=== PATIENT | female | born 1935 | race Caucasian/White ===

== ENCOUNTER 2017-09-05 09:33 | Emergency (ER) | payer OTHER, MEDICARE ==
[~2017-09-05] VITALS: Ht 157.5 cm; Wt 50.0 kg
[~2017-09-05 09:33] MED LIST: SPIR50TA2 PO
[2017-09-05 09:40] VITALS: TEMP 36.7; Ht 157.5 cm; Wt 50.0 kg
--- NOTE | 2017-09-05 10:59 | DIAGNOSTIC IMAGING REPORT ---
L TIBIA/FIBULA 2 VIEWS ROUTINE CLINICAL HISTORY: L leg pain mid wyatt pain. Trauma. COMPARISON: None. DISCUSSION: Nondisplaced oblique fracture proximal fibular shaft. Remaining osseous structures show no additional acute abnormality. Mild soft tissue edema is present. IMPRESSION: Nondisplaced oblique fracture proximal fibular shaft The above report was generated using voice recognition software. It may contain grammatical, syntax or spelling errors. Electronically signed by: Phil Emmanuel M.D. 09/05/2017 10:58 AM Dictated Date/Time: 09/05/2017 10:57 AM
--- NOTE | 2017-09-05 11:00 | DIAGNOSTIC IMAGING REPORT ---
L ANKLE MIN 3 VIEWS ROUTINE CLINICAL HISTORY: med ankle COMPARISON: None. DISCUSSION: Mild degenerative change. Mild soft tissue edema. Small old avulsion tip distal fibula. No acute bony abnormality. Mild soft tissue edema IMPRESSION: Mild soft tissue edema. Small old avulsions. No acute abnormality. The above report was generated using voice recognition software. It may contain grammatical, syntax or spelling errors. Electronically signed by: Phil Emmanuel M.D. 09/05/2017 10:59 AM Dictated Date/Time: 09/05/2017 10:58 AM
--- NOTE | 2017-09-05 11:01 | DIAGNOSTIC IMAGING REPORT ---
R FOOT MIN 3 VIEWS ROUTINE CLINICAL HISTORY: mid of arch pain. Trauma. COMPARISON: None. DISCUSSION: The bones and joint spaces appear intact. There is no evidence of fracture, dislocation or bony disease. There is no evidence for soft tissue swelling. IMPRESSION: Negative study. The above report was generated using voice recognition software. It may contain grammatical, syntax or spelling errors. Electronically signed by: Phil Emmanuel M.D. 09/05/2017 11:00 AM Dictated Date/Time: 09/05/2017 11:00 AM
--- NOTE | 2017-09-05 11:01 | DIAGNOSTIC IMAGING REPORT ---
L FOOT MIN 3 VIEWS ROUTINE CLINICAL HISTORY: arch foot pain. Trauma. COMPARISON: None. DISCUSSION: The bones and joint spaces appear intact. There is no evidence of fracture, dislocation or bony disease. There is no evidence for soft tissue swelling. IMPRESSION: Negative study. The above report was generated using voice recognition software. It may contain grammatical, syntax or spelling errors. Electronically signed by: Phil Emmanuel M.D. 09/05/2017 10:59 AM Dictated Date/Time: 09/05/2017 10:59 AM
--- NOTE | 2017-09-05 11:03 | DIAGNOSTIC IMAGING REPORT ---
R ANKLE MIN 3 VIEWS ROUTINE CLINICAL HISTORY: lat ankle trauma COMPARISON: None. DISCUSSION: Nondisplaced cortical fracture distal fibula. Small avulsion medial malleolus. Lateral soft tissue edema. All remaining osseous structures are unremarkable. IMPRESSION: Nondisplaced transverse cortical fracture distal fibula. The above report was generated using voice recognition software. It may contain grammatical, syntax or spelling errors. Electronically signed by: Phil Emmanuel M.D. 09/05/2017 11:02 AM Dictated Date/Time: 09/05/2017 11:01 AM
--- NOTE | 2017-09-05 11:04 | DIAGNOSTIC IMAGING REPORT ---
R TIBIA/FIBULA 2 VIEWS ROUTINE CLINICAL HISTORY: r mid wyatt trauma. Pain. COMPARISON: None. DISCUSSION: The bones and joint spaces appear intact. There is no evidence of fracture, dislocation or bony disease. There is no evidence for soft tissue swelling. IMPRESSION: Negative study. The above report was generated using voice recognition software. It may contain grammatical, syntax or spelling errors. Electronically signed by: Phil Emmanuel M.D. 09/05/2017 11:02 AM Dictated Date/Time: 09/05/2017 11:02 AM
[2017-09-05] MEDS ORDERED: OXYC1TAB3 PO (12:23)
[2017-09-05 13:17] VITALS: BP 139/82; PULSE 97; O2SAT 96
--- NOTE | 2017-09-05 16:49 | EMERGENCY ROOM VISIT NOTE ---
History Report prepared by Jasonibravindra: Rhea Soriano Under the Supervision of: Dr. Brock Hernandez D.O. First contact with patient: 09:50 Chief Complaint: LEG PAIN,LEG INJURY Stated Complaint: FALL, R LEG PAIN WITH LEFT LEG DISCOMFORT History of Present Illness The patient is an 82 year old female who presents to the Emergency Room with complaints of persistent bilateral leg pain that started prior to arrival. She is accompanied by her daughter. She states one of her shoes got caught and she slipped down 2 stairs while helping to clean her [place] this morning. She fell onto her right side and hit the back of her head during the fall but did not lose consciousness. She does not take blood thinners. The patient currently complains of bilateral leg pain that is worsened by movement. She rates her discomfort as a 10/10 in severity. She can still feel normal sensation in both of her feet and legs. She states she was nauseous prior to arrival to the ED, but is no longer nauseous on exam. Pt denies headache, change in vision, fevers , chest pain, shortness of breath, vomiting, diarrhea, pain with urination, and melena. Source of History: patient, family (daughter) Onset: [employer] Position: leg (bilateral) Symptom Intensity: 10/10 Timing: other (persistent) Modifying Factors (Worsening): movement Associated Symptoms: + nausea, No fevers, No headache, No chest pain, No SOB , No vomiting, No melena, No diarrhea, No urinary symptoms Review of Systems See HPI for pertinent positives & negatives. A total of 10 systems reviewed and were otherwise negative. Past Medical & Surgical Medical Problems: (1) Acute kidney injury (2) ARF (acute renal failure) (3) Dehydration (4) Diarrhea (5) Hyperlipidemia Nec/Nos (6) Hypertension Nos (7) Intractable vomiting (8) Meniere's Disease, Unspecified (9) Osteoporosis Nos (10) Vertigo Family History Heart disease Social History Smoking Status: Never Smoker Alcohol Use: none Drug Use: none Marital Status: Housing Status: lives alone Occupation Status: retired Current/Historical Medications Scheduled Spironolactone (Aldactone), 50 MG PO QAM Scheduled PRN Oxycodone Immediate Rel Tab (Roxicodone Ir), 5 MG PO Q6H PRN for Pain Allergies Coded Allergies: Sulfa Drugs (Verified Allergy, Mild, 10/12/14) Statins (Verified Allergy, Unknown, unknown, 10/12/14) Physical Exam Vital Signs Date Time Temp Pulse Resp B/P (MAP) Pulse Ox O2 Delivery O2 Flow Rate FiO2 09/05/17 13:17 97 18 139/82 96 09/05/17 11:40 82 22 126/65 97 Room Air 09/05/17 09:40 36.7 80 20 138/81 97 Room Air Physical Exam GENERAL: Patient is sitting up on edge of bed, alert, well appearing, well nourished, no distress, non-toxic HEAD: normal cephalic, atraumatic EYE EXAM: normal conjunctiva, PERRL and EOM's grossly intact OROPHARYNX: no exudate, no erythema, lips, buccal mucosa, and tongue normal and mucous membranes are moist EARS: TMs clear b/l NECK: supple, no nuchal rigidity, no adenopathy, non-tender CHEST: stable to compression anteriorly and posteriorly LUNGS: clear to auscultation. Normal chest wall mechanics HEART: no murmurs, S1 normal and S2 normal ABDOMEN: abdomen soft, non-tender, normo-active bowel sounds, no masses, no rebound or guarding. PELVIS: stable to compression anteriorly and posteriorly BACK: Back is symmetrical on inspection and there is no deformity, no midline tenderness, no CVA tenderness. UPPER EXTREMITIES: Full active and passive range of motion of all joints without tenderness to palpation LOWER EXTREMITIES: Full active and passive ROM of bilateral hips and femur without tenderness, left leg with tenderness to mid wyatt down to medial malleolus, foot is nontender, with full ROM of ankle, DP's 2/4. Right lower extremity with tenderness from mid wyatt down to right lateral malleolus with a large amount of swelling, tenderness over mid right arch, DP's 2/4, gross sensation intact bilaterally. NEURO EXAM: Normal sensorium, cranial nerves II-XII grossly intact, normal speech, no gross weakness of arms, no gross weakness of legs. GCS: 15. Medical Decision & Procedures ER Provider Diagnostic Interpretation: Radiology results as stated below per my review and the radiologist's interpretation: L ANKLE MIN 3 VIEWS ROUTINE CLINICAL HISTORY: med ankle COMPARISON: None. DISCUSSION: Mild degenerative change. Mild soft tissue edema. Small old avulsion tip distal fibula. No acute bony abnormality. Mild soft tissue edema IMPRESSION: Mild soft tissue edema. Small old avulsions. No acute abnormality. The above report was generated using voice recognition software. It may contain grammatical, syntax or spelling errors. Electronically signed by: Phil Emmanuel M.D. 09/05/2017 10:59 AM R ANKLE MIN 3 VIEWS ROUTINE CLINICAL HISTORY: lat ankle trauma COMPARISON: None. DISCUSSION: Nondisplaced cortical fracture distal fibula. Small avulsion medial malleolus. Lateral soft tissue edema. All remaining osseous structures are unremarkable. IMPRESSION: Nondisplaced transverse cortical fracture distal fibula. The above report was generated using voice recognition software. It may contain grammatical, syntax or spelling errors. Electronically signed by: Phil Emmanuel M.D. 09/05/2017 11:02 AM L FOOT MIN 3 VIEWS ROUTINE CLINICAL HISTORY: arch foot pain. Trauma. COMPARISON: None. DISCUSSION: The bones and joint spaces appear intact. There is no evidence of fracture, dislocation or bony disease. There is no evidence for soft tissue swelling. IMPRESSION: Negative study. The above report was generated using voice recognition software. It may contain grammatical, syntax or spelling errors. Electronically signed by: Phil Emmanuel M.D. 09/05/2017 10:59 AM R FOOT MIN 3 VIEWS ROUTINE CLINICAL HISTORY: mid of arch pain. Trauma. COMPARISON: None. DISCUSSION: The bones and joint spaces appear intact. There is no evidence of fracture, dislocation or bony disease. There is no evidence for soft tissue swelling. IMPRESSION: Negative study. The above report was generated using voice recognition software. It may contain grammatical, syntax or spelling errors. Electronically signed by: Phil Emmanuel M.D. 09/05/2017 11:00 AM L TIBIA/FIBULA 2 VIEWS ROUTINE CLINICAL HISTORY: L leg pain mid wyatt pain. Trauma. COMPARISON: None. DISCUSSION: Nondisplaced oblique fracture proximal fibular shaft. Remaining osseous structures show no additional acute abnormality. Mild soft tissue edema is present. IMPRESSION: Nondisplaced oblique fracture proximal fibular shaft The above report was generated using voice recognition software. It may contain grammatical, syntax or spelling errors. Electronically signed by: Phil Emmanuel M.D. 09/05/2017 10:58 AM R TIBIA/FIBULA 2 VIEWS ROUTINE CLINICAL HISTORY: r mid wyatt trauma. Pain. COMPARISON: None. DISCUSSION: The bones and joint spaces appear intact. There is no evidence of fracture, dislocation or bony disease. There is no evidence for soft tissue swelling. IMPRESSION: Negative study. The above report was generated using voice recognition software. It may contain grammatical, syntax or spelling errors. Electronically signed by: Phil Emmanuel M.D. 09/05/2017 11:02 AM ED Course ED COURSE: Vital signs were reviewed and showed normal vital signs The patients medical record was reviewed The above diagnostic studies were performed and reviewed. ED treatments and interventions as stated above. 0951: The patient was evaluated in room A9. A complete history and physical examination was performed. 1201: I discussed the patients case with Dr. Hoffman, [facility]. He recommends the patient be placed in a walking boot and follow up in the office next week. 1220: Upon reevaluation, the patient is resting comfortably and feels ready to go home. She doesn't want pain medication and states she has a walker at home. I discussed my findings with the patient and she understands and agrees with the treatment plan. Based on the patients age, coexisting illnesses, exam and lab findings the decision to treat as an outpatient was made. The patient remained stable while under my care. The patient appeared well at the time of discharge. Medical Decision Differential diagnoses include major intracranial, cervical, spinal, thoracic, abdominal, pelvic and neurologic injury. Fracture, contusion, sprain, strain, laceration, abrasions included as well. Patient is an 82-year-old female that presents to ER following a mechanical fall. She did not hit her head. She has no other complaints with the exception of pain in the bilateral shins and ankles. Right ankle is swollen. X -rays show a left proximal fibula and distal fibula fracture. There is a questionable acute versus subacute fracture of the right ankle. Discuss with orthopedics. Patient did request to go home. Based on this after long discussion we placed her in 1 walking boot which was placed on the left lower extremity. She has a walker at home which she will use. She was given narcotics although she notes that she will not use these. It would be ideal to have walking boots on both sides but due to her age and favored she would be a higher fall risk and consequently only placed one walking boot on the left lower extremity. She will follow up with orthopedics as an outpatient. Discussed with Pt concerning signs and symptoms to watch out for. Pt was instructed to follow up with their PCP and discussed with the patient their option to return to the ED at anytime for persistent or worsening symptoms. The appropriate anticipatory guidance and out-patient management, including indications for return to the emergency department, were explained at length to the patient and understood. Medication Reconcilliation Current Medication List: was personally reviewed by me Blood Pressure Screening Patient's blood pressure: Normal blood pressure Blood pressure disposition: Did not require urgent referral Consults Time Called: 1130 Consulting Physician: Dr. Hoffman, [facility] Returned Call: 1201 I discussed the patients case with Dr. Hoffman, [facility]. He recommends the patient be placed in a walking boot and follow up in the office next week. Impression Primary Impression: Closed fracture of both ankles Scribe Attestation The scribe's documentation has been prepared under my direction and personally reviewed by me in its entirety. I confirm that the note above accurately reflects all work, treatment, procedures, and medical decision making performed by me. Departure Information Dispostion Home / Self-Care Prescriptions Oxycodone Immediate Rel Tab (ROXICODONE IR) 5 Mg Tab 5 MG PO Q6H Y for Pain, #10 TAB Prov: Brock Hernandez, 09/05/17 Referrals Mike East MD (PCP) Patient Instructions Ankle Fx, ED Fx Ankle Lateral Malleolus, My [facility] Additional Instructions Please follow up with your primary care doctor with in the next 24 hours. Any worsening of your symptoms, please return to the ED immediately. This includes any fevers greater than 100.4, worsening pain, chest pain, shortness breath, persistent nausea, vomiting, unable to eat or drink, or any other concerning signs or symptoms from your standpoint. Your found to have 2 fractures of your left tibia and one fracture of the right ankle. Please use the walking boot on her left lower leg. Please use a walker when walking. Please follow-up with orthopedics within the next week. You were also given a prescription for a narcotic. While taking this medication you should also not drive, operate machinery and or work. Problem Qualifiers Primary Impression: Closed fracture of both ankles Encounter type: initial encounter Qualified Codes: S82.891A - Other fracture of right lower leg, initial encounter for closed fracture; S82.892A - Other fracture of left lower leg, initial encounter for closed fracture
== END 2017-09-05 13:18 | disposition home or self-care (01) ==
LOC: C.EDB 09:36 → C.EDA 13:18
DX: S82.424A Nondisplaced transverse fracture of shaft of right fibula, initial encounter for closed fracture (principal); S82.832A Other fracture of upper and lower end of left fibula, initial encounter for closed fracture; W10.9XXA Fall (on) (from) unspecified stairs and steps, initial encounter; Y92.22 Religious institution as the place of occurrence of the external cause; Y93.E9 Activity, other interior property and clothing maintenance; I10 Essential (primary) hypertension; E78.5 Hyperlipidemia, unspecified; H81.09 Meniere's disease, unspecified ear; M81.0 Age-related osteoporosis without current pathological fracture; Z88.2 Allergy status to sulfonamides; Z88.8 Allergy status to other drugs, medicaments and biological substances

== ENCOUNTER 2019-06-09 17:23 | Inpatient (IN) ==
--- OUTSIDE RECORDS SUMMARY | 2019-06-09 17:26 | External Medical Summary | Continuity of Care Document ---
:1935 Author Name Elyssa Roberto, Provider Address Unavailable Unavailable , Care Team Providers Name Role Phone Cyril [email or web address] [place] [facility], C Unavailable Unavailable Unavailable Unavailable Unavailable Assessments Assessed Problems:Epistaxis Problems Epistaxis (784.7) (R04.0) Allergies and Adverse Reactions Cipro TABS (Allergy) Sulfa Drugs (Allergy) Medications Aldactone 50 MG Oral Tablet Refills: 0 Meclizine HCl - 12.5 MG Oral Tablet Refills: 0 KlonoPIN Wafer 0.5 MG TBDP Refills: 0 Norvasc 5 MG Oral Tablet Refills: 0 Vitamin D TABS Refills: 0 Mupirocin 2 % External Ointment; Apply a generous amount of ointment 2-3 times per day as directed Felisa Cabrera Start: 18-Mar-2010 Quantity: 1 22 GM Tube Refills: 3 Procedures History of Appendectomy Status: Complete d Immunizations Immunizations not documented Family History Father Family history of Acute Myocardial Infarction (V17.3) Status : Active Social History - Smoking Status Unknown if ever smoked Interventions Medication ChangesMupirocin 2 % External Ointment - Start Plan of Treatment Planned Observations Planned Goals not documented Results No Known Results Results not documented Encounters Appointment; Cyril Cabrera M.D. 18-Mar-2010 14:40 Encounter Diagnosis: Problem not documented
--- NOTE | 2019-06-09 18:07 | XRay Report ---
XR hip RT min 2V CLINICAL HISTORY: Right hip pain following fall. COMPARISON: CT of the abdomen and pelvis July 20, 2014. FINDINGS: Note is made of an acute displaced right femoral neck fracture, likely subcapital. Distal component is displaced anteriorly. No additional fractures are identified on this exam. No osseous le ines is identified. IMPRESSION: Acute displaced right femoral neck fracture. ACT 112: Negative or not required by law. Electronically signed by: Junaid Cuevas M.D. 06/09/2019 6:05 PM
[2019-06-09] MEDS ORDERED: ACETAMINOPHEN 500 MG TAB PO PRN (18:08)
[2019-06-09] MEDS ORDERED: HYDROmorphone INJ 0.5 MG/0.5 ML SYR IV PRN ×3 (18:08→20:59)
[2019-06-09] MEDS ORDERED: LACTATED RINGER'S 1,000 ML IV SCH (18:15)
--- NOTE | 2019-06-09 18:39 | XRay Report ---
SINGLE VIEW CHEST CLINICAL HISTORY: Hip fracture. FINDINGS: An AP, portable, semierect chest radiograph is compared to study dated 08/21/2014. The examin ation is degraded by portable technique and patient rotation. The heart is normal for projection. The re is a large hiatal hernia. Chronic interstitial thickening is similar to previous. There is bibasil ar scarring/atelectasis. No airspace consolidation is seen typical for pneumonia and there is no larg e pleural effusion. No pneumothorax is seen. The skeletal structures are osteopenic. The bony thorax is grossly intact. Degenerative change and scoliosis are noted in the thoracic spine. IMPRESSION: 1. No active disease in the chest. 2. Large hiatal hernia. ACT 112: Negative or not required by law. Electronically signed by: Maximo Crowley M.D. 06/09/2019 6:38 PM
[2019-06-09 19:15] LABS: Basophils # (auto) 0.01 K/uL (0-0.2); Basophils % (auto) 0.2 %; Eosinophils # (auto) 0.05 K/uL (0-0.5); Eosinophils % (auto) 0.8 %; Hemoglobin 12.3 g/dL (12.0-16.0); Immature Granulocytes # (auto) 0.01 K/uL (0.00-0.02); Immature Granulocytes % (auto) 0.2 %; Lymphocytes # (auto) 0.93 K/uL (1.2-3.4); Mean Corpuscular Hemoglobin 32.9 pg (25-34); Mean Corpuscular Hgb Conc 33.2 g/dL (32-36); Mean Corpuscular Volume 98.9 fL (80-100); Mean Platelet Volume 9.1 fL (7.4-10.4); Monocytes # (auto) 0.21 K/uL (0.11-0.59); Monocytes % (auto) 3.4 %; Neutrophils # (auto) 5.01 K/uL (1.4-6.5); Neutrophils % (auto) 80.4 %; Platelet Count 201 K/uL (130-400); RDW Coefficient of Variation 16.8 % (11.5-14.5); RDW Standard Deviation 59.1 fL (36.4-46.3); Red Blood Count 3.74 M/uL (4.2-5.4); White Blood Count 6.22 K/uL (4.8-10.8)
[2019-06-09] MEDS ORDERED: ONDANSETRON INJ 2 MG/ML 2 ML VIAL ONE (19:16)
[2019-06-09] MEDS ORDERED: ONDANSETRON INJ 2 MG/ML 2 ML VIAL IV STA ×2 (19:17→20:11)
[2019-06-09 19:32] LABS: BUN Creatinine Ratio 27.1 (10-20); Calcium 8.6 mg/dl (8.5-10.1); Creatinine Clr Calc Pharmacy 35.3 ml/min; Est GFR (African American) 55.4; Est GFR (Non-African American) 47.8; Partial Thromboplastin Ratio 0.9; Partial Thromboplastin Time 25.7 Seconds (21.0-31.0); Potassium 4.2 mmol/L (3.5-5.1); Prothrombin Time 10.5 Seconds (9.0-12.0)
[2019-06-09 20:29] LABS: Appearance Urine Clear (Clear); Bilirubin Urine Negative (Negative); Blood Urine Negative (Negative); Color Urine Yellow; Glucose Urine UA Negative (Negative); Ketones Urine Negative (Negative); Leukocyte Esterase Urine Negative (Negative); Nitrite Urine Negative (Negative); Protein Urine Negative (Negative); Specific Gravity Urine 1.013 (1.000-1.030); Urobilinogen Urine Negative (Negative)
[2019-06-09] MEDS ORDERED: FLUTICASONE PROPIONATE NA SPR 16 GM BTL PRN (20:59)
[2019-06-09] MEDS ORDERED: ONDANSETRON INJ 2 MG/ML 2 ML VIAL IV PRN (20:59)
[2019-06-09] MEDS ORDERED: POLYETHYLENE (MIRALAX) 17 GM PACK PO PRN (20:59)
--- NOTE | 2019-06-09 21:13 | Emergency Department Note ---
Entered by Shaneka Castañeda acting as a scribe for Waylon Urbina MD ED Provider Note CHIEF COMPLAINT: fall HISTORY OF PRESENT ILLNESS: The patient is a 84 year old F who presents to the Emergency Room with complaints of an episode of a fall that occurred prior to arrival. The patient denies hitting her head or losing consciousness during her fall. She notes that she is currently experiencing hip pain. She adds that her pain radiates down her right leg. She rates her pain as 7 out of 10. She notes that her orthopedic surgeon is Dr. Sanabira. Pt denies LOC, headache, fevers, chills, diaphoresis, visual changes, neck pain, chest pain, breathing difficulties, nausea, vomiting, abdominal pain, back pain, arm pain, melena, hematochezia, urinary symptoms, numbness, weakness, lymphadenopathy, rash, or other complaints. REVIEW OF SYSTEMS: See HPI for pertinent positives and negatives. A total of ten systems were reviewed and were otherwise negative. PMHx/PSHx: Hiatal hernia, hyperlipidemia, Meniere disease, osteoarthritis, appendectomy SOCIAL HISTORY: Patient lives at home. The patient drinks alcohol. PHYSICAL EXAM: GENERAL: Awake, alert, uncomfortable-appearing, in no distress HENT: Normocephalic, atraumatic. Oropharynx unremarkable. EYES: PERRL. Normal conjunctiva. Sclera non-icteric. NECK: Inspection normal. Non-tender. Supple. No nuchal rigidity. FROM. No masses. RESPIRATORY: Clear to auscultation. No wheezes. No rales. Normal respiratory effort. CARDIAC: Normal rate. Normal rhythm. No murmurs. No rubs. Extremities warm and well perfused. Pulses equal. No JVD. GI: Soft, non-distended. No tenderness to palpation. No rebound or guarding. No masses. RECTAL: Deferred. MUSCULOSKELETAL: Atraumatic. Chest examination reveals no tenderness. The back is symmetrical on inspection without obvious abnormality. There is no CVA tenderness to palpation. No joint edema. Tenderness of right hip. LOWER EXTREMITIES: Calves are equal size bilaterally and non-tender. No edema. No discoloration. NEURO: Normal sensorium. No sensory deficits. ROM is limited secondary to pain SKIN: No rash or jaundice noted. EMERGENCY DEPARTMENT COURSE: 1814: The patient was evaluated in room B4B, and a complete history and physical examination were performed. 1947: I reviewed the patient's case with Dr. Watkins, Orthopedic [place]. He states that he is going to inform the patient's orthopedist and recommend a normal fracture case. 1949: I reviewed the patient's case with Dr. Montalvo, [facility] Hospitalist. He will evaluate the patient for further management. MEDICAL DECISION MAKING: Triage Nursing notes reviewed and agree them. Additional history obtained from family. The patient's history was concerning for traumatic injury. Differential diagnosis: Etiologies such as fracture, dislocation, neurovascular compromise, compartment syndrome, soft tissue injury, as well as others were entertained. Physical examination: Consistent with an isolated hip injury. ER treatment provided: IV lock Zofran 4mg IV Morphine IV NPO Bedrest On reassessment the patient felt better. Diagnostics interpreted by me: ECG: No acute process. The labs revealed an unremarkable CBC, coags, and chemistry panel. Imaging studies: X-ray imaging revealed a right hip fracture. Closed. The patient has an isolated hip fracture and will need admission to the hospital. Consultation: A consultation was placed with orthopedics and the hospitalist. The case was discussed and diagnostics were reviewed. The patient was evaluated in the ER for further treatment. IMPRESSION: right hip fracture, fall PLAN: Admitted as inpatient. The scribe's documentation has been prepared under my direction and personally reviewed by me in its entirety. I confirm that the note above accurately reflects all work, treatment, procedures, and medical decision making performed by me. Impression & Plan Closed right hip fracture, Fall Past Med/Surg History Medical History Displaced fracture of right femoral neck Hiatal hernia Hyperlipidemia Meniere disease Osteoarthritis Vertigo (Chronic) Surgical History History of appendectomy History of cataract surgery History of colonoscopy History of open reduction and internal fixation (ORIF) procedure rt/left arm (s/p fx after falling) Social History Preferred Language: Nepali Communication Ability: Effective Pigs Feet Finisher Required: No Beliefs That Will Affect Care: None marital status: / Current Living Situation: Family Current Living Situation Comment: lives with daughter Cher Other Information That Helps Us Care for You: No Feels Safe at Home: Yes Safety Concerns: Feels Safe At This Time Smoking Status: Never smoker Do You Dip or Chew Tobacco: No ; Second Hand Exposure: No ; Tobacco Cessation Education Requested by Patient: No Hx Alcohol Use: Yes Alcohol type: wine Hx Substance Use: No Results & Data Vital Signs Vital Signs - 24 hr 06/09/19 17:37 06/09/19 19:49 Pulse Rate 94 H 76 Pulse Rate from SpO2 Sensor 76 Respiratory Rate 20 23 Respiratory Effort / Characteristics Non-Labored Spontaneous Respiratory Depth Normal Respiratory Pattern Regular Blood Pressure 143/65 H 151/63 H Blood Pressure Mean 91 91 Pulse Oximetry 96 97 Oxygen Delivery Method Room Air Sepsis Recent Fever Within 48 Hours No Sepsis Action Taken by Nursing No Action Required Home Medications Current Medication List: was personally reviewed by me Laboratory Data Attestation: I reviewed the patient's lab results. Result diagrams: 06/10/19 05:21 06/10/19 05:21 Lab Results 06/09/19 06/09/19 06/09/19 Range/Units 19:04 19:07 19:07 WBC 6.22 (4.8-10.8) K/uL RBC 3.74 L (4.2-5.4) M/uL Hgb 12.3 (12.0-16.0) g/dL Hct 37.0 (37-47) % MCV 98.9 (80-100) fL MCH 32.9 (25-34) pg MCHC 33.2 (32-36) g/dL RDW Std Deviation 59.1 H (36.4-46.3) fL RDW Coeff of Vanna 16.8 H (11.5-14.5) % Plt Count 201 (130-400) K/uL MPV 9.1 (7.4-10.4) fL Immature Gran % (Auto) 0.2 % Neut % (Auto) 80.4 % Lymph % (Auto) 15.0 % [place] % (Auto) 3.4 % Eos % (Auto) 0.8 % Baso % (Auto) 0.2 % Immature Gran # (Auto) 0.01 (0.00-0.02) K/uL Neut # (Auto) 5.01 (1.4-6.5) K/uL Lymph # (Auto) 0.93 L (1.2-3.4) K/uL [place] # (Auto) 0.21 (0.11-0.59) K/uL Eos # (Auto) 0.05 (0-0.5) K/uL Baso # (Auto) 0.01 (0-0.2) K/uL PT 10.5 (9.0-12.0) Seconds INR 1.0 (0.9-1.1) APTT 25.7 (21.0-31.0) Seconds PTT Ratio 0.9 Sodium (136-145) mmol/L Potassium (3.5-5.1) mmol/L Chloride (98-107) mmol/L Carbon Dioxide (21-32) mmol/L Anion Gap (3-11) BUN (7-18) mg/dl Creatinine (0.6-1.2) mg/dl Est Cr Clr Drug Dosing ml/min Est GFR ( Amer) Est GFR (Non-Af Amer) BUN/Creatinine Ratio (10-20) Glucose (70-99) mg/dl Calcium (8.5-10.1) mg/dl Blood Type O Positive Antibody Screen NEGATIVE 06/09/19 Range/Units 19:07 WBC (4.8-10.8) K/uL RBC (4.2-5.4) M/uL Hgb (12.0-16.0) g/dL Hct (37-47) % MCV (80-100) fL MCH (25-34) pg MCHC (32-36) g/dL RDW Std Deviation (36.4-46.3) fL RDW Coeff of Vanna (11.5-14.5) % Plt Count (130-400) K/uL MPV (7.4-10.4) fL Immature Gran % (Auto) % Neut % (Auto) % Lymph % (Auto) % [place] % (Auto) % Eos % (Auto) % Baso % (Auto) % Immature Gran # (Auto) (0.00-0.02) K/uL Neut # (Auto) (1.4-6.5) K/uL Lymph # (Auto) (1.2-3.4) K/uL [place] # (Auto) (0.11-0.59) K/uL Eos # (Auto) (0-0.5) K/uL Baso # (Auto) (0-0.2) K/uL PT (9.0-12.0) Seconds INR (0.9-1.1) APTT (21.0-31.0) Seconds PTT Ratio Sodium 137 (136-145) mmol/L Potassium 4.2 (3.5-5.1) mmol/L Chloride 107 (98-107) mmol/L Carbon Dioxide 26 (21-32) mmol/L Anion Gap 4.0 (3-11) BUN 29 H (7-18) mg/dl Creatinine 1.06 (0.6-1.2) mg/dl Est Cr Clr Drug Dosing 35.3 ml/min Est GFR ( Amer) 55.4 Est GFR (Non-Af Amer) 47.8 BUN/Creatinine Ratio 27.1 H (10-20) Glucose 98 (70-99) mg/dl Calcium 8.6 (8.5-10.1) mg/dl Blood Type Antibody Screen Administered Medications Hydromorphone HCl (Dilaudid) 0.5 mg IV Q3H PRN PRN Reason: Pain Stop: 06/23/19 20:58 Last Admin: 06/10/19 10:32 Dose: 0.5 mg Documented by: [id number] Hydroxyurea (Hydrea) 1,000 mg PO [id number]@0900 [facility] Stop: 07/10/19 08:59 Last Admin: 06/10/19 08:38 Dose: 1,000 mg Documented by: [id number] Cosigned by: [id number] Sodium Chloride (Nss 1000ml) 1,000 mls @ 80 mls/hr IV .[id number] [facility] Stop: 07/09/19 20:58 Last Infusion: 06/10/19 18:17 Dose: 80 mls/hr Documented by: [id number] Infusion: 06/10/19 13:36 Dose: 0 mls/hr Documented by: [id number] Admin: 06/10/19 08:38 Dose: 80 mls/hr Documented by: [id number] Infusion: 06/10/19 08:38 Dose: 80 mls/hr Documented by: [id number] Infusion: 06/10/19 05:20 Dose: 80 mls/hr Documented by: [id number] Admin: 06/09/19 21:31 Dose: 80 mls/hr Documented by: [id number] Ondansetron HCl (Zofran) 4 mg IV Q6H PRN PRN Reason: Nausea Stop: 07/09/19 20:58 Last Admin: 06/10/19 10:32 Dose: 4 mg Documented by: [id number] Spironolactone (Aldactone) 25 mg PO DAILY [facility] Stop: 07/10/19 08:59 Last Admin: 06/10/19 08:39 Dose: 25 mg Documented by: [id number] Discontinued Medications Hydromorphone HCl (Dilaudid) 0.5 mg IV Q20M PRN PRN Reason: Severe Pain (Rating 7,8,9,10) Stop: 06/23/19 18:07 Last Admin: 06/09/19 19:12 Dose: 0.5 mg Documented by: [id number] Lactated Ringer's (Lr) 1,000 mls @ 75 mls/hr IV .[id number] HANDY Stop: 07/09/19 18:14 Last Infusion: 06/10/19 01:06 Dose: 0 mls/hr Documented by: [id number] Admin: 06/09/19 19:12 Dose: 75 mls/hr Documented by: [id number] Ondansetron HCl (Zofran) Confirm Administered Dose 4 mg .ROUTE .STK-MED ONE Stop: 06/09/19 19:17 Last Admin: 06/09/19 19:18 Dose: Not Given Documented by: [id number] Ondansetron HCl (Zofran) 4 mg IV NOW STA Stop: 06/09/19 19:18 Last Admin: 06/09/19 19:18 Dose: 4 mg Documented by: [id number] Ondansetron HCl (Zofran) 4 mg IV NOW STA Stop: 06/09/19 20:12 Last Admin: 06/09/19 20:19 Dose: 4 mg Documented by: [id number] Imaging Data Radiologist's Impression: Radiology results as stated below per my review and the radiologist's interpretation: XR hip RT min 2V CLINICAL HISTORY: Right hip pain following fall. COMPARISON: CT of the abdomen and pelvis July 20, 2014. FINDINGS: Note is made of an acute displaced right femoral neck fracture, likely subcapital. Distal component is displaced anteriorly. No additional fractures are identified on this exam. No osseous lesion is identified. IMPRESSION: Acute displaced right femoral neck fracture. ACT 112: Negative or not required by law. Electronically signed by: Junaid Cuevas M.D. 06/09/2019 6:05 PM SINGLE VIEW CHEST CLINICAL HISTORY: Hip fracture. FINDINGS: An AP, portable, semierect chest radiograph is compared to study dated 08/21/2014. The examination is degraded by portable technique and patient rotation. The heart is normal for projection. There is a large hiatal hernia. Chronic interstitial thickening is similar to previous. There is bibasilar scarring/atelectasis. No airspace consolidation is seen typical for pneumonia and there is no large pleural effusion. No pneumothorax is seen. The skeletal structures are osteopenic. The bony thorax is grossly intact. Degenerative change and scoliosis are noted in the thoracic spine. IMPRESSION: 1. No active disease in the chest. 2. Large hiatal hernia. ACT 112: Negative or not required by law. Electronically signed by: Maximo Crowley M.D. 06/09/2019 6:38 PM ECG Data Attestation: I personally reviewed and interpreted this ECG as follows: Indication: + other (fall) Rate (beats per minute): 82 ECG Intervals/blocks: + Normal QRS ECG [place]: + Normal ECG ST segments: no ST elevation ECG Findings: + Other (nonspecific ST) Blood Pressure Blood Pressure Findings: Elevated blood pressure Blood Pressure Disposition: further management by hospitalist Discharge Plan Visit Data *Final* Discharge Date/Time: 06/09/19 20:24 Chief Complaint: Hip Pain Stated Complaint: HIP PAIN Other Complaint: Fall ED Provider: Waylon Urbina Discharge Problem: Closed right hip fracture, Fall Patient Disposition: Admitted As Inpatient Discharge Instructions Interventions: ED Discharge Assessment Last Done: 06/09/19 20:24 Discharge Problem: Closed right hip fracture Qualifiers: Encounter type: initial encounter Qualified Code(s): S72.001A - Fracture of unspecified part of neck of right femur, initial encounter for closed fracture Fall Qualifiers: Encounter type: initial encounter Qualified Code(s): W19.XXXA - Unspecified fall, initial encounter The scribe's documentation has been prepared under my direction and personally reviewed by me in its entirety. I confirm that the note above accurately reflects all work, treatment, procedures, and medical decision making performed by me.
[2019-06-09] MEDS ORDERED: bisacodyL 5 MG TABEC PO PRN (21:21)
[2019-06-09] MEDS: SODIUM CHLORIDE 0.9% 1000ML 1,000 ML IV SCH (21:31)
--- NOTE | 2019-06-09 21:34 | History and Physical Report ---
DATE OF ADMISSION: 06/09/2019 CHIEF COMPLAINT: Status post fall and right hip fracture. HISTORY OF PRESENT ILLNESS: This is an 84-year-old female with past medical history significant for hyperlipidemia, chronic constipation, chronic kidney disease stage III, osteoporosis, meniere's disease, essential thrombocythemia, statin intolerance, who presents with fall and right hip fracture. The patient lives with her daughter. The patient was in the backyard with her dogs. When she turned around, she lost balance and fell down on the right side. Could not able to get up. Has severe pain and was brought in and imaging studies show right femoral neck fracture. Received pain medications. Pain is controlled, but the pain medication is causing her nausea and she is slightly drowsy with the pain medications. Prior to that she was fine. She ambulates without any support. She can climb steps without any issues. No complaints of chest pain or shortness of breath or cough or headaches as per the daughter. No belly pain, no diarrhea or constipation. Normal bladder movements. Appetite is good. No dysphagia. Sleeps okay. No swelling in the legs, no rash. Currently, somewhat sleepy but the patient says she is sick to the stomach, but otherwise she is doing okay. Hemodynamically stable. ALLERGIES: SULFA ANTIBIOTICS. PAST MEDICAL HISTORY: As mentioned above. PAST SURGICAL HISTORY: Appendectomy, cautery of the nosebleed. MEDICATIONS: The patient is on aspirin 81 mg p.o. daily, hydroxyurea 1000 mg Thursday and Thursday and 500 mg on Sundays, Tuesdays, Wednesdays, , and Saturdays, spironolactone 25 mg p.o. daily, Flonase 2 sprays into each nostril daily, MiraLax p.r.n., Dulcolax p.r.n. FAMILY HISTORY: Significant for brother had lung cancer, father had NV, paternal grandmother had NV. SOCIAL HISTORY: , currently lives with daughter. No smoking. Alcohol occasionally. No drugs. REVIEW OF SYSTEMS: As per HPI. Rest of the systems negative. PHYSICAL EXAMINATION: GENERAL: The patient is old and frail, not in acute distress. VITAL SIGNS: Temperature 36, afebrile, pulse 78, respiratory rate 21, blood pressure 151/63, oxygen 97% on room air. HEENT: No pallor, no icterus. Pupils are equal, round, reactive to light. NECK: No JVD, no neck masses, no carotid bruits. CARDIOVASCULAR: S1, S2 heard, regular rate and rhythm, no murmur, no gallop. RESPIRATORY SYSTEM: Normal AP diameter. No accessory muscle use. No wheezing, no crackles. ABDOMEN: Soft, bowel sounds present. Mild abdominal discomfort. No guarding, no rigidity, no distention. CENTRAL NERVOUS SYSTEM: Somewhat drowsy but obeys commands, oriented. EXTREMITIES: Right lower extremity is slightly shortened. No edema, no erythema seen. LABORATORIES DATA: WBC 6.2, hemoglobin 12.3, hematocrit 37, platelets 201. PT 10.5, INR 1, APTT 25.7. Sodium 137, potassium 4.2, chloride 107, bicarbonate 26, BUN 29, creatinine 1.06, serum glucose 98, calcium 8.6. IMAGING DATA: Hip x-rays, acute displaced right femoral neck fracture. Chest x-ray, no acute disease in the chest, large hiatal hernia. EKG: Normal sinus rhythm with a rate of 82, nonspecific ST changes in inferior and lateral leads. ASSESSMENT AND PLAN: This is an 84-year-old female who presents with mechanical fall and right hip fracture. 1. Status post mechanical fall, right hip fracture, acute displaced right femoral neck fracture. Pain control with IV Dilaudid p.r.n., IV fluids, normal saline at 80 mL per hour, IV antiemetics p.r.n. We will keep her n.p.o. Consult orthopedics. Her labs and chest x-ray and EKG are unremarkable. The patient is otherwise active. The patient is at acceptable risk to proceed with surgery. Postsurgical management as per orthopedics. 2. History of meniere's disease. Continue home spironolactone. 3. History of essential thrombocythemia, on hydroxyurea. 4. Chronic kidney disease stage III. We will follow the labs. 5. Constipation, MiraLax p.r.n. 6. Deep venous thrombosis prophylaxis, no anticoagulation because of possible surgery and could not place SCDs because of the hip fracture. Post-surgery deep venous thrombosis prophylaxis as per orthopedics. DISPOSITION: Admit to medical floor. PT and OT per discharge. Social service to help with discharge planning. The patient is level 1 full code. MTDD
[2019-06-10 05:33] LABS: Eosinophils # (auto) 0.04 K/uL (0-0.5); Eosinophils % (auto) 0.9 %; Hematocrit (blood only) 32.4 % (37-47); Hemoglobin 10.9 g/dL (12.0-16.0); Immature Granulocytes # (auto) 0.01 K/uL (0.00-0.02); Immature Granulocytes % (auto) 0.2 %; Lymphocytes # (auto) 0.74 K/uL (1.2-3.4); Lymphocytes % (auto) 15.8 %; Mean Corpuscular Hgb Conc 33.6 g/dL (32-36); Mean Corpuscular Volume 98.2 fL (80-100); Mean Platelet Volume 9.3 fL (7.4-10.4); Monocytes # (auto) 0.22 K/uL (0.11-0.59); Monocytes % (auto) 4.7 %; Neutrophils # (auto) 3.67 K/uL (1.4-6.5); Neutrophils % (auto) 78.4 %; Platelet Count 169 K/uL (130-400); RDW Coefficient of Variation 17.1 % (11.5-14.5); RDW Standard Deviation 59.4 fL (36.4-46.3); White Blood Count 4.68 K/uL (4.8-10.8)
[2019-06-10 05:53] LABS: BUN Creatinine Ratio 25.2 (10-20); Creatinine Clr Calc Pharmacy 33.9 ml/min; Est GFR (African American) 62.5; Est GFR (Non-African American) 53.9; Potassium 4.5 mmol/L (3.5-5.1)
--- NOTE | 2019-06-10 08:21 | Orthopedic Consultation ---
Date of Consultation June 10, 2019 Assessment & Plan (1) Displaced fracture of right femoral neck: We discussed the diagnosis, prognosis and treatment recommendations for displaced femoral neck right fracture. I recommended hemiarthroplasty as soon as medically stable. Appreciate the internal medicine admission and optimization for surgery. Plan for the operating room today: Right hip hemiarthroplasty. Expect admission for PT/OT evaluation and determination for next disposition. Plan for 6 weeks of DVT prophylaxis and would appreciate internal medicine recommendations. Expect to be weightbearing as tolerated with posterior hip precautions. We discussed the inherent risks of surgery which include, but are not limited to, infection, neurovascular injury, arthrofibrosis, need for revision surgery, need for additional surgery, and complications related to venous thromboembolic events and general and/or regional anesthesia. The patient demonstrated a good understanding, asked appropriate questions, and was agreeable to proceed with elective surgery. I will also contact her daughter, Cher. Informed consent was documented today. History of Present Illness Reason for Consultation: Right femoral neck fracture Attending Physician: Catrina Kim MD History of Present Illness 84-year-old female who is independently ambulatory within the community without assistive device, unfortunately sustained a fall at home in her backyard resulting in immediate pain and inability to ambulate. She denies antecedent hip pain. She was taken to the ED where a femoral neck fracture was diagnosed. She denies numbness and tingling nor other sites of pain.. She reports discomfort isolated to the right groin. She was admitted to medicine and put on bedrest. She is NPO overnight. Allergies Allergy/AdvReac Type Severity Reaction Status Date / Time Sulfa (Sulfonamide Allergy Mild Hives Verified 06/09/19 19:48 Antibiotics) Home Medications Home Medications Medication Instructions Recorded Confirmed Type aspirin [Aspir-81] 81 mg PO DAILY PRN 06/09/19 06/09/19 History bisacodyl 10 mg PO DAILY PRN 06/09/19 06/09/19 History fluticasone propionate [Flonase 2 spray INTRANASAL DAILY PRN 06/09/19 06/09/19 History Allergy Relief] hydroxyurea [Hydrea] 1,000 mg PO MOWEFR 06/09/19 06/09/19 History hydroxyurea [Hydrea] 500 mg PO SUTUTHSA 06/09/19 06/09/19 History polyethylene glycol 3350 [Miralax] 17 g PO DAILY PRN 06/09/19 06/09/19 History spironolactone [Aldactone] 25 mg PO DAILY 06/09/19 06/09/19 History Patient History Social History Preferred Language: Taiwanese Communication Ability: Effective Technician Preventative Medicine Required: No Beliefs That Will Affect Care: None Current Living Situation: Family Current Living Situation Comment: lives with daughter Cher Other Information That Helps Us Care for You: No Feels Safe at Home: Yes Safety Concerns: Feels Safe At This Time Smoking Status: Never smoker Do You Dip or Chew Tobacco: No ; Second Hand Exposure: No ; Tobacco Cessation Education Requested by Patient: No Hx Alcohol Use: Yes Alcohol type: wine Hx Substance Use: No Review of Systems Constitutional: no fever, no chills, no body aches and no malaise Respiratory: no cough, no chest congestion and no dyspnea Cardiovascular: no chest pain Gastrointestinal: no abdominal pain, no nausea and no vomiting Musculoskeletal: as per Subjective / HPI Integumentary: no lesions Neurologic: + falls Psychiatric: no anxiety and no confusion Physical Exam Constitutional: + well hydrated, + thin, well groomed and cooperative; no acute distress and not ill appearing Respiratory: normal respiratory effort; no respiratory distress and no labored breathing Cardiovascular: Rate/Rhythm: regular rate Extremities: normal capillary refill; no calf tenderness and no pedal edema Gastrointestinal (Abdomen): Inspection/Auscultation: abdomen normal to inspection; abdomen not distended Musculoskeletal: Right lower extremity: Focal tenderness to the groin. No greater trochanter tenderness. Positive dorsiflexion, plantarflexion, EHL. Sensation grossly intact to light touch and 2+ DP PT pulses. The skin over the hip shows no evidence of significant trauma such as ecchymosis or disruption. Psychiatric: Orientation: alert, oriented to person, oriented to place and cooperative Apperance: appropriately groomed Results & Data Vital Signs (Past 12 Hours) Vital Signs Temp Pulse Pulse Resp BP Pulse Ox 06/10/19 07:13 36.9 C 68 16 108/66 97 06/09/19 23:37 36.5 C 74 16 114/66 98 06/09/19 20:40 36.2 C L 76 14 114/70 99 Laboratory Tests 06/09/19 06/09/19 06/10/19 19:04 20:00 05:21 WBC 4.68 L Hgb 10.9 L Hct 32.4 L Plt Count 169 Creatinine Ur Leukocyte Esterase Negative Blood Type O Positive Antibody Screen NEGATIVE 06/10/19 05:21 WBC Hgb Hct Plt Count Creatinine 0.96 Ur Leukocyte Esterase Blood Type Antibody Screen PG Care Time/CCT Total # of Minutes Spent Total Time Spent with Patient: Total time spent is greater than 50% in coordination of care (as documented) at patient's floor/unit and/or counseling patient:
[2019-06-10] MEDS: SODIUM CHLORIDE 0.9% 1000ML 1,000 ML IV SCH (08:38)
[2019-06-10] MEDS: HYDROXYUREA 500 MG CAP PO SCH (08:38)
[2019-06-10] MEDS: SPIRONOLACTONE 25 MG TAB PO SCH (08:39)
--- NOTE | 2019-06-10 14:22 | History & Physical Bridge Note ---
Date of Service June 10, 2019 History & Physical Bridge Note I have examined the patient, reviewed the History & Physical and in the interval since the performance of the History & Physical I have noted the following changes of clinical significance: no changes noted
[2019-06-10] MEDS ORDERED: PROPOFOL IV EMULSION 10 MG/ML 20 ML VIAL IV ONE (14:59)
[2019-06-10] MEDS ORDERED: LIDOCAINE HCL 2% 2 ML VIAL/AMP(20MG/ML) INFIL ONE (14:59)
[2019-06-10] MEDS ORDERED: MIDAZOLAM HCL 1 MG/ML 2ML VIAL ONE (15:02)
[2019-06-10] MEDS ORDERED: fentaNYL citrate 100 MCG/2 ML VIAL ONE (15:02)
--- NOTE | 2019-06-10 15:04 | Anesthesiology Consultation ---
Date of Service June 10, 2019 Assessment & Plan (1) Encounter for pre-operative examination: Chart Review Chart Review: Acceptable Risk for Surgery and Patient NOT seen in Pre Admission Testing Consults Requested none History Surgery Operation Date: 06/10/19 08:20 Proposed Procedures p Right Anterior Hip Hemiarthroplasty - Reji Stockton DO Height/Weight Height: 5 ft 2 in Weight: 51.3 kg Allergies Allergy/AdvReac Type Severity Reaction Status Date / Time Sulfa (Sulfonamide Allergy Mild Hives Verified 06/09/19 19:48 Antibiotics) Medications Home Medications Medication Instructions Recorded Confirmed Last Taken aspirin [Aspir-81] 81 mg PO DAILY PRN 06/09/19 06/09/19 Unknown bisacodyl 10 mg PO DAILY PRN 06/09/19 06/09/19 Unknown fluticasone propionate [Flonase 2 spray INTRANASAL DAILY PRN 06/09/19 06/09/19 Unknown Allergy Relief] hydroxyurea [Hydrea] 1,000 mg PO MOWEFR 06/09/19 06/09/19 Unknown hydroxyurea [Hydrea] 500 mg PO SUTUTHSA 06/09/19 06/09/19 Unknown polyethylene glycol 3350 [Miralax] 17 g PO DAILY PRN 06/09/19 06/09/19 Unknown spironolactone [Aldactone] 25 mg PO DAILY 06/09/19 06/09/19 Unknown Active Medications Generic Name Dose Route Start Last Admin Trade Name Freq PRN Reason Stop Dose Admin Hydromorphone HCl 0.5 mg 06/09/19 20:59 06/10/19 10:32 Dilaudid IV 06/23/19 20:58 0.5 mg Q3H PRN Administration Pain Hydroxyurea 1,000 mg 06/10/19 09:00 06/10/19 08:38 Hydrea PO 07/10/19 08:59 1,000 mg MoWeFr@0900 HANDY Administration Sodium Chloride 1,000 mls @ 80 mls/hr 06/09/19 20:59 06/10/19 13:36 Nss 1000ml IV 07/09/19 20:58 0 mls/hr .[id number] HANDY Infusion Ondansetron HCl 4 mg 06/09/19 20:59 06/10/19 10:32 Zofran IV 07/09/19 20:58 4 mg Q6H PRN Administration Nausea Spironolactone 25 mg 06/10/19 09:00 06/10/19 08:39 Aldactone PO 07/10/19 08:59 25 mg DAILY HANDY Administration NPO Date Last Intake of Fluids: 06/09/19 Time Last Intake of Fluids: 16:00 Date Last Intake of Solids: 06/09/19 Time Last Intake of Solids: 12:00 Past Medical History Medical History Displaced fracture of right femoral neck Hiatal hernia Hyperlipidemia Meniere disease Osteoarthritis Vertigo (Chronic) Exercise / Class Metabolic Activity II 4-5 Yardwork/Stairs/Walk up hill Past Surgical History Surgical History History of appendectomy History of cataract surgery History of colonoscopy History of open reduction and internal fixation (ORIF) procedure rt/left arm (s/p fx after falling) Past Anesthesia History No Hx of Anesthesia Complications and No Family Hx of Anesthesia Complications History of PONV No Hx of PONV and No Hx of Motion Sickness Social History Smoking Status: Never smoker Do You Dip or Chew Tobacco: No Hx Alcohol Use: Yes Alcohol type: wine alcohol intake frequency: holidays/special occasions only Hx Substance Use: No substance use type: does not use Physical Exam Vital Signs Last Vital Signs Temp 37.3 C 06/10/19 14:01 Pulse 76 06/10/19 14:01 Resp 16 06/10/19 14:01 BP 123/60 06/10/19 14:01 Pulse Ox 99 06/10/19 14:01 Testing Laboratory Results 06/10/19 05:21 06/10/19 05:21 PT 10.5 Seconds (9.0-12.0) 06/09/19 19:07 INR 1.0 (0.9-1.1) 06/09/19 19:07 APTT 25.7 Seconds (21.0-31.0) 06/09/19 19:07 Urine Color Yellow 06/09/19 20:00 Urine Appearance Clear (Clear) 06/09/19 20:00 Urine pH 7.0 (4.5-7.5) 06/09/19 20:00 Ur Specific [place] 1.013 (1.000-1.030) 06/09/19 20:00 Urine Protein Negative (Negative) 06/09/19 20:00 Urine Glucose (UA) Negative (Negative) 06/09/19 20:00 Urine Ketones Negative (Negative) 06/09/19 20:00 Urine Nitrite Negative (Negative) 06/09/19 20:00 Ur Leukocyte Esterase Negative (Negative) 06/09/19 20:00 Blood Type O Positive 06/09/19 19:04 Antibody Screen NEGATIVE 06/09/19 19:04 Electrocardiogram Date: 06/09/19 Findings: + NSR @ (82) Normal sinus rhythm Normal ECG When compared with ECG of 21-AUG-2014 11:54, Non- specific change in ST segment in Inferior leads Non-specific change in ST segment in Lateral leads T wave inversion no longer evident in Inferior leads
[2019-06-10] MEDS ORDERED: BUPIVACAINE 0.5 % 5 MG/1 ML PF 10ML VIAL ONE (15:17)
[2019-06-10] MEDS ORDERED: CEFAZOLIN 250 MG/ML 1 GM VIAL ONE (15:35)
[2019-06-10] MEDS ORDERED: fentaNYL citrate 100 MCG/2 ML VIAL IV PRN (15:40)
[2019-06-10] MEDS ORDERED: ATROPINE SULFATE 0.1 MG/ML 10ML SYR IV PRN (15:40)
[2019-06-10] MEDS ORDERED: ONDANSETRON INJ 2 MG/ML 2 ML VIAL IV PRN (15:40)
[2019-06-10] MEDS ORDERED: ePHEDrine sulfate 50 MG/ML AMP IV PRN (15:40)
--- NOTE | 2019-06-10 15:44 | Hospitalist Progress Note ---
Date of Service June 10, 2019 Assessment & Plan (1) Displaced fracture of right femoral neck: Status post mechanical fall with fracture of the right femoral neck Was not able to get up from floor following the fall Appreciate orthopedic evaluation and recommendation Will have surgical correction this afternoon No medical contraindication for proposed surgery Present on Admission?: Yes (2) Fall: Status post mechanical fall (3) Meniere disease: Has Mnire's disease and complains today of vertigo with sharp neck movement and cannot lie flat due to dizziness Likely contributed the fall (4) CKD (chronic kidney disease) stage 3, GFR 30-59 ml/min: Creatinine remains stable at 1.06 as of 06/09 DVT prophylaxis As per Orth Subjective 06/10 The patient was seen and examined in medical floor in presence of the family members She is a status post mechanical fall with fracture of the right hip She denies any other significant symptoms and her cardiac status seems to be stable She will have surgical repair of the hip this afternoon Review of Systems Review of Systems: All systems reviewed and are unremarkable except as noted below Physical Exam Physical Exam: No apparent distress at rest Constitutional: well developed, well nourished and + ill appearing; no acute distress Eyes: PERRL, conjunctivae normal, anicteric sclerae ENMT: external ear and nose normal, oropharynx normal Neck: trachea midline, no thyromegaly Respiratory: normal respiratory effort; no respiratory distress Auscultation: lungs clear to auscultation bilaterally Cardiovascular: Rate/Rhythm: regular rate and regular rhythm Heart Sounds: no murmur Gastrointestinal (Abdomen): Inspection/Auscultation: abdomen normal to inspection and normal bowel sounds Musculoskeletal: No acute arthritis in any joints but right hip movement is extremely painful Neurologic: Alert, awake and oriented x3 Results & Data Vital Signs (Past 12 Hours) Vital Signs Temp Pulse Resp BP Pulse Ox 06/10/19 14:01 37.3 C 76 16 123/60 99 06/10/19 07:13 36.9 C 68 16 108/66 97 Laboratory Results Short CBC 06/09/19 06/10/19 Range/Units 19:07 05:21 WBC 6.22 4.68 L (4.8-10.8) K/uL Hgb 12.3 10.9 L (12.0-16.0) g/dL Hct 37.0 32.4 L (37-47) % Plt Count 201 169 (130-400) K/uL BMP 06/09/19 06/10/19 19:07 05:21 Sodium 137 138 Potassium 4.2 4.5 Chloride 107 110 H Carbon Dioxide 26 23 BUN 29 H 24 H Creatinine 1.06 0.96 Glucose 98 115 H Calcium 8.6 8.0 L Urine 06/09/19 Range/Units 20:00 Urine Color Yellow Urine Appearance Clear (Clear) Urine pH 7.0 (4.5-7.5) Ur Specific [place] 1.013 (1.000-1.030) Urine Protein Negative (Negative) Urine Glucose (UA) Negative (Negative) Medications Administered Current Inpatient Medications Acetaminophen (Tylenol) 650 mg PO Q4H PRN PRN Reason: pain/fever Stop: 07/09/19 20:58 Bisacodyl (Dulcolax) 10 mg PO DAILY PRN PRN Reason: CONSTIPATION Stop: 07/09/19 21:20 Fluticasone Propionate (Flonase) 2 sprays NA DAILY PRN PRN Reason: Nasal Congestion Stop: 07/09/19 20:58 Hydromorphone HCl (Dilaudid) 0.5 mg IV Q3H PRN PRN Reason: Pain Stop: 06/23/19 20:58 Last Admin: 06/10/19 10:32 Dose: 0.5 mg Documented by: Hydroxyurea (Hydrea) 500 mg PO SuTuThSa@0900 [facility] Stop: 07/11/19 08:59 Hydroxyurea (Hydrea) 1,000 mg PO MoWeFr@0900 [facility] Stop: 07/10/19 08:59 Last Admin: 06/10/19 08:38 Dose: 1,000 mg Documented by: Sodium Chloride (Nss 1000ml) 1,000 mls @ 80 mls/hr IV .[id number] [facility] Stop: 07/09/19 20:58 Last Infusion: 06/10/19 13:36 Dose: 0 mls/hr Documented by: Ondansetron HCl (Zofran) 4 mg IV Q6H PRN PRN Reason: Nausea Stop: 07/09/19 20:58 Last Admin: 06/10/19 10:32 Dose: 4 mg Documented by: Polyethylene Glycol (Miralax Powder Packet) 17 gm PO DAILY PRN PRN Reason: Constipation Stop: 07/09/19 20:58 Spironolactone (Aldactone) 25 mg PO DAILY HANDY Stop: 07/10/19 08:59 Last Admin: 06/10/19 08:39 Dose: 25 mg Documented by: (1) Fall Encounter type: initial encounter Qualified Code(s): W19.XXXA - Unspecified fall, initial encounter
[2019-06-10] MEDS ORDERED: ePHEDrine sulfate 50 MG/ML AMP ONE (16:20)
[2019-06-10] MEDS ORDERED: PHENYLEPHRINE 100MCG/ML 5ML SYR ONE (16:20)
--- NOTE | 2019-06-10 16:34 | Operative Report ---
PG Post Operative Report Pre & Post Diagnosis Operation Date: 06/10/19 08:20 Pre-Op Diagnosis: Right femoral neck fracture Post-Op Diagnosis: Right femoral neck fracture I identified the patient and participated in the time-out.: Yes Procedure Operation Date: 06/10/19 08:20 Actual Procedures p Right Anterior Hip Hemiarthroplasty(Right) - Reji Stockton DO Surgeon Reji Stockton DO Police Lieutenant Patrol Reji Garzon PAC Estimated Blood Loss 250 Findings Consistent with Post-Op Diagnosis Specimens Right femoral head Complications none Disposition Disposition: Recovery Room Indications Pleasant 84-year-old female who fell yesterday onto her right hip. X-rays and clinical examination were diagnostic for a femoral neck fracture of her right hip. Orthopedics was consulted. After discussions with her and her daughter, they elected proceed with a right hip hemiarthroplasty. Description of Procedure Implants used: I used a Biomet size 10 Taperloc high offset femoral stem with a 28+0 head and a 42 mm shell no cement was used during the case. On June 10, 2019 she was brought down to the hospital room to the preoperative holding area. The operative extremity was identified and signed. She was given a preoperative antibiotic. She was taken back the operating room and a spinal anesthetic was placed. She was then laid on the table in the supine position and given basic sedation. The right hip was then brought out to a Purist leg positioner. The right hip was then prepped and draped in sterile fashion. A timeout was done. The patient and the operative extremity was properly identified. An anterior approach was used. Dissection was taken down through the fascia. The tensor was retracted laterally and the rectus was retracted medially. The capsule was then incised and tagged for later repair. The circumflex vessels were ligated. The femoral neck was exposed. The femoral neck was then resected. The neck was removed and then the head was removed. The acetabulum was exposed. Time was spent doing a slight labral release. A size 42 mm head seem to be the best fit. The proximal femur was then exposed. Sequential broaching up to a size 10 broach was used. A high offset neck and a 42 mm bipolar shell was then impacted into place. Hip was reduced. Fluoroscopic images showed anatomic alignment. The hip was then dislocated. The final size 10 high offset Taperloc stem was then impacted in the place. A 28+0 head was then impacted into place followed by 42 mm shell. The hip was then reduced. Final fluoroscopic images showed anatomic alignment. The wound was then irrigated. The capsule was then closed with #1 Vicryl suture. The fascia was closed with #1 PDS suture. Skin was closed with 3-0 Vicryl and sean. A Ivette VAC dressing was placed. She was then taken to the postanesthesia care unit in stable condition. She tolerated the procedure well. I attest to the content of the Intraoperative Record and any orders documented therein. Any exceptions are noted below.
--- NOTE | 2019-06-10 16:39 | Fluoroscopy Report ---
FL hip RT 1V HISTORY: 84 years-old Female RT ANTERIOR HIP right hip total joint arthroplasty COMPARISON: Right hip radiographs 06/09/2019 TECHNIQUE: One spot fluoroscopic image of the right hip was obtained utilizing 27.0 seconds fluorosco py time FINDINGS: Satisfactory alignment of the right hip total joint arthroplasty. No acute fracture, malalignment or retained foreign body. Expected postsurgical soft tissue swelling and deep tissue air with surgical d rainage catheter. IMPRESSION: Fluoroscopic assistance as above. Please see operative report for further details. ACT 112: Negative or not required by law. The above report was generated using voice recognition software. It may contain grammatical, syntax o r spelling errors. Electronically signed by: Mervin Rhoadse M.D. 06/10/2019 4:38 PM
--- NOTE | 2019-06-10 17:26 | Anesthesiology Progress Note ---
Date of Service June 10, 2019 Anesthesia Post Procedure Vital Signs Vital Signs: Temp Pulse Pulse Pulse Pulse Resp BP 06/10/19 17:20 36.4 C L 72 21 06/10/19 17:10 70 16 06/10/19 17:00 71 12 06/10/19 16:52 37.3 C 84 18 06/10/19 14:01 37.3 C 76 16 06/10/19 07:13 36.9 C 68 16 06/09/19 23:37 36.5 C 74 16 06/09/19 20:40 36.2 C L 76 14 06/09/19 20:01 73 22 06/09/19 20:00 84 39 H 165/74 H 06/09/19 19:57 78 21 06/09/19 19:49 76 23 151/63 H 06/09/19 17:37 94 H 20 143/65 H BP BP Pulse Ox 06/10/19 17:20 103/45 L 99 06/10/19 17:10 104/51 L 99 06/10/19 17:00 110/61 100 06/10/19 16:52 110/58 L 100 06/10/19 14:01 123/60 99 06/10/19 07:13 108/66 97 06/09/19 23:37 114/66 98 06/09/19 20:40 114/70 99 06/09/19 20:01 97 06/09/19 20:00 96 06/09/19 19:57 97 06/09/19 19:49 97 06/09/19 17:37 96 Pain Intensity Right Hip: Pain Intensity: 0 Transfer of Care Handoff Completed per policy Notes Mental Status: alert / awake / arousable Patient Amnestic to Procedure: Yes Nausea / Vomiting: adequately controlled Pain: adequately controlled Airway Patency, RR, SpO2: stable & adequate BP & HR: stable & adequate Hydration State: stable & adequate Neuraxial Anesthesia: was administered and sensory block is resolving Anesthetic Complications: no major complications apparent and Pt Satisfied with anesthetic care
--- NOTE | 2019-06-10 17:26 | XRay Report ---
XR hip RT min 2V HISTORY: 84 years-old Female Post-Operative implant position right hip total joint arthroplasty. COMPARISON: Right hip radiographs 06/09/2019 TECHNIQUE: 2 views of the right hip FINDINGS: Satisfactory alignment of the right hip total joint arthroplasty. Lateral skin sean are noted in a ddition to expected postsurgical soft tissue swelling and deep tissue air with surgical drainage cath eter. Arterial calcifications are noted. No acute fracture, malalignment or opaque foreign body. IMPRESSION: Satisfactory alignment of the right hip total joint arthroplasty. ACT 112: Negative or not required by law. The above report was generated using voice recognition software. It may contain grammatical, syntax o r spelling errors. Electronically signed by: Mervin Rhoades M.D. 06/10/2019 5:24 PM
[2019-06-10] MEDS ORDERED: NALOXONE HCL 0.4 MG/1 ML VIAL/CARP IV PRN (17:52)
[2019-06-10] MEDS: ASPIRIN 81 MG ECTAB PO SCH (20:50)
[2019-06-11] MEDS: SODIUM CHLORIDE 0.9% 1000ML 1,000 ML IV SCH (01:26)
[2019-06-11 05:56] LABS: Eosinophils # (auto) 0.03 K/uL (0-0.5); Eosinophils % (auto) 0.9 %; Hematocrit (blood only) 28.6 % (37-47); Hemoglobin 9.7 g/dL (12.0-16.0); Lymphocytes # (auto) 0.45 K/uL (1.2-3.4); Lymphocytes % (auto) 13.4 %; Mean Corpuscular Hemoglobin 33.6 pg (25-34); Mean Corpuscular Hgb Conc 33.9 g/dL (32-36); Mean Platelet Volume 9.2 fL (7.4-10.4); Monocytes # (auto) 0.14 K/uL (0.11-0.59); Monocytes % (auto) 4.2 %; Neutrophils # (auto) 2.73 K/uL (1.4-6.5); Neutrophils % (auto) 81.5 %; Platelet Count 164 K/uL (130-400); RDW Coefficient of Variation 17.5 % (11.5-14.5); RDW Standard Deviation 60.2 fL (36.4-46.3); Red Blood Count 2.89 M/uL (4.2-5.4); White Blood Count 3.35 K/uL (4.8-10.8)
[2019-06-11 06:29] LABS: BUN Creatinine Ratio 19.7 (10-20); Calcium 8.3 mg/dl (8.5-10.1); Creatinine Clr Calc Pharmacy 32.5 ml/min; Est GFR (African American) 59.5; Est GFR (Non-African American) 51.3; Potassium 4.2 mmol/L (3.5-5.1)
--- NOTE | 2019-06-11 06:37 | Orthopedic Progress Note ---
Date of Service June 11, 2019 Assessment & Plan (1) Closed right hip fracture: (2) History of right hip hemiarthroplasty: Overall she is doing very well. She is not having much pain in the right hip. She will be seen by physical therapy this morning for ambulation. She is weightbearing as tolerated on the right hip. The Ivette VAC dressing will stay in place for 7 days. She is orthopedically stable for discharge when medically ready. Full orthopedic discharge instructions were placed in the discharge summary. She can follow-up in my office in 2 weeks for staple removal. My office phone number is [phone]. Present on Admission?: No Subjective Natasha was seen and examined at bedside this morning. Overall she is doing very well. She is not having much pain in the right hip. She has not been ambulating yet. She will be seen by physical therapy today. She has no complaints. Physical Exam Musculoskeletal: On physical examination of the right hip, the Ivette VAC dressing is to suction. Her leg lengths are equal. She has active dorsiflexion and plantarflexion of the right ankle. Results & Data Vital Signs (Past 12 Hours) Vital Signs Temp Pulse Resp BP BP Pulse Ox 06/11/19 03:25 37.3 C 84 18 109/65 93 06/10/19 23:10 37.2 C 86 16 117/71 93 06/10/19 20:50 36.8 C 88 16 106/62 91 06/10/19 19:48 36.8 C 85 16 100/59 L 90 06/10/19 18:47 36.9 C 85 16 110/69 93 Laboratory Results H & H 06/09/19 06/10/19 06/11/19 Range/Units 19:07 05:21 05:32 Hgb 12.3 10.9 L 9.7 L (12.0-16.0) g/dL Hct 37.0 32.4 L 28.6 L (37-47) % Coagulation 06/09/19 Range/Units 19:07 INR 1.0 (0.9-1.1) Diagnostic Findings Postoperative x-rays of the right hip show the prosthesis to be in anatomic alignment without any evidence of fracture, dislocation, or loosening. PG Care Time/CCT Total # of Minutes Spent Total Time Spent with Patient: Total time spent is greater than 50% in coordinat ion of care (as documented) at patient's floor/unit and/or counseling patient: (1) Closed right hip fracture Encounter type: initial encounter Qualified Code(s): S72.001A - Fracture of unspecified part of neck of right femur, initial encounter for closed fracture
[2019-06-11] MEDS: SPIRONOLACTONE 25 MG TAB PO SCH (07:53)
[2019-06-11] MEDS: HYDROXYUREA 500 MG CAP PO SCH (07:53)
[2019-06-11] MEDS: ASPIRIN 81 MG ECTAB PO SCH ×2 (07:53→20:59)
--- NOTE | 2019-06-11 15:11 | Hospitalist Progress Note ---
Date of Service June 11, 2019 Assessment & Plan (1) Displaced fracture of right femoral neck: Status post mechanical fall with fracture of the right femoral neck Was not able to get up from floor following the fall Appreciate orthopedic evaluation and recommendation No medical contraindication for proposed surgery Status post right hip hemiarthroplasty on 06/10 Has been doing reasonably well following surgery Has been getting physical therapy and awaiting placement Medically stable (2) Fall: Status post mechanical fall (3) Meniere disease: Has Mnire's disease and complains today of vertigo with sharp neck movement and cannot lie flat due to dizziness Likely contributed the fall (4) CKD (chronic kidney disease) stage 3, GFR 30-59 ml/min: Creatinine remains stable at 1.06 as of 06/09 DVT prophylaxis As per Orth Subjective 06/10 The patient was seen and examined in medical floor in presence of the family mem bers She is a status post mechanical fall with fracture of the right hip She denies any other significant symptoms and her cardiac status seems to be stable She will have surgical repair of the hip this afternoon 06/11 The patient was seen and examined in medical floor She has been feeling a lot better and denies any significant pain in the right hip Her dizziness is stable Review of Systems Review of Systems: All systems reviewed and are unremarkable except as noted below Musculoskeletal: Minimal pain involving the right lower extremity Physical Exam Physical Exam: No apparent distress at rest and lying in bed comfortably Constitutional: well developed and well nourished; no acute distress and not ill appearing Eyes: PERRL, conjunctivae normal, anicteric sclerae ENMT: external ear and nose normal, oropharynx normal Neck: trachea midline, no thyromegaly Respiratory: normal respiratory effort; no respiratory distress Auscultation: lungs clear to auscultation bilaterally Cardiovascular: Rate/Rhythm: regular rate and regular rhythm Heart Sounds: no murmur Gastrointestinal (Abdomen): Inspection/Auscultation: abdomen normal to inspection and normal bowel sounds Musculoskeletal: Pain on movement of the right lower extremity Results & Data Vital Signs (Past 12 Hours) Vital Signs Temp Pulse Pulse Resp BP BP Pulse Ox 06/11/19 07:22 36.9 C 78 16 112/68 94 06/11/19 03:25 37.3 C 84 18 109/65 93 Laboratory Results Short CBC 06/11/19 Range/Units 05:32 WBC 3.35 L (4.8-10.8) K/uL Hgb 9.7 L (12.0-16.0) g/dL Hct 28.6 L (37-47) % Plt Count 164 (130-400) K/uL [facility] 06/11/19 05:32 Sodium 137 Potassium 4.2 Chloride 108 H Carbon Dioxide 26 BUN 20 H Creatinine 1.00 Glucose 118 H Calcium 8.3 L Medications Administered Current Inpatient Medications Acetaminophen (Tylenol) 650 mg PO Q4H PRN PRN Reason: pain/fever Stop: 07/09/19 20:58 Aspirin (Ecotrin Ectab) 81 mg PO BID [facility] Stop: 07/10/19 20:59 Last Admin: 06/11/19 07:53 Dose: 81 mg Documented by: Bisacodyl (Dulcolax) 10 mg PO DAILY PRN PRN Reason: CONSTIPATION Stop: 07/09/19 21:20 Fluticasone Propionate (Flonase) 2 sprays NA DAILY PRN PRN Reason: Nasal Congestion Stop: 07/09/19 20:58 Hydromorphone HCl (Dilaudid) 0.5 mg IV Q3H PRN PRN Reason: Pain Stop: 06/23/19 20:58 Last Admin: 06/10/19 10:32 Dose: 0.5 mg Documented by: Hydroxyurea (Hydrea) 500 mg PO SuTuThSa@0900 [facility] Stop: 07/11/19 08:59 Last Admin: 06/11/19 07:53 Dose: 500 mg Documented by: Hydroxyurea (Hydrea) 1,000 mg PO MoWeFr@0900 [facility] Stop: 07/10/19 08:59 Last Admin: 06/10/19 08:38 Dose: 1,000 mg Documented by: Naloxone HCl (Narcan) 0.1 mg IV UD PRN PRN Reason: Opioid Overdose Stop: 07/10/19 17:51 Ondansetron HCl (Zofran) 4 mg IV Q6H PRN PRN Reason: Nausea Stop: 07/09/19 20:58 Last Admin: 06/10/19 10:32 Dose: 4 mg Documented by: Polyethylene Glycol (Miralax Powder Packet) 17 gm PO DAILY PRN PRN Reason: Constipation Stop: 07/09/19 20:58 Spironolactone (Aldactone) 25 mg PO DAILY HANDY Stop: 07/10/19 08:59 Last Admin: 06/11/19 07:53 Dose: 25 mg Documented by: (1) Fall Encounter type: initial encounter Qualified Code(s): W19.XXXA - Unspecified fall, initial encounter
--- NOTE | 2019-06-11 19:11 | Anesthesiology Progress Note ---
Date of Service June 11, 2019 Anesthesia Post Procedure Vital Signs Vital Signs: Temp Pulse Pulse Resp BP BP Pulse Ox 06/11/19 15:37 36.9 C 84 18 101/59 L 94 06/11/19 07:22 36.9 C 78 16 112/68 94 06/11/19 03:25 37.3 C 84 18 109/65 93 06/10/19 23:10 37.2 C 86 16 117/71 93 06/10/19 20:50 36.8 C 88 16 106/62 91 06/10/19 19:48 36.8 C 85 16 100/59 L 90 Pain Intensity Right Hip: Pain Intensity: 8 Notes Mental Status: alert / awake / arousable and participated in evaluation Patient Amnestic to Procedure: Yes Nausea / Vomiting: adequately controlled Pain: adequately controlled Airway Patency, RR, SpO2: stable & adequate BP & HR: stable & adequate Hydration State: stable & adequate Neuraxial Anesthesia: was administered and sensory block resolved Anesthetic Complications: no major complications apparent and Pt Satisfied with anesthetic care
[2019-06-11] MEDS: ACETAMINOPHEN 325 MG TAB PO PRN (21:05)
[2019-06-12] MEDS: ACETAMINOPHEN 325 MG TAB PO PRN ×2 (05:49→15:28)
[2019-06-12] MEDS: SPIRONOLACTONE 25 MG TAB PO SCH (07:26)
[2019-06-12] MEDS: HYDROXYUREA 500 MG CAP PO SCH (07:26)
[2019-06-12] MEDS: ASPIRIN 81 MG ECTAB PO SCH ×2 (07:26→20:39)
--- NOTE | 2019-06-12 13:02 | Orthopedic Progress Note ---
Date of Service June 12, 2019 Assessment & Plan (1) Closed right hip fracture: (2) History of right hip hemiarthroplasty: Making uncomplicated progress on postop day 2 and is overall doing very well. Continue PT/OT until next destination can be determined for disposition. She is weightbearing as tolerated on the right hip. The Ivette VAC dressing will stay in place for 7 days. She is orthopedically stable for discharge when medically ready. Full orthopedic discharge instructions were placed in the discharge summary. She can follow-up with Dr. Reji Stockton in 2 weeks for staple removal. [facility] orthopedic office phone number is [phone]. Present on Admission?: No Subjective Natasha reports that she is doing quite well. She is pleased with her progress with walking in the [place] with physical therapy. She denies significant pain. Review of Systems Review of Systems: All systems reviewed & are unremarkable except as noted in HPI & below Physical Exam Physical Exam: She is awake and alert and sitting with the head of bed elevated to 45 degrees. She is oriented x3. She is pleasant and conversant Right lower extremity: The Ivette wound VAC dressing is intact and functional. She has positive dorsiflexion/plantarflexion/EHL activity. She is distally neurovascular intact. Results & Data Vital Signs (Past 12 Hours) Vital Signs Temp Pulse Resp BP Pulse Ox 06/12/19 07:35 36.9 C 80 16 105/66 93 PG Care Time/CCT Total # of Minutes Spent Total Time Spent with Patient: Total time spent is greater than 50% in coordination of care (as documented) at patient's floor/unit and/or counseling patient: (1) Closed right hip fracture Encounter type: initial encounter Qualified Code(s): S72.001A - Fracture of unspecified part of neck of right femur, initial encounter for closed fracture
--- NOTE | 2019-06-12 13:41 | Hospitalist Progress Note ---
Date of Service June 12, 2019 Assessment & Plan (1) Displaced fracture of right femoral neck: Status post mechanical fall with fracture of the right femoral neck Was not able to get up from floor following the fall Appreciate orthopedic evaluation and recommendation No medical contraindication for proposed surgery Status post right hip hemiarthroplasty on 06/10 Has been doing reasonably well following surgery Has been getting physical therapy and awaiting placement Medically stable Awaiting placement Will not prescribe any narcotics pain medication orally (2) Fall: Status post mechanical fall (3) Meniere disease: Has Mnire's disease and complains today of vertigo with sharp neck movement and cannot lie flat due to dizziness Likely contributed the fall (4) CKD (chronic kidney disease) stage 3, GFR 30-59 ml/min: Creatinine remains stable at 1.06 as of 06/09 DVT prophylaxis As per Orth Likely be discharged tomorrow to rehab Discussed with the daughter and the patient Subjective 06/10 The patient was seen and examined in medical floor in presence of the family members She is a status post mechanical fall with fracture of the right hip She denies any other significant symptoms and her cardiac status seems to be stable She will have surgical repair of the hip this afternoon 06/11 The patient was seen and examined in medical floor She has been feeling a lot better and denies any significant pain in the right hip Her dizziness is stable 06/12 Patient is seen and examined in medical floor She denies any complaints and does not like to go to rehab Minimal pain involving the right hip Review of Systems Review of Systems: All systems reviewed and are unremarkable except as noted below Musculoskeletal: Minimal pain involving the right lower extremity Physical Exam Physical Exam: No apparent distress at rest. Looked anxious Constitutional: well developed and well nourished; no acute distress and not ill appearing Eyes: PERRL, conjunctivae normal, anicteric sclerae ENMT: external ear and nose normal, oropharynx normal Neck: trachea midline, no thyromegaly Respiratory: normal respiratory effort; no respiratory distress Auscultation: lungs clear to auscultation bilaterally Cardiovascular: Rate/Rhythm: regular rate and regular rhythm Heart Sounds: no murmur Gastrointestinal (Abdomen): Inspection/Auscultation: abdomen normal to inspection and normal bowel sounds Musculoskeletal: Pain in the right hip on movement Results & Data Vital Signs (Past 12 Hours) Vital Signs Temp Pulse Resp BP Pulse Ox 06/12/19 07:35 36.9 C 80 16 105/66 93 Medications Administered Current Inpatient Medications Acetaminophen (Tylenol) 650 mg PO Q4H PRN PRN Reason: pain/fever Stop: 07/09/19 20:58 Last Admin: 06/12/19 05:49 Dose: 650 mg Documented by: Aspirin (Ecotrin Ectab) 81 mg PO BID [facility] Stop: 07/10/19 20:59 Last Admin: 06/12/19 07:26 Dose: 81 mg Documented by: Bisacodyl (Dulcolax) 10 mg PO DAILY PRN PRN Reason: CONSTIPATION Stop: 07/09/19 21:20 Fluticasone Propionate (Flonase) 2 sprays NA DAILY PRN PRN Reason: Nasal Congestion Stop: 07/09/19 20:58 Hydromorphone HCl (Dilaudid) 0.5 mg IV Q3H PRN PRN Reason: Pain Stop: 06/23/19 20:58 Last Admin: 06/10/19 10:32 Dose: 0.5 mg Documented by: Hydroxyurea (Hydrea) 500 mg PO SuTuThSa@0900 [facility] Stop: 07/11/19 08:59 Last Admin: 06/12/19 07:26 Dose: 500 mg Documented by: Hydroxyurea (Hydrea) 1,000 mg PO MoWeFr@0900 [facility] Stop: 07/10/19 08:59 Last Admin: 06/10/19 08:38 Dose: 1,000 mg Documented by: Naloxone HCl (Narcan) 0.1 mg IV UD PRN PRN Reason: Opioid Overdose Stop: 07/10/19 17:51 Ondansetron HCl (Zofran) 4 mg IV Q6H PRN PRN Reason: Nausea Stop: 07/09/19 20:58 Last Admin: 06/10/19 10:32 Dose: 4 mg Documented by: Polyethylene Glycol (Miralax Powder Packet) 17 gm PO DAILY PRN PRN Reason: Constipation Stop: 07/09/19 20:58 Spironolactone (Aldactone) 25 mg PO DAILY [facility] Stop: 07/10/19 08:59 Last Admin: 06/12/19 07:26 Dose: 25 mg Documented by: (1) Fall Encounter type: initial encounter Qualified Code(s): W19.XXXA - Unspecified fall, initial encounter
--- NOTE | 2019-06-13 07:13 | Orthopedic Progress Note ---
Date of Service June 13, 2019 Assessment & Plan (1) Closed right hip fracture: (2) History of right hip hemiarthroplasty: Making uncomplicated progress on postop day 3 and is overall doing very well. Continue PT/OT until next destination can be determined for disposition. She is weightbearing as tolerated on the right hip. The Ivette VAC dressing will stay in place for 7 days. She is orthopedically stable for discharge when medically ready. Full orthopedic discharge instructions were placed in the discharge summary. She can follow-up with Dr. Reji Stockton in 2 weeks for staple removal. [facility] orthopedic office phone number is [phone]. Present on Admission?: No Subjective She reports minimal pain and is encouraged by the progress. She expects further information on whether should be able to go home or to inpatient rehab today based on her performance with physical therapy. No other issues Physical Exam Physical Exam: She is sleeping on arrival but wakes easily. She is oriented x3. She is pleasant and conversant Right lower extremity: The Ivette wound VAC dressing is intact and functional. She has positive dorsiflexion/plantarflexion/EHL activity. She is distally neurovascular intact. Results & Data Vital Signs (Past 12 Hours) Vital Signs Temp Pulse Resp BP Pulse Ox 06/13/19 06:57 36.9 C 84 16 103/69 96 06/12/19 23:02 36.8 C 83 16 132/74 94 PG Care Time/CCT Total # of Minutes Spent Total Time Spent with Patient: Total time spent is greater than 50% in coordination of care (as documented) at patient's floor/unit and/or counseling patient: (1) Closed right hip fracture Encounter type: initial encounter Qualified Code(s): S72.001A - Fracture of unspecified part of neck of right femur, initial encounter for closed fracture
[2019-06-13] MEDS: SPIRONOLACTONE 25 MG TAB PO SCH (07:32)
[2019-06-13] MEDS: HYDROXYUREA 500 MG CAP PO SCH (07:32)
[2019-06-13] MEDS: ASPIRIN 81 MG ECTAB PO SCH (07:32)
[2019-06-13 07:51] LABS: Eosinophils # (auto) 0.08 K/uL (0-0.5); Eosinophils % (auto) 2.5 %; Hematocrit (blood only) 25.6 % (37-47); Hemoglobin 8.6 g/dL (12.0-16.0); Immature Granulocytes # (auto) 0.01 K/uL (0.00-0.02); Immature Granulocytes % (auto) 0.3 %; Lymphocytes # (auto) 0.93 K/uL (1.2-3.4); Lymphocytes % (auto) 28.6 %; Mean Corpuscular Hemoglobin 33.5 pg (25-34); Mean Corpuscular Hgb Conc 33.6 g/dL (32-36); Mean Corpuscular Volume 99.6 fL (80-100); Mean Platelet Volume 9.6 fL (7.4-10.4); Monocytes # (auto) 0.15 K/uL (0.11-0.59); Monocytes % (auto) 4.6 %; Neutrophils # (auto) 2.08 K/uL (1.4-6.5); Platelet Count 202 K/uL (130-400); RDW Standard Deviation 62.7 fL (36.4-46.3); Red Blood Count 2.57 M/uL (4.2-5.4); White Blood Count 3.25 K/uL (4.8-10.8)
[2019-06-13 08:08] LABS: BUN Creatinine Ratio 21.4 (10-20); Calcium 8.3 mg/dl (8.5-10.1); Creatinine Clr Calc Pharmacy 33.2 ml/min; Est GFR (Non-African American) 52.6; Potassium 3.8 mmol/L (3.5-5.1)
--- NOTE | 2019-06-13 12:21 | Hospitalist Progress Note ---
Date of Service June 13, 2019 Assessment & Plan (1) Displaced fracture of right femoral neck: Status post mechanical fall with fracture of the right femoral neck Was not able to get up from floor following the fall Appreciate orthopedic evaluation and recommendation No medical contraindication for proposed surgery Status post right hip hemiarthroplasty on 06/10 Has been doing reasonably well following surgery Has been getting physical therapy and awaiting placement Medically stable Awaiting placement Will not prescribe any narcotics pain medication orally Has been accepted to rehab and will be transferred this afternoon (2) Fall: Status post mechanical fall (3) Meniere disease: Has Mnire's disease and complains today of vertigo with sharp neck movement and cannot lie flat due to dizziness Likely contributed the fall No acute symptoms at rest (4) CKD (chronic kidney disease) stage 3, GFR 30-59 ml/min: Creatinine remains stable at 1.06 as of 06/09 DVT prophylaxis As per Orth Likely be discharged tomorrow to rehab Discussed with the daughter and the patient Subjective 06/10 The patient was seen and examined in medical floor in presence of the family members She is a status post mechanical fall with fracture of the right hip She denies any other significant symptoms and her cardiac status seems to be stable She will have surgical repair of the hip this afternoon 06/11 The patient was seen and examined in medical floor She has been feeling a lot better and denies any significant pain in the right hip Her dizziness is stable 06/12 Patient is seen and examined in medical floor She denies any complaints and does not like to go to rehab Minimal pain involving the right hip 06/13 Patient was seen and examined in medical floor She has been feeling a lot better and is out of bed on a chair She gets physical therapy without much pain Will be discharged to rehab this afternoon Review of Systems Review of Systems: All systems reviewed and are unremarkable except as noted below Musculoskeletal: Minimal pain involving the right lower extremity Physical Exam Physical Exam: No apparent distress at rest and sitting on a chair Constitutional: well developed and well nourished; no acute distress and not ill appearing Eyes: PERRL, conjunctivae normal, anicteric sclerae ENMT: external ear and nose normal, oropharynx normal Neck: trachea midline, no thyromegaly Respiratory: normal respiratory effort; no respiratory distress Auscultation: lungs clear to auscultation bilaterally Cardiovascular: Rate/Rhythm: regular rate and regular rhythm Heart Sounds: no murmur Gastrointestinal (Abdomen): Inspection/Auscultation: abdomen normal to inspection and normal bowel sounds Musculoskeletal: Minimal pain on movement in right hip Lymphatic: no cervical or axillary lymphadenopathy Results & Data Vital Signs (Past 12 Hours) Vital Signs Temp Pulse Pulse Resp BP BP Pulse Ox 06/13/19 11:36 36.9 C 80 84 16 103/69 120/71 96 06/13/19 06:57 36.9 C 84 16 103/69 96 Laboratory Results Short CBC 06/13/19 Range/Units 06:56 WBC 3.25 L (4.8-10.8) K/uL Hgb 8.6 L (12.0-16.0) g/dL Hct 25.6 L (37-47) % Plt Count 202 (130-400) K/uL BMP 06/13/19 06:56 Sodium 140 Potassium 3.8 Chloride 109 H Carbon Dioxide 27 BUN 21 H Creatinine 0.98 Glucose 98 Calcium 8.3 L Medications Administered Current Inpatient Medications Acetaminophen (Tylenol) 650 mg PO Q4H PRN PRN Reason: pain/fever Stop: 07/09/19 20:58 Last Admin: 06/12/19 15:28 Dose: 650 mg Documented by: Aspirin (Ecotrin Ectab) 81 mg PO BID [facility] Stop: 07/10/19 20:59 Last Admin: 06/13/19 07:32 Dose: 81 mg Documented by: Bisacodyl (Dulcolax) 10 mg PO DAILY PRN PRN Reason: CONSTIPATION Stop: 07/09/19 21:20 Fluticasone Propionate (Flonase) 2 sprays NA DAILY PRN PRN Reason: Nasal Congestion Stop: 07/09/19 20:58 Hydromorphone HCl (Dilaudid) 0.5 mg IV Q3H PRN PRN Reason: Pain Stop: 06/23/19 20:58 Last Admin: 06/10/19 10:32 Dose: 0.5 mg Documented by: Hydroxyurea (Hydrea) 500 mg PO SuTuThSa@0900 [facility] Stop: 07/11/19 08:59 Last Admin: 06/12/19 07:26 Dose: 500 mg Documented by: Hydroxyurea (Hydrea) 1,000 mg PO MoWeFr@0900 [facility] Stop: 07/10/19 08:59 Last Admin: 06/13/19 07:32 Dose: 1,000 mg Documented by: Naloxone HCl (Narcan) 0.1 mg IV UD PRN PRN Reason: Opioid Overdose Stop: 07/10/19 17:51 Ondansetron HCl (Zofran) 4 mg IV Q6H PRN PRN Reason: Nausea Stop: 07/09/19 20:58 Last Admin: 06/10/19 10:32 Dose: 4 mg Documented by: Polyethylene Glycol (Miralax Powder Packet) 17 gm PO DAILY PRN PRN Reason: Constipation Stop: 07/09/19 20:58 Last Admin: 06/13/19 07:37 Dose: 17 gm Documented by: Spironolactone (Aldactone) 25 mg PO DAILY [facility] Stop: 07/10/19 08:59 Last Admin: 06/13/19 07:32 Dose: 25 mg Documented by: (1) Fall Encounter type: initial encounter Qualified Code(s): W19.XXXA - Unspecified fall, initial encounter
--- NOTE | 2019-06-14 08:25 | Discharge Summary ---
Date of Service June 14, 2019 Admission HPI Per Admitting Provider DICTATED BY: Esteban Montalvo MD DATE OF ADMISSION: 06/09/2019 CHIEF COMPLAINT: Status post fall and right hip fracture. HISTORY OF PRESENT ILLNESS: This is an 84-year-old female with past medical history significant for hyperlipidemia, chronic constipation, chronic kidney disease stage III, osteoporosis, meniere's disease, essential thrombocythemia, statin intolerance, who presents with fall and right hip fracture. The patient lives with her daughter. The patient was in the backyard with her dogs. When she turned around, she lost balance and fell down on the right side. Could not able to get up. Has severe pain and was brought in and imaging studies show right femoral neck fracture. Received pain medications. Pain is controlled, but the pain medication is causing her nausea and she is slightly drowsy with the pain medications. Prior to that she was fine. She ambulates without any support. She can climb steps without any issues. No complaints of chest pain or shortness of breath or cough or headaches as per the daughter. No belly pain, no diarrhea or constipation. Normal bladder movements. Appetite is good. No dysphagia. Sleeps okay. No swelling in the legs, no rash. Currently, somewhat sleepy but the patient says she is sick to the stomach, but otherwise she is doing okay. Hemodynamically stable. Admission Exam Per Admitting Provider GENERAL: The patient is old and frail, not in acute distress. VITAL SIGNS: Temperature 36, afebrile, pulse 78, respiratory rate 21, blood pressure 151/63, oxygen 97% on room air. HEENT: No pallor, no icterus. Pupils are equal, round, reactive to light. NECK: No JVD, no neck masses, no carotid bruits. CARDIOVASCULAR: S1, S2 heard, regular rate and rhythm, no murmur, no gallop. RESPIRATORY SYSTEM: Normal AP diameter. No accessory muscle use. No wheezing, no crackles. ABDOMEN: Soft, bowel sounds present. Mild abdominal discomfort. No guarding, no rigidity, no distention. CENTRAL NERVOUS SYSTEM: Somewhat drowsy but obeys commands, oriented. EXTREMITIES: Right lower extremity is slightly shortened. No edema, no erythema seen. Principal Diagnosis Mechanical fall with a fracture of right femoral neck, status post right hip hemiarthroplasty on 06/10, Mnire's disease, CKD and essential thrombocythemia Discharge Exam Constitutional well developed and well nourished; no acute distress and not ill appearing Eyes PERRL, conjunctivae normal, anicteric sclerae ENMT external ear and nose normal, oropharynx normal Neck trachea midline, no thyromegaly Respiratory normal respiratory effort; no respiratory distress Auscultation: lungs clear to auscultation bilaterally Cardiovascular Rate/Rhythm: regular rate and regular rhythm Heart Sounds: no murmur Gastrointestinal (Abdomen) Inspection/Auscultation: abdomen normal to inspection and normal bowel sounds Lymphatic no cervical or axillary lymphadenopathy Discharge Data Allergies Allergy/AdvReac Type Severity Reaction Status Date / Time Sulfa (Sulfonamide Allergy Mild Hives Verified 06/09/19 19:48 Antibiotics) Consultations 06/09/19 19:47 ED Decision to Admit Stat 06/09/19 20:59 Consult Case Management - Discharge Planning Routine 06/10/19 12:15 Consult Orthopedic Surgery Routine Procedures Performed Operation Date: 06/10/19 08:20 Actual Procedures p Right Anterior Hip Hemiarthroplasty(Right) - Reji Stockton DO Ordered Studies 06/10/19 14:30 FL fluoroscopy <1hr Routine FL hip RT 1V Routine Hospital Course (1) Displaced fracture of right femoral neck: Status post mechanical fall with fracture of the right femoral neck Was not able to get up from floor following the fall Appreciate orthopedic evaluation and recommendation No medical contraindication for proposed surgery Status post right hip hemiarthroplasty on 06/10 Has been doing reasonably well following surgery Has been getting physical therapy and awaiting placement Medically stable Awaiting placement Will not prescribe any narcotics pain medication orally Has been accepted to rehab and will be transferred this afternoon (2) Fall: Status post mechanical fall (3) Meniere disease: Has Mnire's disease and complains today of vertigo with sharp neck movement and cannot lie flat due to dizziness Likely contributed the fall No acute symptoms at rest (4) CKD (chronic kidney disease) stage 3, GFR 30-59 ml/min: Creatinine remains stable at 1.06 as of 06/09 DVT prophylaxis As per Orth Likely be discharged tomorrow to rehab Discussed with the daughter and the patient Total Time Total Time Spent Total Time Spent (In Minutes): 35 minutes Total Time Includes: Examination of the Patient, Discharge Planning, Medication Reconciliation and Communication With Other Providers Discharge Plan Discharge Items Patient Disposition: Transfer Inpatient Rehab Fac Reason For Visit: FALL Discharge Diagnosis: Mechanical fall with a fracture of right femoral neck, status post right hip hemiarthroplasty on 06/10, Mnire's disease, CKD and essential thrombocythemia Condition on Discharge: Good Activity: As commented below Non-emergency contact: Primary Care Provider Call non-emergency contact if: you have any medication questions Follow-up/Referrals: Mike East MD [Primary Care Provider] - (Please make an appointment with your primary care physician within 7 days following discharge from the facility Please make an appointment with the Dr. Stockton in 2 weeks.#[phone].) Diet: Regular Addtl Attending Provider Instructions: ORTHOPEDIC INSTRUCTIONS Hip Hemiarthroplasty Activity and Therapy Recommendations: 1. You were shown a series of exercises in the hospital. Do these exercises three times each day if you are able. 2. Get up and walk several times each day if you are capable. Make sure you have assistance is needed. For the first four weeks, try not to stand or walk for more than one hour at a time. If you do stand or walk for more than one hour, you will not hurt anything, but your leg will likely swell. 3. As you feel comfortable, you may change from the walker or crutches to a cane and then to independent walking if you are able. Please be safe. Medications: 1. Narcotic You will likely be sent from the hospital with the narcotic pain medication that worked best throughout your stay. 2. Aspirin You will be required to take Aspirin 81mg twice a day for 6 weeks after surgery to prevent blood clots. 3. Other medications may be given for specific circumstances. If you have any questions, please call the office at [phone]. 4. Resume previous home medications unless otherwise instructed TEDs/Elastic Stockings: The white elastic stockings help limit swelling and prevent blood clots from forming in your legs. The more you wear them, the more they work. Wear them for six weeks. Dressing Care: You will likely have a purple VAC dressing after surgery. This dressing will k eep the incision dry and promote early healing. After about 8 days the batteries will wear out and the VAC will lose suction. Simply remove the dressing at that time and throw everything away, including the small suction machine. Then, you may leave the sean open to air or cover them with a dry dressing so they do not rub on your pants. The sean will be removed at your 2 week follow-up appointment. Showering: You may shower immediately with the purple VAC dressing. Let the shower spray hit your opposite side and slowly pat the plastic dry. Do not soak the dressing. After the dressing is removed you may shower normally with the sean exposed. Let soapy water run over the sean and pat them dry. Things To Watch For: 1. Drainage from the incision site that occurs more than one week after your surgery. 2. Increased redness at the incision site. 3. Fever above 102 degrees Fahrenheit. 4. Unusual chest pain or shortness of breath. 5. Call [facility] at with any of the above problems Follow-Up Visit: Follow-up with Dr. Stockton 2 weeks after your day of surgery. Please call to make an appointment or be sure your rehab facility has made one. If you have any questions call Pending Studies at Discharge: No Stand-Alone Forms: [facility] Skilled Items Patient informed of condition?: Yes DNR: No Discharge Level of Care: Skilled Communicable Disease: No Discharge Prognosis: Stable Lines: None Urinary Catheter: No Medications and DC Order Prescriptions: New aspirin [Ecotrin Low Strength] 81 mg Tablet,Delayed Release (Dr/Ec) 81 mg PO BID 30 Days Qty: 60 RF: 0 Continued hydroxyurea [Hydrea] 500 mg capsule 500 mg PO SUTUTHSA RF: 0 hydroxyurea [Hydrea] 500 mg capsule 1,000 mg PO MOWEFR RF: 0 polyethylene glycol 3350 [Miralax] 17 gram Powder In Packet 17 g PO DAILY PRN (Reason: Constipation) RF: 0 spironolactone [Aldactone] 25 mg tablet 25 mg PO DAILY RF: 0 fluticasone propionate [Flonase Allergy Relief] 50 mcg/actuation spray,suspension 2 spray INTRANASAL DAILY PRN (Reason: Nasal Congestion) RF: 0 bisacodyl 5 mg Tablet 10 mg PO DAILY PRN (Reason: Constipation) RF: 0 aspirin [Aspir-81] 81 mg Tablet,Delayed Release (Dr/Ec) 81 mg PO DAILY PRN (Reason: pain, itching) RF: 0 Discharge Orders: Discharge Order (Routine); Ordered 06/13/19 Ordered By: Catrina Kim Admission Data Admit Date/Time: 06/09/19 19:50 Attending Provider: Catrina Kim Admit Provider: Esteban Montalvo Primary Care Provider: Mike East Other Providers: [facility] ; Esteban Montalvo ; Kirill Castellanos Other Interventions: Discharge Summary Assessment (RN) Last Done: 06/13/19 11:36 DC Date/Time DO NOT enter until pt leaves facility: 06/13/19 14:24
== END 2019-06-13 14:24 | DRG 470 ==
LOC: ED 17:23 → 3W 19:50

== ENCOUNTER 2022-11-24 11:35 | Inpatient (IN) ==
[2022-11-24] MEDS ORDERED: fentaNYL citrate PF 100 MCG/2 ML VIAL IM ONE (11:59)
--- NOTE | 2022-11-24 12:04 | Emergency Department Note ---
Impression & Plan Fall from standing, Periprosthetic hip fracture ED Provider Note HISTORY OF PRESENT ILLNESS: Patient is an 87-year-old female presenting with right chest wall pain and right hip pain after a fall from standing. Patient's daughter provides history, as patient is demented and amnestic to the events. Daughter reports that patient was in her room and she was in the other room when she heard a crash and went to investigate and found the patient on the floor next to her bed with her head against the desk. No reported loss of consciousness. She is not on any anticoagulation. Patient is complaining of right chest wall pain and right hip pain. Patient is normally ambulatory with a walker at home. ROS: as above PHYSICAL EXAM: Constitutional: Patient appears in no acute distress. HENT: Head: Normocephalic and atraumatic. Eyes: EOMI, PERRL Mouth/Throat: Mucous membranes moist. Neck: Trachea midline. Neck supple. No midline cervical spine TTP. Cardiovascular: RRR, No murmurs, rubs or gallops. Intact distal pulses. Pulmonary/Chest: No respiratory distress. Breath sounds clear and equal bilaterally. No wheezes or rales. Right lateral and posterior chest wall tenderness to palpation. No obvious ecchymosis or evidence of flail chest Abdominal: BS +. Abdomen soft, no tenderness, rebound or guarding. Musculoskeletal: - RLE: Tender to palpation over the right hip and right lateral proximal femur. Intact DP pulses. Able to dorsiflex and plantarflex at the ankle. Able to flex and extend at the knee. Unable to range the femur secondary to pain Skin: Warm and dry. No rash, erythema, pallor or cyanosis Neurological: Alert. CN II-XII grossly intact MDM: - Vitals signs stable. - History obtained via patient's daughter, given patient's dementia. Patient presents with right hip pain and right chest wall pain after fall from standing. Patient had an unwitnessed fall from standing and was found on the ground on he r right hip. Complaining of right hip pain. She had her head against a desk. No reported loss of consciousness. - Chronic conditions affecting care: dementia; HTN; HLD - Differential diagnoses include, but are not limited to: pelvis fracture; femur fracture; femur dislocation; ACS; intracranial hemorrhage; rib fracutres - Order placed for continuous cardiac monitoring. At this time, monitor showed rate of 80 bpm with normal sinus rhythm, per my interpretation. - External medical records reviewed. - EKG reviewed by myself showed normal sinus rhythm. Rate 75 bpm. QTc 437. No acute ischemic changes - Laboratory workup interpreted by myself showed leukocytosis (WBC 15.71); thrombocytosis (plt 523); normal PT/INR; stable electrolytes - CT head wo contrast negative for intracranial pathology. - CT neck wo contrast negative for acute injury. - Patient given 25 mcg IV fentanyl for pain control initially. On reassessment, the patient is complaining of returned pain. She is given 50 mcg of IV fentanyl - CT chest wo contrast showed mild T4 compression deformity which is new from scan in April 2022. Also noted to have vertebral body height loss at the chronic T8 burst fracture. Small left pleural effusion. - Right hip xray shows mildly displaced periprosthetic fracture of the proximal femur - On review of chart, patient's right prosthetic was placed in 2018 by [facility]. - Discussed case with [facility], Dr. Stockton. Recommended admission to hospitalist service. - Discussion was had with manager social responsibility about patient's case and need for adm ission. - Hospitalist, Dr. Kelley, consulted for admission - Patient admitted to [facility] service for further evaluation and management. ASSESSMENT AND PLAN: Diagnosis: fall from standing; right hip pain; right periprosthetic hip fracture Plan: admit Past Med/Surg History Medical History Back pain Closed fracture of both ankles Coccygeal fracture Displaced fracture of right femoral neck Hiatal hernia Hyperlipidemia Hypertension Meniere disease Osteoarthritis Osteoporosis T12 compression fracture Vertigo Wrist fracture, bilateral Surgical History History of appendectomy History of cataract surgery History of colonoscopy History of open reduction and internal fixation (ORIF) procedure History of right hip hemiarthroplasty (~05/2019) Family History Father Myocardial infarction Mother Dementia Denies family history of Ovarian cancer Prostate cancer Breast cancer Colorectal cancer Social History Smoking Status: Never smoker Second Hand Exposure: No; Do You Dip or Chew Tobacco: No; Hx Alcohol Use: No Hx Substance Use: No Preferred Language: Yoruba Communication Ability: Effective Visual Impairment: No Limitations Hearing Ability: Normal Foreman/Pile Driving And Erection Required: No Beliefs That Will Affect Care: None marital status: Current Living Situation: Family Current Living Situation Comment: lives with daughter Cher current occupational status: retired 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 [employer] How many Children do You have: 2 Feels Safe at Home: Yes Childhood Exposure to Second-Hand Smoke: No Diet: regular Diet Comment: regular during the past year weight has: decreased > 10 lbs Dental Care, Regularly: Yes Physical Activity Frequency: Does not Exercise Seatbelt Use: always Sunscreen Use: Yes Assistive Devices: Cane and Glasses Allergies Allergies Allergy/AdvReac Type Severity Reaction Status Date / Time Sulfa (Sulfonamide Allergy Intermediate Hives Verified 11/24/22 15:27 Antibiotics) [id number] Reductase AdvReac Severe ELAVATION Verified 11/24/22 15:27 Inhibitor OF LFTS [Ifnkmmz-Vsu-Gxm Reductase Inhibitor] Home Meds Home Medications Medication Instructions Recorded Confirmed hydroxyurea 500 mg capsule (Hydrea) 500 mg PO [id number] 06/09/19 11/24/22 acetaminophen 500 mg tablet 500 mg PO Q6H PRN Fever Or Pain 07/02/20 11/24/22 (Tylenol Extra Strength) cholecalciferol (vitamin D3) 25 12.5 mcg PO DAILY 11/24/22 11/24/22 mcg (1,000 unit) tablet (Vitamin D3) cyanocobalamin (vitamin B-12) 1,000 mcg PO DAILY 11/24/22 11/24/22 1,000 mcg tablet (Vitamin B-12) cyanocobalamin (vitamin B-12) 1,000 mcg subcut MONTHLY 11/24/22 11/24/22 1,000 mcg/mL injection solution Previous Rx's Medication Instructions Recorded syringe with needle 3 mL 25 x 5/8" #10 ea 04/17/22 (BD SafetyGlide Syringe) memantine 10 mg tablet 10 mg PO BID #60 tabs 08/25/22 sertraline 25 mg tablet 25 mg PO DAILY #30 tabs 06/01/23 Results & Data (ED) Vital Signs Vital Signs - 24 hr 11/24/22 11:49 11/24/22 11:49 11/24/22 12:07 Temperature 36.8 C 36.8 C Temperature Source Oral Oral Pulse Rate 74 77 Pulse Rate [Apical] 75 Pulse Rhythm [Apical] Respiratory Rate 18 24 Respiratory Effort / Characteristics Non-Labored Non-Labored Respiratory Depth Normal Normal Respiratory Pattern Regular Regular Blood Pressure 148/74 H Blood Pressure [Right Arm] 148/74 H Blood Pressure Mean 98 Blood Pressure Mean [Right Arm] 98 Pulse Oximetry 96 95 Oxygen Delivery Method Room Air Room Air Sepsis Recent Fever Within 48 Hours No Sepsis New/Unexplained Change in Mental Status No Sepsis Action Taken by Nursing No Action Required 11/24/22 13:27 11/24/22 15:00 Temperature Temperature Source Pulse Rate Pulse Rate [Apical] 77 82 Pulse Rhythm [Apical] Regular Respiratory Rate 20 18 Respiratory Effort / Characteristics Non-Labored Non-Labored Spontaneous Respiratory Depth Normal Normal Respiratory Pattern Regular Blood Pressure Blood Pressure [Right Arm] 157/81 H 166/86 H Blood Pressure Mean Blood Pressure Mean [Right Arm] 106 112 Pulse Oximetry 97 93 Oxygen Delivery Method Room Air Room Air Sepsis Recent Fever Within 48 Hours Sepsis New/Unexplained Change in Mental Status Sepsis Action Taken by Nursing Laboratory Data 11/24/22 11:57 11/24/22 11:57 Lab Results 11/24/22 11/24/22 11/24/22 Range/Units 11:57 11:57 11:57 WBC 15.71 H (4.8-10.8) K/ul RBC 4.12 L (4.20-5.40) M/uL Hgb 13.7 (12.0-16.0) g/dl Hct 41.3 (37.0-47.0) % MCV 100.2 H (80.0-100.0) fL MCH 33.3 (25.0-34.0) pg MCHC 33.2 (32.0-36.0) g/dL RDW Std Deviation 55.2 H (36.4-46.3) fL RDW Coeff of Vanna 15.0 H (11.5-14.5) % Plt Count 523 H (130-400) K/uL MPV 10.4 (9.4-12.4) fL Immature Gran % (Auto) 1.6 % Neut % (Auto) 85.9 % Lymph % (Auto) 8.1 % [place] % (Auto) 3.2 % Eos % (Auto) 0.8 % Baso % (Auto) 0.4 % Neut # (Auto) 13.50 H (1.40-6.50) K/uL Lymph # (Auto) 1.27 (1.2-3.4) K/uL [place] # (Auto) 0.51 (0.11-0.59) K/uL Eos # (Auto) 0.12 (0-0.50) K/uL Baso # (Auto) 0.06 (0-0.2) K/uL Immature Gran # (Auto) 0.25 H (0.01-0.20) K/uL PT 11.4 (9.0-12.0) Seconds INR 1.0 (0.9-1.1) APTT 25.4 (21.0-31.0) Seconds PTT Ratio 0.9 Sodium 141 (136-145) mmol/L Potassium 4.1 (3.5-5.1) mmol/L Chloride 105 (98-107) mmol/L Carbon Dioxide 29 (21-32) mmol/L Anion Gap 7 (3-11) BUN 21 (6-23) mg/dl Creatinine 1.11 (0.6-1.2) mg/dl Est Cr Clr Drug Dosing Not Reportable Est GFR ( Amer) 51.3 ml/min Est GFR (Non-Af Amer) 44.3 ml/min BUN/Creatinine Ratio 18.9 (10-20) Glucose 97 (70-99(Fasting)) mg/dl Calcium 9.5 (8.6-10.3) mg/dl Total Bilirubin 0.8 (0.2-1.0) mg/dl AST 28 (13-39) U/L ALT 21 (7-52) U/L Alkaline Phosphatase 70 (34-104) U/L Total Protein 6.5 (6.0-8.3) gm/dl Albumin 4.0 (3.4-5.0) gm/dl Globulin 2.5 (2.5-4.0) gm/dl Albumin/Globulin Ratio 1.6 (0.9-2) Urine Color Urine Appearance (Clear) Urine pH (4.5-7.5) Ur Specific [place] (1.000-1.030) Urine Protein (Negative) Urine Glucose (UA) (Negative) Urine Ketones (Negative) Urine Blood (Negative) Urine Nitrite (Negative) Urine Bilirubin (Negative) Urine Urobilinogen (Negative) Ur Leukocyte Esterase (Negative) 11/24/22 Range/Units 13:29 WBC (4.8-10.8) K/ul RBC (4.20-5.40) M/uL Hgb (12.0-16.0) g/dl Hct (37.0-47.0) % MCV (80.0-100.0) fL MCH (25.0-34.0) pg MCHC (32.0-36.0) g/dL RDW Std Deviation (36.4-46.3) fL RDW Coeff of Vanna (11.5-14.5) % Plt Count (130-400) K/uL MPV (9.4-12.4) fL Immature Gran % (Auto) % Neut % (Auto) % Lymph % (Auto) % [place] % (Auto) % Eos % (Auto) % Baso % (Auto) % Neut # (Auto) (1.40-6.50) K/uL Lymph # (Auto) (1.2-3.4) K/uL [place] # (Auto) (0.11-0.59) K/uL Eos # (Auto) (0-0.50) K/uL Baso # (Auto) (0-0.2) K/uL Immature Gran # (Auto) (0.01-0.20) K/uL PT (9.0-12.0) Seconds INR (0.9-1.1) APTT (21.0-31.0) Seconds PTT Ratio Sodium (136-145) mmol/L Potassium (3.5-5.1) mmol/L Chloride (98-107) mmol/L Carbon Dioxide (21-32) mmol/L Anion Gap (3-11) BUN (6-23) mg/dl Creatinine (0.6-1.2) mg/dl Est Cr Clr Drug Dosing Est GFR ( Amer) ml/min Est GFR (Non-Af Amer) ml/min BUN/Creatinine Ratio (10-20) Glucose (70-99(Fasting)) mg/dl Calcium (8.6-10.3) mg/dl Total Bilirubin (0.2-1.0) mg/dl AST (13-39) U/L ALT (7-52) U/L Alkaline Phosphatase (34-104) U/L Total Protein (6.0-8.3) gm/dl Albumin (3.4-5.0) gm/dl Globulin (2.5-4.0) gm/dl Albumin/Globulin Ratio (0.9-2) Urine Color Yellow Urine Appearance Clear (Clear) Urine pH 7.0 (4.5-7.5) Ur Specific [place] 1.015 (1.000-1.030) Urine Protein Negative (Negative) Urine Glucose (UA) Negative (Negative) Urine Ketones Negative (Negative) Urine Blood Negative (Negative) Urine Nitrite Negative (Negative) Urine Bilirubin Negative (Negative) Urine Urobilinogen Negative (Negative) Ur Leukocyte Esterase Negative (Negative) Administered Medications Discontinued Medications Fentanyl Citrate (Fentanyl Citrate Pf 100 Mcg/2 Ml Vial) 25 mcg IM NOW ONE Stop: 11/24/22 12:00 Last Admin: 11/24/22 12:14 Dose: Not Given Documented By: LOLA Fentanyl Citrate (Fentanyl Citrate Pf 100 Mcg/2 Ml Vial) 25 mcg IV NOW ONE Stop: 11/24/22 12:15 Last Admin: 11/24/22 12:17 Dose: 25 mcg Documented By: LOLA Imaging Data Radiologist's Impression: Cervical Spine CT 11/24/22 11:59 CT cervical spine wo con CLINICAL HISTORY: Fall from standing TECHNIQUE: Multidetector row helical CT of the cervical spine was performed without administration of intravenous contrast. Coronal and sagittal reformations were obtained. Automated dose lowering techniques and/or adjustment according to patient size were utilized for this exam. Comparison: None available at the time of this dictation. FINDINGS: No acute fractures or subluxations are identified. Degenerative changes are seen in the visualized spine. The alignment is normal. Soft tissues are unremarkable. IMPRESSION: Degenerative changes without evidence of acute bony injury. ACT 112: Negative or not required by law. Electronically signed by: Armani Torres M.D. 11/24/2022 1:[address] 11/24/22 11:59 CT chest diagnostic wo con CT DOSE: 1280.28 mGy.cm CLINICAL HISTORY: 87 years-old Female with Fall from standing; right posterior rib tenderness. Acute chest pain status post fall TECHNIQUE: Multiaxial CT images of the chest were performed without contrast. A dose lowering technique was utilized adhering to the principles of ALARA. COMPARISON: CT cervical spine of same day, chest CT 05/05/2022 FINDINGS: No thyroid nodule or lymphadenopathy. The heart is moderately enlarged with moderate coronary artery calcifications. No pericardial effusion. Atherosclerosis of the thoracic aorta. Unremarkable pulmonary artery. The opacified pulmonary artery is unremarkable. Small left pleural effusion. No pneumothorax or overt pulmonary edema. Mild left lower lobe consolidation is similar to prior. No suspicious pulmonary nodules or masses. Central airways are patent. Unremarkable soft tissues. Degenerative changes of the shoulders and spine. Demineralized appearance of the bones. Chronic T12 burst fracture with 5 mm retropulsion. No acute displaced rib fractures. There is progressive vertebral body height loss involving the subacute to chronic T8 burst fracture with 3 mm retropulsion mild superimposed compression at T4 without retropulsion or significant paravertebral edema. IMPRESSION: 1. Mild T4 compression deformity is new from 05/05/2022. Correlate with point tenderness to exclude an acute fracture. 2. Progressive vertebral body height loss involving the subacute to chronic T8 burst fracture. 3. No acute displaced rib fracture or pneumothorax. 4. Large hiatal hernia. 5. Small left pleural effusion with left basilar atelectasis. ACT 112: Negative or not required by law. Electronically signed by: Caesar Rhoades M.D. 11/24/2022 1:[address] 11/24/22 11:59 CT OF THE HEAD WITHOUT CONTRAST CLINICAL HISTORY: Fall from standing. COMPARISON STUDY: Head CT May 09, 2022. MRI of the brain May 05, 2022. TECHNIQUE: Helical axial images of the head were obtained without IV contrast. Automated exposure control was utilized for the study. A dose lowering technique was utilized adhering to the principles of ALARA. FINDINGS: No acute intracranial hemorrhage, midline shift or mass effect is present. The ventricular system is stable. White matter hypodensity suggests small vessel disease. The basal cisterns are patent. No extra-axial collections are present. There are no findings to suggest acute dural sinus thrombosis or acute territorial infarct. No significant calvarial abnormalities are present. Visualized portions of the sinuses and mastoid air cells are clear. IMPRESSION: 1. No acute intracranial findings. No change in appearance of the brain. 2. No acute calvarial fracture. ACT 112: Negative or not required by law. Electronically signed by: Junaid Cuevas M.D. 11/24/2022 1:04 PM Hip X-Ray 11/24/22 11:59 XR hip RT min 2V HISTORY: 87 years-old Female right hip pain s/p fall acute right hip pain status post fall COMPARISON: 06/10/2019 TECHNIQUE: 2 views of the right hip FINDINGS: Total joint arthroplasty. Demineralized appearance of the bones. No dislocation. There is an acute periprosthetic fracture in the intratrochanteric right femur which demonstrates 6 mm posterior displacement. Moderate soft tissue swelling. Arterial calcifications. IMPRESSION: Right hip arthroplasty with acute mildly displaced periprosthetic fracture of the proximal femur. ACT 112: Negative or not required by law. The above report was generated using voice recognition software. It may contain grammatical, syntax or spelling errors. Electronically signed by: Caesar Rhoades M.D. 11/24/2022 1:50 PM Discharge Plan Visit Data Chief Complaint: Fall ED Provider: Vianney Layne Discharge Problem: Fall from standing, Periprosthetic hip fracture Forms Stand Alone Forms: [facility] [place] [employer] Prescriptions Prescriptions: No Action (DME) BD SafetyGlide Syringe 3 mL 25 x 5/8" syringe See Rx Instructions .ROUTE .MEDSUPPLY Qty: 10 6RF Rx Instructions: As directed memantine 10 mg tablet 10 mg PO BID Qty: 60 11RF sertraline 25 mg tablet 25 mg PO DAILY Qty: 30 5RF acetaminophen [Tylenol Extra Strength] 500 mg tablet 500 mg PO Q6H PRN (Reason: Fever Or Pain) hydroxyurea [Hydrea] 500 mg capsule 500 mg PO 5XWK Rx Instructions: TAKES THURSDAY THROUGH THURSDAY @ . cyanocobalamin (vitamin B-12) [Vitamin B-12] 1,000 mcg Tablet 1,000 mcg PO DAILY cholecalciferol (vitamin D3) [Vitamin D3] 25 mcg (1,000 unit) Tablet 12.5 mcg PO DAILY cyanocobalamin (vitamin B-12) 1,000 mcg/mL solution 1,000 mcg subcut MONTHLY Rx Instructions: 1,000 mcg subcutaneously ONCE A MONTH. Referrals Referrals: Shaniqua Price MD [Primary Care Provider] -
[2022-11-24] MEDS ORDERED: fentaNYL citrate PF 100 MCG/2 ML VIAL IV ONE ×2 (12:14→15:11)
[2022-11-24 12:52] LABS: Basophils # (auto) 0.06 K/uL (0-0.2); Basophils % (auto) 0.4 %; Eosinophils # (auto) 0.12 K/uL (0-0.50); Eosinophils % (auto) 0.8 %; Hematocrit (blood only) 41.3 % (37.0-47.0); Hemoglobin 13.7 g/dl (12.0-16.0); Immature Granulocytes # (auto) 0.25 K/uL (0.01-0.20); Immature Granulocytes % (auto) 1.6 %; Lymphocytes # (auto) 1.27 K/uL (1.2-3.4); Lymphocytes % (auto) 8.1 %; Mean Corpuscular Hemoglobin 33.3 pg (25.0-34.0); Mean Corpuscular Hgb Conc 33.2 g/dL (32.0-36.0); Mean Corpuscular Volume 100.2 fL (80.0-100.0); Mean Platelet Volume 10.4 fL (9.4-12.4); Monocytes # (auto) 0.51 K/uL (0.11-0.59); Monocytes % (auto) 3.2 %; Neutrophils % (auto) 85.9 %; Platelet Count 523 K/uL (130-400); RDW Standard Deviation 55.2 fL (36.4-46.3); Red Blood Count 4.12 M/uL (4.20-5.40); White Blood Count 15.71 K/ul (4.8-10.8)
[2022-11-24 12:59] LABS: Alanine Aminotransferase 21 U/L (7-52); Albumin Globulin Ratio 1.6 (0.9-2); Alkaline Phosphatase 70 U/L (34-104); Anion Gap 7 (3-11); Aspartate Aminotransferase 28 U/L (13-39); BUN Creatinine Ratio 18.9 (10-20); Bilirubin,Total 0.8 mg/dl (0.2-1.0); Blood Urea Nitrogen 21 mg/dl (6-23); Calcium 9.5 mg/dl (8.6-10.3); Carbon Dioxide 29 mmol/L (21-32); Chloride 105 mmol/L (98-107); Est GFR (African American) 51.3 ml/min; Est GFR (Non-African American) 44.3 ml/min; Globulin 2.5 gm/dl (2.5-4.0); Glucose 97 mg/dl (70-99(Fasting)); Potassium 4.1 mmol/L (3.5-5.1); Sodium 141 mmol/L (136-145); Total Protein 6.5 gm/dl (6.0-8.3)
[2022-11-24 13:05] LABS: Partial Thromboplastin Ratio 0.9; Partial Thromboplastin Time 25.4 Seconds (21.0-31.0); Prothrombin Time 11.4 Seconds (9.0-12.0)
--- NOTE | 2022-11-24 13:07 | CT Scan Report ---
CT OF THE HEAD WITHOUT CONTRAST CLINICAL HISTORY: Fall from standing. COMPARISON STUDY: Head CT May 09, 2022. MRI of the brain May 05, 2022. TECHNIQUE: Helical axial images of the head were obtained without IV contrast. Automated exposure con trol was utilized for the study. A dose lowering technique was utilized adhering to the principles o f ALARA. FINDINGS: No acute intracranial hemorrhage, midline shift or mass effect is present. The ventricular system is stable. White matter hypodensity suggests small vessel disease. The basal cisterns are rosas nt. No extra-axial collections are present. There are no findings to suggest acute dural sinus thromb osis or acute territorial infarct. No significant calvarial abnormalities are present. Visualized por tions of the sinuses and mastoid air cells are clear. IMPRESSION: 1. No acute intracranial findings. No change in appearance of the brain. 2. No acute calvarial fracture. ACT 112: Negative or not required by law. Electronically signed by: Junaid Cuevas M.D. 11/24/2022 1:04 PM
--- NOTE | 2022-11-24 13:10 | CT Scan Report ---
CT chest diagnostic wo con CT DOSE: 1280.28 mGy.cm CLINICAL HISTORY: 87 years-old Female with Fall from standing; right posterior rib tenderness. Acute chest pain status post fall TECHNIQUE: Multiaxial CT images of the chest were performed without contrast. A dose lowering techni que was utilized adhering to the principles of ALARA. COMPARISON: CT cervical spine of same day, chest CT 05/05/2022 FINDINGS: No thyroid nodule or lymphadenopathy. The heart is moderately enlarged with moderate castro ry artery calcifications. No pericardial effusion. Atherosclerosis of the thoracic aorta. Unremarkabl e pulmonary artery. The opacified pulmonary artery is unremarkable. Small left pleural effusion. No pneumothorax or overt pulmonary edema. Mild left lower lobe consolidation is similar to prior. No suspicious pulmonary nodules or masses. Central airways are patent. Unremarkable soft tissues. Degene rative changes of the shoulders and spine. Demineralized appearance of the bones. Chronic T12 burst f racture with 5 mm retropulsion. No acute displaced rib fractures. There is progressive vertebral body height loss involving the subacute to chronic T8 burst fracture with 3 mm retropulsion mild superimp osed compression at T4 without retropulsion or significant paravertebral edema. IMPRESSION: 1. Mild T4 compression deformity is new from 05/05/2022. Correlate with point tenderness to exclude a n acute fracture. 2. Progressive vertebral body height loss involving the subacute to chronic T8 burst fracture. 3. No acute displaced rib fracture or pneumothorax. 4. Large hiatal hernia. 5. Small left pleural effusion with left basilar atelectasis. ACT 112: Negative or not required by law. Electronically signed by: Caesar Rhoades M.D. 11/24/2022 1:07 PM
--- NOTE | 2022-11-24 13:19 | CT Scan Report ---
CT cervical spine wo con CLINICAL HISTORY: Fall from standing TECHNIQUE: Multidetector row helical CT of the cervical spine was performed without administration of intravenous contrast. Coronal and sagittal reformations were obtained. Automated dose lowering techn iques and/or adjustment according to patient size were utilized for this exam. Comparison: None available at the time of this dictation. FINDINGS: No acute fractures or subluxations are identified. Degenerative changes are seen in the visualized sp ine. The alignment is normal. Soft tissues are unremarkable. IMPRESSION: Degenerative changes without evidence of acute bony injury. ACT 112: Negative or not required by law. Electronically signed by: Armani Torres M.D. 11/24/2022 1:18 PM
[2022-11-24 13:43] LABS: Appearance Urine Clear (Clear); Bilirubin Urine Negative (Negative); Blood Urine Negative (Negative); Color Urine Yellow; Glucose Urine UA Negative (Negative); Ketones Urine Negative (Negative); Leukocyte Esterase Urine Negative (Negative); Nitrite Urine Negative (Negative); Protein Urine Negative (Negative); Specific Gravity Urine 1.015 (1.000-1.030); Urobilinogen Urine Negative (Negative)
--- NOTE | 2022-11-24 13:51 | XRay Report ---
XR hip RT min 2V HISTORY: 87 years-old Female right hip pain s/p fall acute right hip pain status post fall COMPARISON: 06/10/2019 TECHNIQUE: 2 views of the right hip FINDINGS: Total joint arthroplasty. Demineralized appearance of the bones. No dislocation. There is an acute pe riprosthetic fracture in the intratrochanteric right femur which demonstrates 6 mm posterior displace ment. Moderate soft tissue swelling. Arterial calcifications. IMPRESSION: Right hip arthroplasty with acute mildly displaced periprosthetic fracture of the proxima l femur. ACT 112: Negative or not required by law. The above report was generated using voice recognition software. It may contain grammatical, syntax o r spelling errors. Electronically signed by: Caesar Rhoades M.D. 11/24/2022 1:50 PM
--- NOTE | 2022-11-24 15:34 | History & Physical Report ---
Date of Service November 24, 2022 Assessment & Plan (1) Periprosthetic hip fracture: Plan: Fall without syncope/presyncope/chest pain, right periprosthetic hip fracture CThead: No acute intracranial pathology CTC-spine: No acute fracture/subluxation CT chest chest: T4 compression deformity new from 2021, chronic T8 burst fracture. Small left pleural effusion Right hip x-ray: Mildly displaced periprosthetic fracture of proximal right femur. Was placed by [facility] orthopedics in 2019 EKG: Normal sinus rhythm, no territorial ischemic changes, no - Leukocytosis of 15.71? Reactive although does have increased absolute neutrophils with slight left shift. No evidence of infectious abnormality on CTchest or UA. No GI symptoms. Hemoglobin 13.7, MCV 100.2. B12/folate pending Platelet count 523 with history of thrombocytosis Sodium, potassium normal Creatinine normal at baseline, admitting creatinine 1.11. Estimated GFR 44 No transaminitis UA uninfected Orthopedic consulted. Discussed with Ortho. Unclear based on imaging if pr osthetic is loose and require surgical intervention or not, CT of the hip has been ordered to help further evaluate. If surgery is indicated would not be until tomorrow afternoon at the earliest. We will give diet tonight and make n.p.o. at midnight Pain control with Tylenol. Avoid narcotics per patient's daughter as patient has a history of delirium easily precipitated with medications/narcotics in the past. CKD Baseline creatinine of approximately 11 0.1 Admitting creatinine 1.11 Estimated GFR 44 Heparin SQ 3 times daily when able to tolerate pharmacal prophylaxis Thrombocytosis JAK2 positive Continue hydroxyurea 500 mg 5 times weekly CBC/CMP daily Did reach out to patient's oncologist for regards of postoperative DVT prophylaxis recommendations given underlying thrombocytosis at family's request. Okay to use heparin subcu periprocedure, no particular recommendations regarding postop prophylaxis if surgery is required Chronic dementia Delirium precautions Continue memantine Fall precautions, bed alarm Depression Continue sertraline Macrocytosis Previously vitamin D and B12 deficient. Folic acid and B12 levels pending History of Zenker's diverticulum Aspiration precautions Patient with prior Zenker's s/p clip as noted in HPI Patient tolerates a regular diet chicken/vegetables well. Does not tolerate certain textures such as thickened mashed potatoes well. Noted. Diet: Regular, avoid thick creamy/gummy foods. N.p.o. midnight Disposition: Medical/surgical CODE STATUS: DNR/DNI DVT prophylaxis: Heparin subq TID. Hold prior to surgery. (2) Dementia: (3) Zenkers diverticulum: (4) Hypertension: (5) CKD (chronic kidney disease) stage 3, GFR 30-59 ml/min: History of Present Illness Primary Care Provider: Shaniqua Price MD Natasha is an 87-year-old female with past medical history of dementia, Zenker's diverticulum, hypertension, osteoporosis, degenerative lumbar disease, CKD 3, vertigo and Mnire disease who had an unwitnessed fall 11/24 at which time her daughter heard a crash from the other room and found Natasha on the floor. She had subsequent right-sided chest pain, low back pain, and right hip pain. ~1030 am daughter heard a crash and came in and found natasha with her walker on top of her in pain. Not sure if she hit her head or not. Natasha reports that she does remember falling, did not pass out or lose consciousness but felt "I do not know I just fell to the side ". Her daughter notes that she has had more of a shuffling gait recently, and Natasha endorses that she was trying to get around the room with her walker when she fell. She denies chest pain, chest pressure, shortness of breath, dyspnea. She does endorse that sometimes she has to take an extra breath every once in a while but that is normal for her and has not changed. She denies fever, chills, sweats. No nausea/vomiting/diarrhea. She has not had any recent cold-like symptoms or cough. She reports that her right hip hurts on the outside when she moves in bed. Has some mid low back tenderness "but nothing really worth talking about ". She denies numbness and tingling in her hands or feet. She is able to move her ankles without pain. She had been on aspirin daily for thrombocytosis, this was temporarily paused while she was on sertraline due to potential interaction and pending discussion with her oncologist. Otherwise she did not take her normal morning medications today. She has not had any bloody or black bowel movements or problems with bleeding. - Zenkers diverticulum tx last year. Was done at [facility] in [place]. On protonix intermittently. Staple with repositionalbe hemostasis clip. MR yvette, OK for static field of 1.5T and 3 T, max SFG 4000gauss, cm (40 T/M) or less. - 1x staple in the back of her throat. Tends to choke when she eats or drinks to quickly or has gummy foods like rice or pudding. Tolerates whole foods and chicken well. Used to take a low dose aspirin daily but since being on sertraline has held this for potential interaction. Aspirin was prescribed due to the thrombocytopenia. No hx of WA, PCI, or CVA Medical History: Reviewed Medications: Reviewed. Sertraline qhs 25, hydroxy M-Fi 500, b12 inj monthly, 1000mg B12 daily, D3 daily, memantine 10mg BID. Took medications this morning (takes sertraline at night bc makes sleepy, takes hydroxyurea at night). Surgical History: Reviewed. Partial R hip 2019 Family history: Reviewed Allergies: Reviewed Social History: No tobacco/etoh Code Status: DNR/DNI Allergies Allergy/AdvReac Type Severity Reaction Status Date / Time Sulfa (Sulfonamide Allergy Intermediate Hives Verified 11/24/22 15:27 Antibiotics) Kcklnuz-CPH-PmQ Reductase AdvReac Severe ELAVATION Verified 11/24/22 15:27 Inhibitor OF LFTS [Athgdfj-Xnb-Cwy Reductase Inhibitor] Home Medications Medication Instructions Recorded Confirmed Type hydroxyurea 500 mg capsule (Hydrea) 500 mg PO 5XWK 06/09/19 11/24/22 History acetaminophen 500 mg tablet 500 mg PO Q6H PRN Fever Or Pain 07/02/20 11/24/22 History (Tylenol Extra Strength) syringe with needle 3 mL 25 x 5/8" #10 ea 04/17/22 08/11/22 Rx (BD SafetyGlide Syringe) memantine 10 mg tablet 10 mg PO BID #60 tabs 08/25/22 11/24/22 Rx sertraline 25 mg tablet 25 mg PO DAILY #30 tabs 11/13/22 11/24/22 Rx cholecalciferol (vitamin D3) 25 12.5 mcg PO DAILY 11/24/22 11/24/22 History mcg (1,000 unit) tablet (Vitamin D3) cyanocobalamin (vitamin B-12) 1,000 mcg PO DAILY 11/24/22 11/24/22 History 1,000 mcg tablet (Vitamin B-12) cyanocobalamin (vitamin B-12) 1,000 mcg subcut MONTHLY 11/24/22 11/24/22 History 1,000 mcg/mL injection solution Past Med/Surg History Medical History Back pain Closed fracture of both ankles Coccygeal fracture Displaced fracture of right femoral neck Hiatal hernia Hyperlipidemia Hypertension Meniere disease Osteoarthritis Osteoporosis T12 compression fracture Vertigo Wrist fracture, bilateral Surgical History History of appendectomy History of cataract surgery History of colonoscopy History of open reduction and internal fixation (ORIF) procedure History of right hip hemiarthroplasty (~05/2019) Family History Father Myocardial infarction Mother Dementia Denies family history of Ovarian cancer Prostate cancer Breast cancer Colorectal cancer Social History Smoking Status: Never smoker Second Hand Exposure: No; Do You Dip or Chew Tobacco: No; Hx Alcohol Use: No Hx Substance Use: No Preferred Language: German Communication Ability: Effective Visual Impairment: No Limitations Hearing Ability: Normal Surveyor'S Assistant Required: No Beliefs That Will Affect Care: None marital status: Current Living Situation: Family Current Living Situation Comment: lives with negin Kwon current occupational status: retired 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 Somewhat forgetful/circumferential but answers most questions appropriately. Slightly somnolent. History is collected with negin Kwon at the bedside .NAD. Cooperative. HEENT: Atraumatic, normocephalic. Vision/hearing grossly intact Pulm: CTAB A&P. -wheezes, -rales, -rhonchi. Symmetrical chest rise. No increased work of breathing. No respiratory distress. Cardiac: RRR, +soft sm. Radial pulses intact and symmetrical. No carotid bruit Abdominal: Nontender, nondistended, soft. BS present. Extremities: Right lateral and anterior hip tender to palpation. Sensation of soft touch intact in hands and feet bilaterally without asymmetry. Ankle dorsiflexion/plantarflexion 5/5 bilaterally. PT pulse intact bilaterally, cap refill less than 2 seconds in the hallux bilaterally Results & Data Results & Data Vital Signs (Past 12 Hours) Vital Signs Temp Pulse Pulse Resp BP BP Pulse Ox 11/24/22 15:00 82 18 166/86 H 93 11/24/22 13:27 77 20 157/81 H 97 11/24/22 12:07 77 11/24/22 11:49 36.8 C 75 24 148/74 H 95 11/24/22 11:49 36.8 C 74 18 148/74 H 96 O2 Del Method 11/24/22 15:00 Room Air 11/24/22 13:27 Room Air 11/24/22 12:07 11/24/22 11:49 Room Air 11/24/22 11:49 Room Air PG Care Time/CCT Total # of Minutes Spent Total Time Spent with Patient: Total time spent is greater than 50% in coordination of care (as documented) at patient's floor/unit and/or counseling patient: Coding Level of Care Code 38770 INT INP/OBS CARE 2/55MIN Diagnoses Periprosthetic hip fracture M97.8XXA; Z96.649 Dementia F03.90 Zenkers diverticulum K22.5 Hypertension I10 CKD (chronic kidney disease) stage 3, GFR 30-59 ml/min N18.3
--- NOTE | 2022-11-24 16:45 | CT Scan Report ---
CT hip RT wo con CLINICAL HISTORY: periprosthetic fracture TECHNIQUE: Multidetector row helical CT of the right hip was performed without intravenous contrast. Coronal and sagittal reformations were obtained. Automated dose lowering techniques and/or adjustment according to patient size were utilized for this examination. CT DOSE: 263.93 mGy.cm Comparison: Comparison is made to right hip radiograph 11/24/[address] abdomen pelvis 05/05/2022 FINDINGS: Right hip arthroplasty is seen. Noted is a minimally displaced periprosthetic fracture in the femoral component of a total hip arthroplasty which is mildly comminuted. Minimal soft tissue swelling is se en. IMPRESSION: Redemonstration of a mildly comminuted periprosthetic fracture. ACT 112: Negative or not required by law. Electronically signed by: Armani Torres M.D. 11/24/2022 4:44 PM
--- NOTE | 2022-11-24 18:05 | Electrocardiogram Report ---
Test Reason : Blood Pressure : / mmHG Vent. Rate : 075 BPM Atrial Rate : 075 BPM P-R Int : 156 ms QRS Dur : 066 ms QT Int : 392 ms P-R-T Axes : 037 027 045 degrees QTc Int : 437 ms Normal sinus rhythm Normal ECG When compared with ECG of 05-MAY-2022 17:09, No significant change was found Confirmed by Kumar Heller ([id number]) on 11/24/2022 6:05:10 PM Referred By: REFERRED SELF Confirmed By:Harley Heller
[2022-11-24] MEDS: SERTRALINE HCL 50 MG TABLET PO SCH (20:06)
[2022-11-24] MEDS: HEPARIN SOD 5,000 UNIT/0.5 ML VIAL SQ SCH (20:06)
[2022-11-24] MEDS: HYDROXYUREA 500 MG CAP PO SCH (20:07)
[2022-11-24] MEDS: MEMANTINE HCL 10 MG TAB PO SCH (20:07)
[2022-11-25] MEDS: ACETAMINOPHEN 325 MG TAB PO PRN ×2 (05:17→20:43)
[2022-11-25 06:46] LABS: Basophils # (auto) 0.05 K/uL (0-0.2); Basophils % (auto) 0.5 %; Eosinophils # (auto) 0.15 K/uL (0-0.50); Eosinophils % (auto) 1.4 %; Hematocrit (blood only) 37.2 % (37.0-47.0); Hemoglobin 12.5 g/dl (12.0-16.0); Immature Granulocytes # (auto) 0.08 K/uL (0.01-0.20); Immature Granulocytes % (auto) 0.8 %; Lymphocytes # (auto) 0.73 K/uL (1.2-3.4); Lymphocytes % (auto) 6.9 %; Mean Corpuscular Hemoglobin 32.3 pg (25.0-34.0); Mean Corpuscular Hgb Conc 33.6 g/dL (32.0-36.0); Mean Corpuscular Volume 96.1 fL (80.0-100.0); Mean Platelet Volume 10.1 fL (9.4-12.4); Monocytes # (auto) 0.67 K/uL (0.11-0.59); Monocytes % (auto) 6.3 %; Neutrophils # (auto) 8.96 K/uL (1.40-6.50); Neutrophils % (auto) 84.1 %; Platelet Count 459 K/uL (130-400); RDW Coefficient of Variation 15.1 % (11.5-14.5); RDW Standard Deviation 53.1 fL (36.4-46.3); Red Blood Count 3.87 M/uL (4.20-5.40); White Blood Count 10.64 K/ul (4.8-10.8)
--- NOTE | 2022-11-25 07:03 | Orthopedic Consultation ---
Date of Service November 25, 2022 Assessment & Plan (1) Periprosthetic hip fracture: Fortunately the stem appears to be stable. I think this can be treated nonoperatively. She can be weightbearing as tolerated as pain allows. It will likely take 6 weeks for most of the pain to subside. I ordered her a full diet. I do not anticipate any surgical intervention in the near future. She can follow-up with orthopedics in 2 weeks for repeat x-rays to make sure there is been no movement of the prosthesis and to evaluate her pain. History of Present Illness Reason for Consultation: Right periprosthetic hip fracture. Requesting Physician: . Attending Physician: Roger Jacobs MD Natasha is a pleasant 87-year-old female who I did a right hip hemiarthroplasty on in 2018. She has done well with her hip until she fell about a day ago. She normally ambulates with a walker. She is dealing with advanced dementia and lives with her daughter. She came to the emergency room with complaints of right hip pain. X-rays showed a periprosthetic hip fracture. She was admitted to the medical service. Orthopedics was consulted to evaluate and treat.. Allergies Allergy/AdvReac Type Severity Reaction Status Date / Time Sulfa (Sulfonamide Allergy Intermediate Hives Verified 11/24/22 15:27 Antibiotics) Jpghkkr-NCJ-JsJ Reductase AdvReac Severe ELAVATION Verified 11/24/22 15:27 Inhibitor OF LFTS [Eghktnw-Usw-Szs Reductase Inhibitor] Home Medications Medication Instructions Recorded Confirmed Type hydroxyurea 500 mg capsule (Hydrea) 500 mg PO 5XWK 06/09/19 11/24/22 History acetaminophen 500 mg tablet 500 mg PO Q6H PRN Fever Or Pain 07/02/20 11/24/22 History (Tylenol Extra Strength) syringe with needle 3 mL 25 x 5/8" #10 ea 04/17/22 08/11/22 Rx (BD SafetyGlide Syringe) memantine 10 mg tablet 10 mg PO BID #60 tabs 08/25/22 11/24/22 Rx sertraline 25 mg tablet 25 mg PO DAILY #30 tabs 11/13/22 11/24/22 Rx cholecalciferol (vitamin D3) 25 12.5 mcg PO DAILY 11/24/22 11/24/22 History mcg (1,000 unit) tablet (Vitamin D3) cyanocobalamin (vitamin B-12) 1,000 mcg PO DAILY 11/24/22 11/24/22 History 1,000 mcg tablet (Vitamin B-12) cyanocobalamin (vitamin B-12) 1,000 mcg subcut MONTHLY 11/24/22 11/24/22 History 1,000 mcg/mL injection solution Past Med/Surg History Medical History Back pain Closed fracture of both ankles Coccygeal fracture Displaced fracture of right femoral neck Hiatal hernia Hyperlipidemia Hypertension Meniere disease Osteoarthritis Osteoporosis T12 compression fracture Vertigo Wrist fracture, bilateral Surgical History History of appendectomy History of cataract surgery History of colonoscopy History of open reduction and internal fixation (ORIF) procedure rt/left arm (s/p fx after falling) History of right hip hemiarthroplasty (~05/2019) Family History Father , age 71 of an PA Myocardial infarction Mother , age 88 with dementia Dementia Denies family history of Ovarian cancer Prostate cancer Breast cancer Colorectal cancer Social History Smoking Status: Unknown if ever smoked Second Hand Exposure: No; Do You Dip or Chew Tobacco: No; Hx Alcohol Use: No Hx Substance Use: No Preferred Language: Japanese Communication Ability: Effective Communication Ability Comment: Dementia Visual Impairment: No Limitations Hearing Ability: Normal Behavioral Geneticist Required: No Beliefs That Will Affect Care: None marital status: Current Living Situation: Family Current Living Situation Comment: lives with daughter Cher current occupational status: retired 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 Physical Exam On physical examination of the right hip, she does have some tenderness to palpation in the area of the greater trochanter. I am able to do some gentle lo groll of her right hip and some simple flexion extension without much pain.. Constitutional WD/WN, vitals as above Eyes PERRL, conjunctivae normal, anicteric sclerae ENMT external ear and nose normal, oropharynx normal Neck trachea midline, no thyromegaly Respiratory normal respiratory effort, lungs clear to auscultation Cardiovascular RRR, no murmur, no edema Gastrointestinal (Abdomen) normal bowel sounds, soft, nontender, no hepatosplenomegaly Skin no rashes, warm and dry Psychiatric A+Ox3, euthymic affect Results & Data Results & Data Laboratory Results . Diagnostic Findings X-rays of the right hip do show a right periprosthetic hip fracture. It does not appear that the stem is loose or has subsided. It looks like it may be mostly a large greater trochanteric fracture. CT scan of the right hip was reviewed. I do not see any signs of prosthetic loosening. There is a comminuted minimally displaced fracture from the greater trochanter and along the anterior lateral cortex. The calcar seems to be intact . I spoke with the radiologist and went over the scans personally with him.. PG Care Time/CCT Total # of Minutes Spent Total Time Spent with Patient: Total time spent is greater than 50% in coordination of care (as documented) at patient's floor/unit and/or counseling patient: Coding Level of Care Code 13161 IN/OBS CONSULT LVL 4,60M Diagnoses Periprosthetic hip fracture M97.8XXA; Z96.649
[2022-11-25 07:09] LABS: BUN Creatinine Ratio 22.3 (10-20); Calcium 8.9 mg/dl (8.6-10.3); Creatinine Clr Calc Pharmacy 26.8 ml/min; Est GFR (African American) 56.2 ml/min; Est GFR (Non-African American) 48.5 ml/min; Potassium 3.9 mmol/L (3.5-5.1)
[2022-11-25] MEDS: HEPARIN SOD 5,000 UNIT/0.5 ML VIAL SQ SCH ×2 (08:11→20:23)
[2022-11-25] MEDS: MEMANTINE HCL 10 MG TAB PO SCH ×2 (08:11→20:22)
--- NOTE | 2022-11-25 12:20 | Hospitalist Progress Note ---
Date of Service November 25, 2022 Assessment & Plan (1) Periprosthetic hip fracture: Plan: Fall without syncope/presyncope/chest pain, right periprosthetic hip fracture. This appears to be age-related osteoporotic fracture of the right femur and also of T4. Pain control measures. Supportive care. Orthopedic consultation appreciated. No surgical intervention indicated at this time. Weightbearing as tolerated. Follow-up with orthopedics in 2 weeks (2) Dementia: Plan: Supportive care (3) Zenkers diverticulum: Plan: No intervention necessary at this time (4) Hypertension: Plan: Stable. Continue current medication management (5) CKD (chronic kidney disease) stage 3, GFR 30-59 ml/min: Plan: Stable. Monitor intake and output. Serial labs Plan She will need SNF placement. OT and PT assessments requested Admission and Anticipated Discharge Date Admission Date: November 24, 2022 Subjective Alert. She has baseline dementia and is confused. Orthopedic consultation noted. No surgical intervention necessary at this time. Weightbearing as tolerated. Follow-up with orthopedics in 2 weeks. OT and PT assessments requested. She will need SNF placement Review of Systems Review of Systems: Constitutional-no fever or chills ENT-no blurred vision, no double vision, no epistaxis, no sore throat Respiratory-no cough, no wheezing, no shortness of breath Cardiac-no palpitations, no chest pain, no syncope GI-no nausea, vomiting, diarrhea, melena, hematochezia -no urinary retention, no urinary incontinence, no dysuria, no hematuria Musculoskeletal-right hip discomfort as expected with underlying fracture Skin-no bruising, no rashes, no pruritus Neuro-no isolated weakness, no paresthesia, no weakness Psych-no depression, no anxiety Physical Exam Physical Exam: General-alert. Chronically disoriented due to underlying dementia. No fevers, no chills HEENT-head atraumatic and normocephalic, pupils equal and reactive to light, extraocular muscles intact Neck-no lymphadenopathy or thyromegaly, trachea midline Chest-clear to auscultation percussion. No rales wheezing or rhonchi Cardiac-regular rate and rhythm, normal S1 and S2 Abdomen-normal bowel sounds, nontender, no hepatosplenomegaly Extremities-right hip discomfort from fracture Neuro-cranial nerves II through XII intact, motor and sensory function within n ormal limits, strength symmetrical , no focal deficits Psych-baseline dementia Results & Data Results & Data Vital Signs (Past 12 Hours) Vital Signs Temp Pulse Resp BP Pulse Ox O2 Del Method 11/25/22 07:26 36.6 C 78 16 131/69 92 Room Air Laboratory Results 11/25/22 05:43 11/25/22 05:43 PG Care Time/CCT Total # of Minutes Spent Total Time Spent with Patient: Total time spent is greater than 50% in coordination of care (as documented) at patient's floor/unit and/or counseling patient: Coding Level of Care Code 14483 SUB INP/OBS CARE 3/50MIN Diagnoses Periprosthetic hip fracture M97.8XXA; Z96.649 Dementia F03.90 Zenkers diverticulum K22.5 Hypertension I10 CKD (chronic kidney disease) stage 3, GFR 30-59 ml/min N18.3
[2022-11-25] MEDS: HYDROXYUREA 500 MG CAP PO SCH (20:22)
[2022-11-25] MEDS: SERTRALINE HCL 50 MG TABLET PO SCH (20:22)
[2022-11-26 06:29] LABS: Basophils # (auto) 0.04 K/uL (0-0.2); Basophils % (auto) 0.4 %; Eosinophils # (auto) 0.19 K/uL (0-0.50); Hematocrit (blood only) 36.1 % (37.0-47.0); Hemoglobin 12.2 g/dl (12.0-16.0); Immature Granulocytes # (auto) 0.09 K/uL (0.01-0.20); Lymphocytes # (auto) 0.93 K/uL (1.2-3.4); Mean Corpuscular Hemoglobin 32.5 pg (25.0-34.0); Mean Corpuscular Hgb Conc 33.8 g/dL (32.0-36.0); Mean Corpuscular Volume 96.3 fL (80.0-100.0); Mean Platelet Volume 10.2 fL (9.4-12.4); Monocytes % (auto) 6.4 %; Neutrophils # (auto) 7.48 K/uL (1.40-6.50); Neutrophils % (auto) 80.2 %; Platelet Count 404 K/uL (130-400); RDW Coefficient of Variation 14.9 % (11.5-14.5); RDW Standard Deviation 52.6 fL (36.4-46.3); Red Blood Count 3.75 M/uL (4.20-5.40); White Blood Count 9.33 K/ul (4.8-10.8)
[2022-11-26 06:43] LABS: BUN Creatinine Ratio 28.4 (10-20); Calcium 8.7 mg/dl (8.6-10.3); Creatinine Clr Calc Pharmacy 31.3 ml/min; Est GFR (Non-African American) 58.7 ml/min; Potassium 3.8 mmol/L (3.5-5.1)
--- NOTE | 2022-11-26 06:48 | Orthopedic Progress Note ---
Date of Service November 26, 2022 Assessment & Plan (1) Periprosthetic hip fracture: Overall she seems to be doing okay. Physical therapy and Occupational Therapy have been consulted and should see her today. We will see how she participates with therapy. She will likely need SNF discharge. She can be weightbearing as tolerated and as pain allows. She should follow-up with orthopedics in 2 weeks. Full orthopedic discharge instructions were placed in the discharge summary. Subjective Natasha was seen and examined at bedside this morning. She said she was not having much pain in the right hip. She rested most of the day yesterday. She has not been seen by physical therapy yet. She had no acute events overnight and has no new complaints.. Review of Systems All systems reviewed & are unremarkable except as noted in HPI & below. Physical Exam On physical examination of the right hip, I am able to do gentle logroll without much pain. She does have tenderness to deep palpation in the area of the greater trochanter.. Results & Data Results & Data Laboratory Results . Diagnostic Findings . PG Care Time/CCT Total # of Minutes Spent Total Time Spent with Patient: Total time spent is greater than 50% in coordination of care (as documented) at patient's floor/unit and/or counseling patient: Coding Level of Care Code 63706 SUB INP/OBS CARE 235MIN Diagnoses Periprosthetic hip fracture M97.8XXA; Z96.649
[2022-11-26] MEDS: MEMANTINE HCL 10 MG TAB PO SCH ×2 (08:28→21:13)
[2022-11-26] MEDS: HEPARIN SOD 5,000 UNIT/0.5 ML VIAL SQ SCH ×2 (08:28→21:13)
--- NOTE | 2022-11-26 14:58 | Hospitalist Progress Note ---
Date of Service November 26, 2022 Assessment & Plan (1) Periprosthetic hip fracture: Plan: Fall without syncope/presyncope/chest pain, right periprosthetic hip fracture. This appears to be age-related osteoporotic fracture of the right femur and also of T4. Pain control measures. Supportive care. Orthopedic consultation appreciated. No surgical intervention indicated at this time. Weightbearing as tolerated. Follow-up with orthopedics in 2 weeks (2) Dementia: Plan: Supportive care. Zoloft dosage uptitrated today, November 26, at daughter's request (3) Zenkers diverticulum: Plan: No intervention necessary at this time (4) Hypertension: Plan: Stable. Continue current medication management (5) CKD (chronic kidney disease) stage 3, GFR 30-59 ml/min: Plan: Stable. Monitor intake and output. Serial labs Plan She will need SNF placement. Final arrangements pending Admission and Anticipated Discharge Date Admission Date: November 24, 2022 Subjective No new problems. Daughter is at the bedside. SNF placement is pending. Zoloft dosage increased at daughter's request. Hemoglobin stable Review of Systems Review of Systems: Constitutional-no fever or chills ENT-no blurred vision, no double vision, no epistaxis, no sore throat Respiratory-no cough, no wheezing, no shortness of breath Cardiac-no palpitations, no chest pain, no syncope GI-no nausea, vomiting, diarrhea, melena, hematochezia -no urinary retention, no urinary incontinence, no dysuria, no hematuria Musculoskeletal-right hip discomfort as expected with underlying fracture Skin-no bruising, no rashes, no pruritus Neuro-no isolated weakness, no paresthesia, no weakness Psych-no depression, no anxiety Physical Exam Physical Exam: General-alert. Chronically disoriented due to underlying dementia. No fevers, no chills HEENT-head atraumatic and normocephalic, pupils equal and reactive to light, extraocular muscles intact Neck-no lymphadenopathy or thyromegaly, trachea midline Chest-clear to auscultation percussion. No rales wheezing or rhonchi Cardiac-regular rate and rhythm, normal S1 and S2 Abdomen-normal bowel sounds, nontender, no hepatosplenomegaly Extremities-right hip discomfort from fracture Neuro-cranial nerves II through XII intact, motor and sensory function within normal limits, strength symmetrical , no focal deficits Psych-baseline dementia Results & Data Results & Data Vital Signs (Past 12 Hours) Vital Signs Temp Pulse Resp BP Pulse Ox O2 Del Method 11/26/22 08:54 94 Room Air 11/26/22 07:32 36.4 C L 73 16 151/77 H 91 Room Air Laboratory Results 11/26/22 05:49 11/26/22 05:49 PG Care Time/CCT Total # of Minutes Spent Total Time Spent with Patient: Total time spent is greater than 50% in coordination of care (as documented) at patient's floor/unit and/or counseling patient: Coding Level of Care Code 36106 SUB INP/OBS CARE 2/35MIN Diagnoses Periprosthetic hip fracture M97.8XXA; Z96.649 Dementia F03.90 Zenkers diverticulum K22.5 Hypertension I10 CKD (chronic kidney disease) stage 3, GFR 30-59 ml/min N18.3
[2022-11-26] MEDS: HYDROXYUREA 500 MG CAP PO SCH (21:13)
[2022-11-26] MEDS: SERTRALINE HCL 50 MG TABLET PO SCH (21:13)
[2022-11-26] MEDS: ACETAMINOPHEN 325 MG TAB PO PRN (21:16)
[2022-11-27 06:58] LABS: Basophils # (auto) 0.04 K/uL (0-0.2); Basophils % (auto) 0.4 %; Eosinophils # (auto) 0.14 K/uL (0-0.50); Eosinophils % (auto) 1.5 %; Hematocrit (blood only) 36.4 % (37.0-47.0); Hemoglobin 12.1 g/dl (12.0-16.0); Immature Granulocytes # (auto) 0.08 K/uL (0.01-0.20); Immature Granulocytes % (auto) 0.8 %; Lymphocytes # (auto) 0.77 K/uL (1.2-3.4); Mean Corpuscular Hemoglobin 32.8 pg (25.0-34.0); Mean Corpuscular Hgb Conc 33.2 g/dL (32.0-36.0); Mean Corpuscular Volume 98.6 fL (80.0-100.0); Mean Platelet Volume 10.2 fL (9.4-12.4); Monocytes # (auto) 0.45 K/uL (0.11-0.59); Monocytes % (auto) 4.7 %; Neutrophils # (auto) 8.14 K/uL (1.40-6.50); Neutrophils % (auto) 84.6 %; Platelet Count 412 K/uL (130-400); RDW Coefficient of Variation 14.6 % (11.5-14.5); RDW Standard Deviation 53.7 fL (36.4-46.3); Red Blood Count 3.69 M/uL (4.20-5.40); White Blood Count 9.62 K/ul (4.8-10.8)
[2022-11-27 07:17] LABS: BUN Creatinine Ratio 27.9 (10-20); Calcium 8.9 mg/dl (8.6-10.3); Creatinine Clr Calc Pharmacy 32.1 ml/min; Est GFR (African American) 69.9 ml/min; Est GFR (Non-African American) 60.3 ml/min
[2022-11-27] MEDS: HEPARIN SOD 5,000 UNIT/0.5 ML VIAL SQ SCH ×2 (09:21→20:59)
[2022-11-27] MEDS: MEMANTINE HCL 10 MG TAB PO SCH ×2 (09:21→20:58)
[2022-11-27] MEDS ORDERED: SODIUM CHLORIDE 0.9% 1000ML 1,000 ML IV SCH (10:45)
--- NOTE | 2022-11-27 14:20 | Hospitalist Progress Note ---
Date of Service November 27, 2022 Assessment & Plan (1) Periprosthetic hip fracture: Plan: Fall without syncope/presyncope/chest pain, right periprosthetic hip fracture. This appears to be age-related osteoporotic fracture of the right femur and also of T4. Pain control measures. Supportive care. Orthopedic consultation appreciated. No surgical intervention indicated at this time. Weightbearing as tolerated. Follow-up with orthopedics in 2 weeks (2) Dementia: Plan: Supportive care. Zoloft dosage uptitrated on November 26, at daughter's request (3) Zenkers diverticulum: Plan: No intervention necessary at this time (4) Hypertension: Plan: Stable. Continue current medication management (5) CKD (chronic kidney disease) stage 3, GFR 30-59 ml/min: Plan: Stable. Monitor intake and output. Serial labs Plan She will need SNF placement. Final arrangements pending. Hopefully [facility] 28 Admission and Anticipated Discharge Date Admission Date: November 24, 2022 Subjective Alert. Baseline dementia. Oral intake is poor. Daughter is at the bedside. IV fluids have been started to prevent dehydration. Hopefully she will go to [facility] tomorrow, November 28 Review of Systems Review of Systems: Constitutional-no fever or chills ENT-no blurred vision, no double vision, no epistaxis, no sore throat Respiratory-no cough, no wheezing, no shortness of breath Cardiac-no palpitations, no chest pain, no syncope GI-no nausea, vomiting, diarrhea, melena, hematochezia -no urinary retention, no urinary incontinence, no dysuria, no hematuria Musculoskeletal-right hip discomfort as expected with underlying fracture Skin-no bruising, no rashes, no pruritus Neuro-no isolated weakness, no paresthesia, no weakness Psych-no depression, no anxiety Physical Exam Physical Exam: General-alert. Chronically disoriented due to underlying dementia. No fevers, no chills HEENT-head atraumatic and normocephalic, pupils equal and reactive to light, extraocular muscles intact Neck-no lymphadenopathy or thyromegaly, trachea midline Chest-clear to auscultation percussion. No rales wheezing or rhonchi Cardiac-regular rate and rhythm, normal S1 and S2 Abdomen-normal bowel sounds, nontender, no hepatosplenomegaly Extremities-right hip discomfort from fracture Neuro-cranial nerves II through XII intact, motor and sensory function within normal limits, strength symmetrical , no focal deficits Psych-baseline dementia Results & Data Results & Data Vital Signs (Past 12 Hours) Vital Signs Temp Pulse Resp BP Pulse Ox O2 Del Method 11/27/22 07:37 36.6 C 75 16 132/75 94 Room Air Laboratory Results 11/27/22 06:22 11/27/22 06:22 PG Care Time/CCT Total # of Minutes Spent Total Time Spent with Patient: Total time spent is greater than 50% in coordination of care (as documented) at patient's floor/unit and/or counseling patient: Coding Level of Care Code 06020 SUB INP/OBS CARE 3/50MIN Diagnoses Periprosthetic hip fracture M97.8XXA; Z96.649 Dementia F03.90 Zenkers diverticulum K22.5 Hypertension I10 CKD (chronic kidney disease) stage 3, GFR 30-59 ml/min N18.3
[2022-11-27] MEDS: QUEtiapine FUMARATE 25 MG TABLET PO SCH ×2 (15:34→20:58)
[2022-11-27] MEDS: HYDROXYUREA 500 MG CAP PO SCH (20:59)
[2022-11-27] MEDS: SERTRALINE HCL 50 MG TABLET PO SCH (20:59)
--- NOTE | 2022-11-28 09:12 | Discharge Summary ---
Date of Service November 28, 2022 Admission HPI Per Admitting Provider Natasha is an 87-year-old female with past medical history of dementia, Zenker's diverticulum, hypertension, osteoporosis, degenerative lumbar disease, CKD 3, vertigo and Mnire disease who had an unwitnessed fall 11/24 at which time her daughter heard a crash from the other room and found Natasha on the floor. She had subsequent right-sided chest pain, low back pain, and right hip pain. ~1030 am daughter heard a crash and came in and found natasha with her walker on top of her in pain. Not sure if she hit her head or not. Natasha reports that she does remember falling, did not pass out or lose consciousness but felt "I do not know I just fell to the side ". Her daughter notes that she has had more of a shuffling gait recently, and Natasha endorses that she was trying to get around the room with her walker when she fell. She denies chest pain, chest pressure, shortness of breath, dyspnea. She does endorse that sometimes she has to take an extra breath every once in a while but that is normal for her and has not changed. She denies fever, chills, sweats. No nausea/vomiting/diarrhea. She has not had any recent cold-like symptoms or cough. She reports that her right hip hurts on the outside when she moves in bed. Has some mid low back tenderness "but nothing really worth talking about ". She denies numbness and tingling in her hands or feet. She is able to move her ankles without pain. She had been on aspirin daily for thrombocytosis, this was temporarily paused while she was on sertraline due to potential interaction and pending discussion with her oncologist. Otherwise she did not take her normal morning medications today. She has not had any bloody or black bowel movements or problems with bleeding. - Zenkers diverticulum tx last year. Was done at [facility] in [place]. On protonix intermittently. Staple with repositionalbe hemostasis clip. MR conditional, OK for static field of 1.5T and 3 T, max SFG 4000gauss, cm (40 T/M) or less. - 1x staple in the back of her throat. Tends to choke when she eats or drinks to quickly or has gummy foods like rice or pudding. Tolerates whole foods and chicken well. Used to take a low dose aspirin daily but since being on sertraline has held this for potential interaction. Aspirin was prescribed due to the thrombocytopenia. No hx of HI, PCI, or CVA Medical History: Reviewed Medications: Reviewed. Sertraline qhs 25, hydroxy M-Fi 500, b12 inj monthly, 1000mg B12 daily, D3 daily, memantine 10mg BID. Took medications this morning (takes sertraline at night bc makes sleepy, takes hydroxyurea at night). Surgical History: Reviewed. Partial R hip 2019 Family history: Reviewed Allergies: Reviewed Social History: No tobacco/etoh Code Status: DNR/DNI Principal Diagnosis Mechanical fall, periprosthetic right hip fracture Discharge Exam General-alert. Chronically disoriented due to underlying dementia. No fevers, no chills HEENT-head atraumatic and normocephalic, pupils equal and reactive to light, extraocular muscles intact Neck-no lymphadenopathy or thyromegaly, trachea midline Chest-clear to auscultation percussion. No rales wheezing or rhonchi Cardiac-regular rate and rhythm, normal S1 and S2 Abdomen-normal bowel sounds, nontender, no hepatosplenomegaly Extremities-right hip discomfort from fracture Neuro-cranial nerves II through XII intact, motor and sensory function within normal limits, strength symmetrical , no focal deficits Psych-baseline dementia Discharge Data Allergies Allergy/AdvReac Type Severity Reaction Status Date / Time Sulfa (Sulfonamide Allergy Intermediate Hives Verified 11/24/22 15:27 Antibiotics) Bscfirc-QUS-HgX Reductase AdvReac Severe ELAVATION Verified 11/24/22 15:27 Inhibitor OF LFTS [Ljapafi-Vql-Nwr Reductase Inhibitor] Consultations 11/24/22 15:41 ED Decision to Admit Stat 11/24/22 16:15 Consult Orthopedic Surgery Routine Ordered Studies 11/24/22 11:59 CT chest diagnostic wo con Stat CT head/brain wo con Stat CT neck [CT cervical spine wo con] Stat 11/24/22 15:28 CT hip RT wo con Stat Hospital Course (1) Periprosthetic hip fracture: Fall without syncope/presyncope/chest pain, right periprosthetic hip fracture. This appears to be age-related osteoporotic fracture of the right femur and also of T4. Pain control measures. Supportive care. Orthopedic consultation appreciated. No surgical intervention indicated at this time. Weightbearing as tolerated. Follow-up with orthopedics in 2 weeks (2) Dementia: Supportive care. Zoloft dosage uptitrated on November 26, at daughter's request. Seroquel was started on November 27 (3) Zenkers diverticulum: No intervention necessary at this time (4) Hypertension: Stable. Continue current medication management (5) CKD (chronic kidney disease) stage 3, GFR 30-59 ml/min: Stable. Monitor intake and output. Serial labs Plan Discharge to [facility], November 28 Total Time Total Time Spent Total Time Spent (In Minutes): 40-minute Discharge Plan Discharge Items Patient Disposition: Transfer [facility] Reason For Visit: R HIP FXR Discharge Diagnosis: Mechanical fall, periprosthetic right hip fracture with no surgical intervention, history of right total hip arthroplasty Activity: As commented below Activity Comment: Weightbearing as tolerated Non-emergency contact: Primary Care Provider Call non-emergency contact if: your symptoms worsen Follow-up/Referrals: Shaniqua Price MD [Primary Care Provider] - Diet: Regular and Heart Healthy [facility] Attending Provider Instructions: Follow-up with Dr. Reji Stockton (orthopedic surgeon) in 2 weeks [facility] [employer] Supervisor Provider Instructions: Orthopedic instructions: You were seen by Dr. Reji Stockton with [facility] orthopedics. Weightbearing as tolerated on the right hip. Follow-up with [facility] orthopedics in about 2 weeks for repeat x-rays to ensure there is been no movement of the prosthesis or displacement of the fracture. Please call the office to make an appointment for a time that works for you. [phone]. Pending Studies at Discharge: No Stand-Alone Forms: My [facility] Skilled Items Patient informed of condition?: Yes DNR: Yes Discharge Level of Care: Skilled Communicable Disease: No Discharge Prognosis: Stable Lines: None Urinary Catheter: Yes Medications and DC Order Prescriptions: New sertraline 50 mg Tablet 50 mg PO HS Qty: 0 0RF quetiapine 25 mg Tablet 25 mg PO BID Qty: 0 0RF Continued (DME) BD SafetyGlide Syringe 3 mL 25 x 5/8" syringe See Rx Instructions .ROUTE .MEDSUPPLY Qty: 10 6RF Rx Instructions: As directed memantine 10 mg tablet 10 mg PO BID Qty: 60 11RF acetaminophen [Tylenol Extra Strength] 500 mg tablet 500 mg PO Q6H PRN (Reason: Fever Or Pain) hydroxyurea [Hydrea] 500 mg capsule 500 mg PO 5XWK Rx Instructions: TAKES THURSDAY THROUGH THURSDAY @ HS. cyanocobalamin (vitamin B-12) [Vitamin B-12] 1,000 mcg Tablet 1,000 mcg PO DAILY cholecalciferol (vitamin D3) [Vitamin D3] 25 mcg (1,000 unit) Tablet 12.5 mcg PO DAILY cyanocobalamin (vitamin B-12) 1,000 mcg/mL solution 1,000 mcg subcut MONTHLY Rx Instructions: 1,000 mcg subcutaneously ONCE A MONTH. Discontinued sertraline 25 mg tablet 25 mg PO DAILY Qty: 30 5RF Discharge Orders: Discharge Order (Routine); Ordered 11/28/22 Ordered By: Roger Jacobs Admission Data Admit Date/Time: 11/24/22 16:14 Attending Provider: Roger Jacobs Admit Provider: Michael Kelley Primary Care Provider: Shaniqua Price Other Providers: Michael Kelley ; Reji Stockton ; Jaydon Luciano [facility] Coding Level of Care Code 14378 INP/OBS DISCH >30 MIN Diagnoses Periprosthetic hip fracture M97.8XXA; Z96.649 Dementia F03.90 Zenkers diverticulum K22.5 Hypertension I10 CKD (chronic kidney disease) stage 3, GFR 30-59 ml/min N18.3
[2022-11-28] MEDS: HEPARIN SOD 5,000 UNIT/0.5 ML VIAL SQ SCH (09:14)
[2022-11-28] MEDS: MEMANTINE HCL 10 MG TAB PO SCH (09:16)
[2022-11-28] MEDS: QUEtiapine FUMARATE 25 MG TABLET PO SCH (09:16)
[2022-11-28] MEDS: ACETAMINOPHEN 325 MG TAB PO PRN (10:07)
== END 2022-11-28 10:54 | DRG 543 ==
LOC: ED 11:35 → 3E 16:14 → SUATTDRO 16:14 → 3E 18:00

== ENCOUNTER 2023-07-13 17:36 | Observation (INO) ==
--- NOTE | 2023-07-13 17:42 | ED Triage Note ---
Date of Service July 13, 2023 Provider in Triage Author: Cyril oTdd A History of Present Illness This patient was briefly evaluated while in triage. An abbreviated physical exam was performed. This patient is a 88-year-old Female who presents to the ED for evaluation of SOB. Presents with Daughter who provides most of the history. Tested positive for COVID yesterday. Hx dementia that seems worse the last 2 days. Physical Exam Limited Triage Exam: VITALS: Vitals are noted on the nurse's note and reviewed by myself. Vital signs stable. GENERAL: Elderly white female in a wheel chair. HEART: Regular rate and rhythm without murmurs gallops or rubs. LUNGS: Generally clear with some scattered rhonchi at right base NEURO: CN II through XII grossly intact. Initial orders for labs and / or imaging were placed and patient was placed in the waiting area until a bed is available. Please see further documentation for the full ED course. MDM / Impression Impression Impression: AMS (altered mental status), Generalized weakness, COVID-19
--- NOTE | 2023-07-13 18:28 | XRay Report ---
SINGLE VIEW CHEST CLINICAL HISTORY: Dyspnea. Covid. FINDINGS: 2 AP, portable, semierect chest radiographs are compared to study dated 05/09/2022. Correla tion is made with chest CT dated 11/24/2022. The examination is degraded by portable technique and pat ient rotation. The heart is normal for projection. There is a large hiatal hernia. Chronic interstiti al thickening is similar to previous. There is a small chronic left pleural effusion as well as bibas ilar scarring/atelectasis. No airspace consolidation is seen typical for pneumonia. No pneumothorax i s identified. The skeletal structures are osteopenic. The bony thorax is grossly intact. Degenerative change change is noted in the thoracic spine. IMPRESSION: 1. Small chronic left pleural effusion. 2. Large hiatal hernia. ACT 112: Negative or not required by law. Electronically signed by: Maximo Crowley M.D. 07/13/2023 6:26 PM
[2023-07-13 18:51] LABS: Basophils # (auto) 0.01 K/uL (0.00-0.20); Basophils % (auto) 0.2 %; Eosinophils # (auto) 0.03 K/uL (0.00-0.50); Eosinophils % (auto) 0.6 %; Hematocrit (blood only) 41.6 % (37.0-47.0); Hemoglobin 13.5 g/dl (12.0-16.0); Immature Granulocytes # (auto) 0.01 K/uL (0.01-0.20); Immature Granulocytes % (auto) 0.2 %; Lymphocytes # (auto) 0.81 K/uL (1.20-3.40); Lymphocytes % (auto) 16.9 %; Mean Corpuscular Hemoglobin 37.4 pg (25.0-34.0); Mean Corpuscular Hgb Conc 32.5 g/dL (32.0-36.0); Mean Corpuscular Volume 115.2 fL (80.0-100.0); Mean Platelet Volume 9.8 fL (9.4-12.4); Monocytes # (auto) 0.32 K/uL (0.11-0.59); Monocytes % (auto) 6.7 %; Neutrophils % (auto) 75.4 %; Platelet Count 347 K/uL (130-400); RDW Coefficient of Variation 14.8 % (11.5-14.5); RDW Standard Deviation 63.9 fL (36.4-46.3); Red Blood Count 3.61 M/uL (4.20-5.40); White Blood Count 4.78 K/ul (4.8-10.8)
[2023-07-13 19:04] LABS: Adenovirus PCR Not Detected (NotDetected); Bordetella parapertussis PCR Not Detected (NotDetected); Bordetella pertussis PCR Not Detected (NotDetected); Chlamydia pneumoniae PCR Not Detected (NotDetected); Coronavirus 229E PCR Not Detected (NotDetected); Coronavirus HKU1 PCR Not Detected (NotDetected); Coronavirus NL63 PCR Not Detected (NotDetected); Coronavirus OC43PCR Not Detected (NotDetected); Human Metapneumovirus PCR Not Detected (NotDetected); Influenza A PCR Not Detected (NotDetected); Influenza B PCR Not Detected (NotDetected); Mycoplasma pneumoniae PCR Not Detected (NotDetected); Parainfluenza Virus 1 PCR Not Detected (NotDetected); Parainfluenza Virus 2 PCR Not Detected (NotDetected); Parainfluenza Virus 3 PCR Not Detected (NotDetected); Parainfluenza Virus 4 PCR Not Detected (NotDetected); Respiratory Syncytial VirusPCR Not Detected (NotDetected); Rhinovirus/Enterovirus PCR Not Detected (NotDetected)
[2023-07-13 19:05] LABS: Troponin I High Sensitivity 4.1 pg/ml (0-14)
[2023-07-13 19:07] LABS: Coronavirus CoV-2 (COVID19)PCR DETECTED (NotDetected)
[2023-07-13 19:13] LABS: Macrocytosis Present
--- NOTE | 2023-07-13 19:26 | Emergency Department Note ---
Impression & Plan AMS (altered mental status), Generalized weakness, COVID-19 ED Provider Note ED Provider Note NAME: DIMITRI MILLAN AGE:88 SEX: Female : 1935 ARRIVES VIA: private vehicle INFORMANT: family ED PROVIDER(s): Carla Lechuga DO CHIEF COMPLAINT: weakness, hallucinations, decreased intake, COVID HPI: This is an 88-year-old female with a history of dementia who lives with family who presents due to family concern for increased weakness, decreased oral intake, increased confusion and hallucinations. Daughter came back from recently with COVID. They state that yesterday patient slept most of the day, was more confused than normal with increase hallucinations. pPtient home test for COVID positive last night. Family concerned today due to decreased intake and worsening hallucinations. No change in stools, typically loose, no blood noted. Dysphagia hx - uses thickened liquids and pureed diet. Family noted increased "gurgling" in chest and increased WOB this afternoon. She does have nasal congestion/rhinorrhea, however minimal cough. No overt vomiting. No other history of pulmonary problems. Patient has had hallucinations previously due to her history of dementia, however they have been worse with her acute illness. PAST MEDICAL HISTORY:See Below PAST SURGICAL HISTORY:See Below FAMILY HISTORY:See Below SOCIAL HISTORY:See Below HOME MEDICATIONS:See Below ALLERGIES:See Below VITALS:See Below PHYSICAL EXAMINATION: GENERAL: alert, well appearing, thin appearing, no distress, non-toxic EYE EXAM: normal conjunctiva, PERRL and EOM's grossly intact OROPHARYNX: no exudate, no erythema, lips, buccal mucosa, and tongue normal and mucous membranes are moist NECK: supple, no nuchal rigidity, no adenopathy, non-tender LUNGS: Clear to auscultation. Normal chest wall mechanics, no w/r, rhonchi noted at right base posteriorly; no increased WOB HEART: no murmurs, S1 normal and S2 normal ABDOMEN: abdomen soft, non-tender, normo-active bowel sounds, no masses, no rebound or guarding. BACK: Back is symmetrical on inspection and there is no deformity, no midline tenderness, no CVA tenderness. Kyphoscoliosis noted. SKIN: no rashes, petechiae, orbruising UPPER EXTREMITIES: upper extremities are grossly normal. FROM, nml pulses b/l. LOWER EXTREMITIES: No pitting edema. FROM, nml pulses b/l. NEURO EXAM: Pleasantly confused, cranial nerves II-XII grossly intact, normal speech, no facial droop,nogross weakness of arms, no gross weakness of legs. Gross sensation intact. No ataxia. Vital Signs: reviewed and remarkable Differential Diagnosis: dehydration, stroke, anemia, hypoglycemia, hyponatremia, hypernatremia, urinary tract infection, pneumonia, bronchitis, sepsis, gastroenteritis, additional abdominal pathology, metabolic abnormalities, as well as others were considered MEDICAL DECISION MAKING: This is an 88-year-old female who presents with family due to concern for increased difficulty breathing, acute COVID-positive illness, increased confusion and decreased oral intake in the setting of patient's dementia and history of dysphagia. Patient was afebrile and vital signs stable, no increased work of breathing or adventitious lung sounds noted. Patient initially seen in a triage waiting room area she presented on day of high volume and acuity. Labs drawn and sent, IV established, EKG and chest ray performed bedside interpreted by me and once available patient placed in a monitored patient room. Patient started on IV fluids due to decreased intake and likely underlying dehydration and family did report she seemed more alert following this. She was given a breathing treatment additionally. Due to concern for additional supportive requirements that they cannot provide at home and patient's complicated history including her dementia, case was discussed with the hospitalist team for additional evaluation and management. Consultation(s): [] ER Treatment Provided: See below Diagnostics Interpreted By Me: -ECG: Normal sinus at 85, normal axis, normal intervals, nonspecific ST/T wave changes, aberrant baseline noted -Cardiac Monitoring: An order was placed for continuous cardiac monitoring. The monitor shows a rate of 80 with normal sinus rhythm. -Laboratory studies: As stated above and show below. -Imaging studies: X-ray Chest: A single view study of the chest was reviewed and was negative for cardiomegaly, focal infiltrate, effusion, pulmonary edema, or wide mediastinum. Triage Nursing Note Reviewed Prior/Outside Records Reviewed -prior discharge summary noted Past Med/Surg History Medical History (Updated 07/14/23 @ 00:19 by Bekah Sanabria DO) Hypertension History of vertebral compression fracture T12 History of fracture of femur displaced fx of rt femoral neck History of fracture Coccyx Dementia Zenkers diverticulum Back pain Osteoporosis CKD (chronic kidney disease) stage 3, GFR 30-59 ml/min Osteoarthritis Hiatal hernia Meniere disease Hyperlipidemia Wrist fracture, bilateral Closed fracture of both ankles Vertigo Surgical History History of right hip hemiarthroplasty (~05/2019) History of open reduction and internal fixation (ORIF) procedure rt/left arm (s/p fx after falling) History of colonoscopy History of appendectomy History of cataract surgery Family History Father , age 71 of an [place] Myocardial infarction Mother , age 88 with dementia Dementia Denies family history of Ovarian cancer Prostate cancer Breast cancer Colorectal cancer Social History Smoking Status: Never smoker Second Hand Exposure: No; Do You Dip or Chew Tobacco: No; Hx Alcohol Use: No Hx Substance Use: No Preferred Language: Polish Communication Ability: Effective Communication Ability Comment: Dementia Visual Impairment: No Limitations Hearing Ability: Normal Employee Communications Intern Required: No Beliefs That Will Affect Care: None marital status: Current Living Situation: Family Current Living Situation Comment: Lives at home with daughter current occupational status: retired 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 [employer] How many Children do You have: 2 Other Information That Helps Us Care for You: No Feels Safe at Home: Yes Safety Concerns: Feels Safe At This Time Childhood Exposure to Second-Hand Smoke: No Diet: regular Diet Comment: regular during the past year weight has: decreased > 10 lbs Dental Care, Regularly: Yes Physical Activity Frequency: Does not Exercise Seatbelt Use: always Sunscreen Use: Yes Assistive Devices: Glasses and Walker Allergies Allergies Allergy/AdvReac Type Severity Reaction Status Date / Time Sulfa (Sulfonamide Allergy Intermediate Hives Verified 07/13/23 20:54 Antibiotics) [id number] Reductase AdvReac Severe ELAVATION Verified 07/13/23 20:54 Inhibitor OF LFTS [Mvtvnde-Gue-Wgs Reductase Inhibitor] Home Meds Home Medications Medication Instructions Recorded Confirmed cyanocobalamin (vitamin B-12) 1,000 mcg PO DAILY 11/24/22 07/13/23 1,000 mcg tablet (Vitamin B-12) cholecalciferol (vitamin D3) 25 25 mcg PO DAILY 12/30/22 07/13/23 mcg (1,000 unit) tablet (Vitamin D3) sennosides 8.6 mg capsule (senna) 8.6 mg PO DAILY PRN constipation 01/05/23 07/13/23 hydroxyurea 500 mg capsule See Rx Instructions .Route .COMPLEX 07/13/23 07/13/23 Previous Rx's Medication Instructions Recorded cyanocobalamin (vitamin B-12) 1,000 mcg subcut MONTHLY #1 mL 02/23/23 1,000 mcg/mL injection solution syringe with needle 3 mL 25 x 5/8" #10 ea 02/25/23 (BD SafetyGlide Syringe) memantine 10 mg tablet 10 mg PO BID 90 days #180 tabs 04/10/23 quetiapine 25 mg tablet 25 mg PO HS #30 tabs 06/23/23 sertraline 25 mg tablet 50 mg (2 x 25 mg) PO HS #90 tabs 07/08/23 molnupiravir 200 mg capsule (EUA) 800 mg (4 x 200 mg) PO Q12H 5 days 07/13/23 (Lagevrio) #40 caps Results & Data (ED) Vital Signs Vital Signs - 24 hr 07/13/23 17:41 07/13/23 20:15 07/13/23 20:20 Temperature 37.3 C Temperature Source Temporal Artery Scan Pulse Rate 82 78 Pulse Rate [Apical] Pulse Rate from SpO2 Sensor Pulse Rhythm Regular Pulse Rhythm [Apical] Pulse Strength Normal Pulse Strength [Apical] Respiratory Rate 20 28 H Respiratory Effort / Characteristics Non-Labored Spontaneous Respiratory Depth Normal Respiratory Pattern Regular Blood Pressure 127/72 135/77 Blood Pressure [Right Arm] Blood Pressure Mean 90 96 Blood Pressure Mean [Right Arm] Blood Pressure Position Sitting Pulse Oximetry 96 95 Oxygen Delivery Method Room Air Room Air Sepsis Recent Fever Within 48 Hours No Sepsis New/Unexplained Change in Mental Status No Sepsis Action Taken by Nursing No Action Required 07/13/23 20:20 07/13/23 20:20 07/13/23 20:30 Temperature Temperature Source Pulse Rate 82 77 Pulse Rate [Apical] 79 Pulse Rate from SpO2 Sensor 77 Pulse Rhythm Regular Pulse Rhythm [Apical] Regular Pulse Strength Pulse Strength [Apical] Normal Respiratory Rate 24 24 19 Respiratory Effort / Characteristics Non-Labored Respiratory Depth Normal Respiratory Pattern Blood Pressure 141/76 H Blood Pressure [Right Arm] 135/77 Blood Pressure Mean 97 Blood Pressure Mean [Right Arm] 96 Blood Pressure Position Pulse Oximetry 97 100 91 Oxygen Delivery Method Room Air Room Air Sepsis Recent Fever Within 48 Hours Sepsis New/Unexplained Change in Mental Status Sepsis Action Taken by Nursing 07/13/23 20:45 07/13/23 21:30 Temperature Temperature Source Pulse Rate 83 90 Pulse Rate [Apical] Pulse Rate from SpO2 Sensor Pulse Rhythm Pulse Rhythm [Apical] Pulse Strength Pulse Strength [Apical] Respiratory Rate 25 H 32 H Respiratory Effort / Characteristics Respiratory Depth Respiratory Pattern Blood Pressure 141/76 H Blood Pressure [Right Arm] Blood Pressure Mean 97 Blood Pressure Mean [Right Arm] Blood Pressure Position Pulse Oximetry 98 93 Oxygen Delivery Method Sepsis Recent Fever Within 48 Hours Sepsis New/Unexplained Change in Mental Status Sepsis Action Taken by Nursing Laboratory Data 07/13/23 18:03 07/13/23 18:03 Lab Results 07/13/23 07/13/23 Range/Units 18:01 18:03 WBC 4.78 L (4.8-10.8) K/ul RBC 3.61 L (4.20-5.40) M/uL Hgb 13.5 (12.0-16.0) g/dl Hct 41.6 (37.0-47.0) % MCV 115.2 H (80.0-100.0) fL MCH 37.4 H (25.0-34.0) pg MCHC 32.5 (32.0-36.0) g/dL RDW Std Deviation 63.9 H (36.4-46.3) fL RDW Coeff of Vanna 14.8 H (11.5-14.5) % Plt Count 347 (130-400) K/uL MPV 9.8 (9.4-12.4) fL Immature Gran % (Auto) 0.2 % Neut % (Auto) 75.4 % Lymph % (Auto) 16.9 % [place] % (Auto) 6.7 % Eos % (Auto) 0.6 % Baso % (Auto) 0.2 % Neut # (Auto) 3.60 (1.40-6.50) K/uL Lymph # (Auto) 0.81 L (1.20-3.40) K/uL [place] # (Auto) 0.32 (0.11-0.59) K/uL Eos # (Auto) 0.03 (0.00-0.50) K/uL Baso # (Auto) 0.01 (0.00-0.20) K/uL Immature Gran # (Auto) 0.01 (0.01-0.20) K/uL Macrocytosis Present Sodium 142 (136-145) mmol/L Potassium 4.4 (3.5-5.1) mmol/L Chloride 106 (98-107) mmol/L Carbon Dioxide 25 (21-32) mmol/L Anion Gap 11 (3-11) BUN 27 H (6-23) mg/dl Creatinine 0.95 (0.6-1.2) mg/dl Est Cr Clr Drug Dosing 27.9 ml/min Est GFR ( Amer) 61.5 ml/min Est GFR (Non-Af Amer) 53.1 ml/min BUN/Creatinine Ratio 28.4 H (10-20) Glucose 97 (70-99(Fasting)) mg/dl Calcium 9.7 (8.6-10.3) mg/dl Phosphorus 3.3 (2.5-4.9) mg/dl Magnesium 1.9 (1.7-2.4) mg/dl Total Bilirubin 0.6 (0.2-1.0) mg/dl AST 27 (13-39) U/L ALT 22 (7-52) U/L Alkaline Phosphatase 71 (34-104) U/L Troponin I High Sens 4.1 (0-14) pg/ml Total Protein 7.3 (6.0-8.3) gm/dl Albumin 4.2 (3.4-5.0) gm/dl Globulin 3.1 (2.5-4.0) gm/dl Albumin/Globulin Ratio 1.4 (0.9-2) Adenovirus (PCR) Not Detected (NotDetected) B. pertussis DNA (PCR) Not Detected (NotDetected) B.parapertussis DNA PCR Not Detected (NotDetected) C. pneumoniae DNA (PCR) Not Detected (NotDetected) Coronavirus OC43 (PCR) Not Detected (NotDetected) Coronavirus HKU1 (PCR) Not Detected (NotDetected) Coronavirus 229E (PCR) Not Detected (NotDetected) SARS-CoV-2 (PCR) DETECTED A* (NotDetected) Coronavirus NL63 (PCR) Not Detected (NotDetected) Human Metapneumovir PCR Not Detected (NotDetected) Influenza Type A (PCR) Not Detected (NotDetected) Influenza Type B (PCR) Not Detected (NotDetected) M. pneumoniae (PCR) Not Detected (NotDetected) Parainfluenza 1 (PCR) Not Detected (NotDetected) Parainfluenza 2 (PCR) Not Detected (NotDetected) Parainfluenza 3 (PCR) Not Detected (NotDetected) Parainfluenza 4 (PCR) Not Detected (NotDetected) RSV (PCR) Not Detected (NotDetected) Entero/Rhino (PCR) Not Detected (NotDetected) Administered Medications Discontinued Medications Albuterol (Albut/Ipratrop 3mg/0.5mg Neb 3 Ml Vial) 3 ml NEB NOW STA; Protocol Stop: 07/13/23 20:57 Last Admin: 07/13/23 21:08 Dose: 3 ml Documented By: MALU Sodium Chloride (Nss) 1,000 mls @ 125 mls/hr IV .Q8H HANDY Stop: 08/12/23 19:29 Last Infusion: 07/13/23 23:49 Dose: Infused Documented By: Admin: 07/13/23 19:41 Dose: 125 mls/hr Documented By: ANG Memantine (Memantine Hcl 10 Mg Tab) 10 mg PO NOW STA Stop: 07/13/23 21:44 Last Admin: 07/13/23 22:08 Dose: 10 mg Documented By: MALU Quetiapine Fumarate (Quetiapine Fumarate 25 Mg Tablet) 25 mg PO NOW STA Stop: 07/13/23 19:17 Last Admin: 07/13/23 19:45 Dose: 25 mg Documented By: ANG Sertraline HCl (Sertraline Hcl 50 Mg Tablet) 50 mg PO NOW ONE Stop: 07/13/23 19:17 Last Admin: 07/13/23 19:45 Dose: 50 mg Documented By: ANG Imaging Data Radiologist's Impression: Chest X-Ray 07/13/23 17:42 SINGLE VIEW CHEST CLINICAL HISTORY: Dyspnea. Covid. FINDINGS: 2 AP, portable, semierect chest radiographs are compared to study dated 05/09/2022. Correlation is made with chest CT dated 11/24/2022. The examination is degraded by portable technique and patient rotation. The heart is normal for projection. There is a large hiatal hernia. Chronic interstitial thickening is similar to previous. There is a small chronic left pleural effusion as well as bibasilar scarring/atelectasis. No airspace consolidation is seen typical for pneumonia. No pneumothorax is identified. The skeletal structures are osteopenic. The bony thorax is grossly intact. Degenerative change change is noted in the thoracic spine. IMPRESSION: 1. Small chronic left pleural effusion. 2. Large hiatal hernia. ACT 112: Negative or not required by law. Electronically signed by: Maximo Crowley M.D. 07/13/2023 6:26 PM Discharge Plan Visit Data Chief Complaint: Shortness of Breath/Dyspnea Stated Complaint: COVID, LABORED BREATHING ED Provider: Carla Lechuga Discharge Problem: AMS (altered mental status), Generalized weakness, COVID-19 Patient Disposition: Admitted As Inpatient Discharge Instructions Interventions: ED Discharge Assessment Last Done: 07/13/23 23:02
[2023-07-13] MEDS: SODIUM CHLORIDE 0.9% 1,000 ML IV SCH (19:41)
[2023-07-13] MEDS: QUEtiapine FUMARATE 25 MG TABLET PO STA (19:45)
[2023-07-13] MEDS: SERTRALINE HCL 50 MG TABLET PO ONE (19:45)
[2023-07-13] MEDS: ALBUT/IPRATROP 3MG/0.5MG NEB 3 ML VIAL NEB STA (21:08)
--- NOTE | 2023-07-13 21:44 | History & Physical Report ---
Date of Service July 13, 2023 Assessment & Plan (1) COVID-19: Plan: 88 yo female with history of HTN, HLP, CKD and Dementia presenting from home with one day of cough, weakness, fatigue and worsening confusion. Patient tested POSITIVE on a home Covid-19 test yesterday 07/13/23. She has never had Covid before and is up to date with her vaccinations. Saturations are adequate on room air. No respiratory distress. -Admit to medical -Maintain isolation precautions -Monitor respiratory status - no indication for treatment with Remdesivir or Dexamethasone at this time as oxygenation has been adequate on RA -Tylenol PRN -Guaifenesin PRN (2) Dementia: Plan: Patient with underlying dementia with acute metabolic encephalopathy as well secondary to Covid-19 infection. -Frequent orientation -Fall precautions -Continue Memantine -Continue Seroquel -Continue Sertraline F/E/N - Saline lock. Electroltyes WNL. Regular diet/Pureed with honey thick liquids and aspiration precautions Ppx - Lovenox 30mg SQ daily for DVT prophylaxis Code - DNR/DNI per discussion with family Dispo - Observation to medical History of Present Illness Chief Complaint: Covid-19 Primary Care Provider: Shaniqua Price MD Natasha Ramos is an 88yo female with history of HTN, HLP, CKD and Dementia presenting from home with Covid-19 infection. Patient's daughters are at bedside and offer history. Yesterday 07/12/23 patient developed fatigue, worsening confusion, generalized weakness, poor appetite and inability to stand or ambulate. She also has had a dry cough and "raspy breathing" which has progressed througout the day today. She did test POSITIVE for Covid-19 on a home test yesterday 07/13/23. Patient has become more confused throughout the day with grasping at things in the air as well as hallucinating and conversing with people that aren't there. Daughters state that at baseline patient is able to sit up and feed herself as well as ambulate with a walker. In the ER she is afebrile, HD stable. NO hypoxia. Allergies Allergy/AdvReac Type Severity Reaction Status Date / Time Sulfa (Sulfonamide Allergy Intermediate Hives Verified 07/13/23 20:54 Antibiotics) [id number]-NDE-ItJ Reductase AdvReac Severe ELAVATION Verified 07/13/23 20:54 Inhibitor OF LFTS [Vmsmcau-Pnz-Pqf Reductase Inhibitor] Home Medications Medication Instructions Recorded Confirmed Type cyanocobalamin (vitamin B-12) 1,000 mcg PO DAILY 11/24/22 07/13/23 History 1,000 mcg tablet (Vitamin B-12) cholecalciferol (vitamin D3) 25 25 mcg PO DAILY 12/30/22 07/13/23 History mcg (1,000 unit) tablet (Vitamin D3) sennosides 8.6 mg capsule (senna) 8.6 mg PO DAILY PRN constipation 01/05/23 07/13/23 History cyanocobalamin (vitamin B-12) 1,000 mcg subcut MONTHLY #1 mL 02/23/23 07/13/23 Rx 1,000 mcg/mL injection solution syringe with needle 3 mL 25 x 5/8" #10 ea 02/25/23 07/13/23 Rx (BD SafetyGlide Syringe) memantine 10 mg tablet 10 mg PO BID 90 days #180 tabs 04/10/23 07/13/23 Rx quetiapine 25 mg tablet 25 mg PO HS #30 tabs 06/23/23 07/13/23 Rx sertraline 25 mg tablet 50 mg (2 x 25 mg) PO HS #90 tabs 07/08/23 07/13/23 Rx hydroxyurea 500 mg capsule See Rx Instructions .Route .COMPLEX 07/13/23 07/13/23 History molnupiravir 200 mg capsule (EUA) 800 mg (4 x 200 mg) PO Q12H 5 days 07/13/23 07/13/23 Rx (Lagevrio) #40 caps Past Med/Surg History Medical History (Updated 07/14/23 @ 00:19 by Bekah Sanabria DO) Hypertension History of vertebral compression fracture T12 History of fracture of femur displaced fx of rt femoral neck History of fracture Coccyx Dementia Zenkers diverticulum Back pain Osteoporosis CKD (chronic kidney disease) stage 3, GFR 30-59 ml/min Osteoarthritis Hiatal hernia Meniere disease Hyperlipidemia Wrist fracture, bilateral Closed fracture of both ankles Vertigo Surgical History History of right hip hemiarthroplasty (~05/2019) History of open reduction and internal fixation (ORIF) procedure rt/left arm (s/p fx after falling) History of colonoscopy History of appendectomy History of cataract surgery Family History Father , age 71 of an PA Myocardial infarction Mother , age 88 with dementia Dementia Denies family history of Ovarian cancer Prostate cancer Breast cancer Colorectal cancer Social History Smoking Status: Never smoker Second Hand Exposure: No; Do You Dip or Chew Tobacco: No; Hx Alcohol Use: No Hx Substance Use: No Preferred Language: Chinese Communication Ability: Effective Communication Ability Comment: Dementia Visual Impairment: No Limitations Hearing Ability: Normal 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 Beliefs That Will Affect Care: None marital status: Current Living Situation: Family Current Living Situation Comment: Lives at home with daughter current occupational status: retired 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 [employer] How many Children do You have: 2 Other Information That Helps Us Care for You: No Feels Safe at Home: Yes Safety Concerns: Feels Safe At This Time Childhood Exposure to Second-Hand Smoke: No Diet: regular Diet Comment: regular during the past year weight has: decreased > 10 lbs Dental Care, Regularly: Yes Physical Activity Frequency: Does not Exercise Seatbelt Use: always Sunscreen Use: Yes Assistive Devices: Glasses and Walker Review of Systems Review of Systems: Unobtainable due to cognitive status Physical Exam Physical Exam: General: frail, elderly female resting in bed, restless, picking at blankets, does not answer questions, is following simple commands Skin: warm, dry, intact, no rashes or lesions HEENT: NC/AT, PERRL, EOMI, anicteric sclera, conjunctiva without injection, external ear normal to inspection and nontender, nares patent, moist mucus membranes, dentition intact, no oropharyngeal lesions, neck supple, trachea midline, no LAD, no thyromegaly, no JVD Heart: +S1/S2, regular, no m/r/g Lungs: equal air entry bilaterally, no rales/rhonchi/wheezes Abd: +BS, soft, NT/ND, no masses/organomegaly/ascites Ext: warm, 2+ pulses in UE/LE bilaterally, no clubbing/cyanosis or edema Neuro: grossly nonfocal Results & Data Results & Data Vital Signs (Past 12 Hours) Vital Signs Temp Pulse Pulse Resp BP BP Pulse Ox 07/13/23 20:45 83 25 H 141/76 H 98 07/13/23 20:30 77 19 141/76 H 91 07/13/23 20:20 82 24 100 07/13/23 20:20 79 24 135/77 97 07/13/23 20:20 95 07/13/23 20:15 78 28 H 135/77 07/13/23 17:41 37.3 C 82 20 127/72 96 O2 Del Method 07/13/23 20:45 07/13/23 20:30 07/13/23 20:20 Room Air 07/13/23 20:20 Room Air 07/13/23 20:20 Room Air 07/13/23 20:15 07/13/23 17:41 Room Air Laboratory Results Laboratory Results WBC 4.78 K/ul (4.8-10.8) L 07/13/23 18:03 RBC 3.61 M/uL (4.20-5.40) L 07/13/23 18:03 Hgb 13.5 g/dl (12.0-16.0) 07/13/23 18:03 Hct 41.6 % (37.0-47.0) 07/13/23 18:03 MCV 115.2 fL (80.0-100.0) H 07/13/23 18:03 MCH 37.4 pg (25.0-34.0) H 07/13/23 18:03 MCHC 32.5 g/dL (32.0-36.0) 07/13/23 18:03 RDW Std Deviation 63.9 fL (36.4-46.3) H 07/13/23 18:03 RDW Coeff of Vanna 14.8 % (11.5-14.5) H 07/13/23 18:03 Plt Count 347 K/uL (130-400) 07/13/23 18:03 MPV 9.8 fL (9.4-12.4) 07/13/23 18:03 Immature Gran % (Auto) 0.2 % 07/13/23 18:03 Neut % (Auto) 75.4 % 07/13/23 18:03 Lymph % (Auto) 16.9 % 07/13/23 18:03 Smith % (Auto) 6.7 % 07/13/23 18:03 Eos % (Auto) 0.6 % 07/13/23 18:03 Baso % (Auto) 0.2 % 07/13/23 18:03 Neut # (Auto) 3.60 K/uL (1.40-6.50) 07/13/23 18:03 Lymph # (Auto) 0.81 K/uL (1.20-3.40) L 07/13/23 18:03 Smith # (Auto) 0.32 K/uL (0.11-0.59) 07/13/23 18:03 Eos # (Auto) 0.03 K/uL (0.00-0.50) 07/13/23 18:03 Baso # (Auto) 0.01 K/uL (0.00-0.20) 07/13/23 18:03 Immature Gran # (Auto) 0.01 K/uL (0.01-0.20) 07/13/23 18:03 Macrocytosis Present 07/13/23 18:03 Sodium 142 mmol/L (136-145) 07/13/23 18:03 Potassium 4.3 mmol/L (3.5-5.1) 07/13/23 18:03 Chloride 106 mmol/L (98-107) 07/13/23 18:03 Carbon Dioxide 25 mmol/L (21-32) 07/13/23 18:03 Anion Gap 11 (3-11) 07/13/23 18:03 BUN 28 mg/dl (6-23) H 07/13/23 18:03 Creatinine 0.91 mg/dl (0.6-1.2) 07/13/23 18:03 Est Cr Clr Drug Dosing Not Reportable 07/13/23 18:03 Est GFR ( Amer) 64.8 ml/min 07/13/23 18:03 Est GFR (Non-Af Amer) 55.9 ml/min 07/13/23 18:03 BUN/Creatinine Ratio 30.8 (10-20) H 07/13/23 18:03 Glucose 97 mg/dl (70-99(Fasting)) 07/13/23 18:03 Calcium 9.3 mg/dl (8.6-10.3) 07/13/23 18:03 Total Bilirubin 0.6 mg/dl (0.2-1.0) 07/13/23 18:03 AST 27 U/L (13-39) 07/13/23 18:03 ALT 23 U/L (7-52) 07/13/23 18:03 Alkaline Phosphatase 80 U/L (34-104) 07/13/23 18:03 Troponin I High Sens 4.1 pg/ml (0-14) 07/13/23 18:03 Total Protein 7.3 gm/dl (6.0-8.3) 07/13/23 18:03 Albumin 3.9 gm/dl (3.4-5.0) 07/13/23 18:03 Globulin 3.4 gm/dl (2.5-4.0) 07/13/23 18:03 Albumin/Globulin Ratio 1.1 (0.9-2) 07/13/23 18:03 Adenovirus (PCR) Not Detected (NotDetected) 07/13/23 18:01 B. pertussis DNA (PCR) Not Detected (NotDetected) 07/13/23 18:01 B.parapertussis DNA PCR Not Detected (NotDetected) 07/13/23 18:01 C. pneumoniae DNA (PCR) Not Detected (NotDetected) 07/13/23 18:01 Coronavirus OC43 (PCR) Not Detected (NotDetected) 07/13/23 18:01 Coronavirus HKU1 (PCR) Not Detected (NotDetected) 07/13/23 18:01 Coronavirus 229E (PCR) Not Detected (NotDetected) 07/13/23 18:01 SARS-CoV-2 (PCR) DETECTED (NotDetected) A* 07/13/23 18:01 Coronavirus NL63 (PCR) Not Detected (NotDetected) 07/13/23 18:01 Human Metapneumovir PCR Not Detected (NotDetected) 07/13/23 18:01 Influenza Type A (PCR) Not Detected (NotDetected) 07/13/23 18:01 Influenza Type B (PCR) Not Detected (NotDetected) 07/13/23 18:01 M. pneumoniae (PCR) Not Detected (NotDetected) 07/13/23 18:01 Parainfluenza 1 (PCR) Not Detected (NotDetected) 07/13/23 18:01 Parainfluenza 2 (PCR) Not Detected (NotDetected) 07/13/23 18:01 Parainfluenza 3 (PCR) Not Detected (NotDetected) 07/13/23 18:01 Parainfluenza 4 (PCR) Not Detected (NotDetected) 07/13/23 18:01 RSV (PCR) Not Detected (NotDetected) 07/13/23 18:01 Entero/Rhino (PCR) Not Detected (NotDetected) 07/13/23 18:01 Impressions Chest X-Ray 07/13/23 17:42 SINGLE VIEW CHEST CLINICAL HISTORY: Dyspnea. Covid. FINDINGS: 2 AP, portable, semierect chest radiographs are compared to study dated 05/09/2022. Correlation is made with chest CT dated 11/24/2022. The examination is degraded by portable technique and patient rotation. The heart is normal for projection. There is a large hiatal hernia. Chronic interstitial thickening is similar to previous. There is a small chronic left pleural effusion as well as bibasilar scarring/atelectasis. No airspace consolidation is seen typical for pneumonia. No pneumothorax is identified. The skeletal structures are osteopenic. The bony thorax is grossly intact. Degenerative change change is noted in the thoracic spine. IMPRESSION: 1. Small chronic left pleural effusion. 2. Large hiatal hernia. ACT 112: Negative or not required by law. Electronically signed by: Maximo Crowley M.D. 07/13/2023 6:26 PM Code Status & VTE Plan VTE Prophylaxis Plan VTE Prophylaxis will be ordered: Yes PG Care Time/CCT Total # of Minutes Spent Total Time Spent with Patient: Total time spent is greater than 50% in coordination of care (as documented) at patient's floor/unit and/or counseling patient: Coding Level of Care Code 52710 INT INP/OBS CARE 2/55MIN Diagnoses COVID-19 U07.1 Dementia F03.90
[2023-07-13] MEDS: MEMANTINE HCL 10 MG TAB PO STA (22:08)
[2023-07-13] MEDS ORDERED: guaiFENesin SUGAR FREE 100 MG/5 ML UDC PO PRN (23:40)
[2023-07-13] MEDS ORDERED: ONDANSETRON INJ 2 MG/ML 2 ML VIAL IV PRN (23:40)
[2023-07-13] MEDS ORDERED: ACETAMINOPHEN 325 MG TAB PO PRN (23:40)
[2023-07-14 01:17] LABS: Albumin Globulin Ratio 1.4 (0.9-2); Albumin Level 4.2 gm/dl (3.4-5.0); Bilirubin,Total 0.6 mg/dl (0.2-1.0); Calcium 9.7 mg/dl (8.6-10.3); Globulin 3.1 gm/dl (2.5-4.0); Magnesium 1.9 mg/dl (1.7-2.4); Potassium 4.4 mmol/L (3.5-5.1)
[2023-07-14 01:23] LABS: BUN Creatinine Ratio 28.4 (10-20); Creatinine Clr Calc Pharmacy 27.9 ml/min; Est GFR (African American) 61.5 ml/min; Est GFR (Non-African American) 53.1 ml/min; Phosphorus 3.3 mg/dl (2.5-4.9); Total Protein 7.3 gm/dl (6.0-8.3)
--- OUTSIDE RECORDS SUMMARY | 2023-07-14 02:00 | External Medical Summary | Summary of Care ---
Author Name Unknown Organization [facility] Address [address] [place] [address] Phone [phone] Care Team Providers Care Hole Filler Name Role Phone Shaniqua Price MD Primary Care Provider Reason for Visit * Reason Comments Medication Management Encounter Details Date Type Department Care Team (Late st Contact Info) Description 07/07/2023 9:00 AM [facility] Pharmacy Pharmacy Hematology Oncology [facility] [address] [place], [place] [id number] [facility]c [address], [place] [id number] Essential thrombocythemia (HCC)* Allergies Active Allergy Reactions Criticality Noted Date Comments Statins 06/03/2011 Elevation in lfts Sulfa Antibiotics Edema face/lips/tongue High 2009 documented as of this encounter (statuses as of 07/06/2023) Medications Medication Sig Dispensed Refills Start Date End Date Status Cyanocobalamin 1000 MCG/ML Injection Solution (Cyanocobalamin) .COMPLEX 0 03/18/2022 Active B-12 1000 MCG Oral Tablet Take 1 Tablet by mouth in the morning. 0 Active Vitamin D 25 MCG (1000 UT) Oral Tablet Take 0.5 Tablets by mouth in the morning. 0 Active Acetaminophen 325 MG Oral Tablet (Tylenol) Take 2 Tablets by mouth in the morning. 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 15 Tablet 0 12/29/2022 Active Sertraline HCl 25 MG Oral Tablet (Zoloft)Indications:M oderate late onset Alzheimer's dementia with psychotic disturbance (HCC) Take 1 Tablet by mouth at bedtime. 30 Tablet 0 12/29/2022 Active Hydroxyurea 500 MG Oral Capsule (Hydrea)Indications:E ssential thrombocythemia (HCC) Take one 500mg cap by mouth two times per day on Thursday and one 500mg cap by mouth once daily all other days of the week 35 Capsule 3 05/06/2023 Active documented as of this encounter (statuses as of 07/06/2023) Active Problems Problem Noted Date Diagnosed Date Amanda-prosthetic fracture around prosthetic hip 0 12/04/2022 Closed wedge compression fra cture of fourth thoracic vertebra 12/04/2022 Closed stable burst fracture of T8 vertebra with delayed healing 12/04/2022 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 Pancreatic cyst 07/12/2020 Stage 3a chronic kidney disease 04/23/2020 Overview: Per CKD protocol Essential thrombocythemia 06/28/2018 Large hiatal hernia 11/24/2011 Statin intolerance 04/29/2011 Overview: Elevation lfts, aches Dyslipidemia, goal LDL below 160 03/03/2011 Osteoporosis 06/21/2010 Meniere's disease Overview: no salt in diet Chronic constipation documented as of this encounter (statuses as of 07/06/2023) Resolved Problems Problem Noted Date Diagnosed Date Resolved Date Patient left without being seen 02/12/2017 05/26/2018 Kidney disease, chronic, sta ge III (GFR 30-59 ml/min) 08/08/2013 04/26/2020 Overview: Per CKD protocol #1 Dyslipidemia, goal to be determined 04/01/2011 documented as of this encounter (statuses as of 07/06/2023) Immunizations Name Administration Dates Next Due Seasonal Influenza Virus Vac cine, Unspecified Formulation 2018 Seasonal Influenza, Quadrivalent Hd, 65+ Yrs ,07/05/2021 documented as of this encounter Social History Tobacco Use Types Packs/Day Years Used Date Smoking Tobacco: Never Smokeless Tobacco: Never Alcohol Use Standard Drinks/Week Comments Yes 0 (1 standard drink = 0.6 oz pur e alcohol) one drink three times a year PHQ-2 Answer Date Recorded PHQ-2 Score -1 03/04/2020 Hunger Vital Sign Answer Date Recorded Worried About Running Out of Food in the Last Ye ar Never true 05/30/2019 Ran Out of Food in the Last Year Never true 05/30/2019 Sex and Gender Information Value Date Recorded Sex Assigned at Not on file Gender Identity Not on file Sexual Orientation Not on file Job Start Date Occupation Industry Not on file Not on file Not on file documented as of this encounter Progress Notes * Nathalie Holt, [facility]ly [facility] - 07/06/2023 12:35 PM EST MEDICATION THERAPY MANAGEMENT HYDROXYUREA TREATMENT PROGRESS NOTE Natasha Li Ramos [phone] Patient Phone Numbers (daughter, Cher) GML: Communication: Left message Current Treatment: Medication: hydroxyurea Indication: ET Dose: 500mg BID Thu, 500mg daily AOD (DI 01/06/23) Start date: 07/20/18 Primary Ironer Sock: Dr. Eaton Is patient prescribed medication for Essential Thrombocythemia? Yes. IPSET- Thrombosis Risk Score: 3(age, WBC count) Interval History: Per OV 09/23/21, Pt s/p esophagoscopy w/diverticulectomy of hypopharynx on 09/10/21 (hydroxyurea held09/08/21-09/15/21) Per MyG 01/18/22, lab monitoring extended to monthly Per MyG 08/11/22, pt requests [facility] for lab monitoring but will only accept Thursday lab draws Pt admitted to [facility] from 11/24/22-11/28/22 for hip fracture and discharge to [facility] Per Ankita note 12/29/22, pt discharged to home 12/29/22 with home health and will continue weekly lab monitoring Pt has stage 6 dementia Changes to medication list since last visit? No Assessment and Plan: PLT at goal H/H improving All other labs stable Continue current hydrea dose and monthly labs via GML Dose adjustment needed based on lab or adverse drug reaction? No Follow up: 1 month Nathalie Holt, PharmD, BCOP Clinical Pharmacist, [facility] Oral Chemotherapy [facility] 07/06/2023, 12:38 PM Pertinent labs: Latest Reference Range & Units 05/25/23 11:57 06/11/23 11:29 07/06/23 10:05 WBC 4.00 - 10.80 K/uL 6.07 7.99 6.31 HGB 12.0 - 15.3 g/dL 11.6 (L) 12.0 12.1 HCT 36.0 - 45.2 % 36.2 37.3 38.2 MCV 81.5 - 97.5 fL 116.0 116.2 118.6 PLT 140 - 400 K/uL 326 402 (H) 311 Absolute Neutrophils 1.80 - 7.70 K/uL 4.41 6.12 4.86 Time Spent on Encounter: 6 - 10 minutes Encounter Group: Hematology Encounter Interventions Item Category: Oral Chemotherapy Hydroxurea Problem/Rationale: Effectiveness: Needs additional monitoring - Medication Requires monitoring Safety: Needs additional monitoring - Medication Requires monitoring Pharmacist Intervention(s): Care coordination and Lab monitoring Magnitude of Intervention: Monitoring with direction (Level 1) documented in this encounter Plan of Treatment Upcoming Encounters Date Type Department Care Team (Late st Contact Info) Description 08/04/2023 9:00 AM EST Pharmacy Pharmacy Hematology Oncology [facility] [address] [place] [address] [facility] [address] [place] [address] 11/04/2023 4:00 PM EDT Telemedicine Hematology/Oncology [facility] [place] [address] [place] [address] Lito Eaton MD [address] [place] [address] Health Maintenance Due Date Last Done Comments Pneumococcal Vaccine: 65+ Years (1 - PCV) 1941 DTaP,Tdap,and Td Vaccines (1 - Tdap) 1954 Zoster Vaccines (1 of 2) 1954 DXA Scan 06/21/2012 06/21/2010, 06/21/2010 Albumin/Creatinine Ratio 05/26/2019 05/26/2018, 01/13 Depression Screening 07/04/2020 07/04/2019 CKD PHOS USE SMARTSET 92390 02/05/202101/14, 08/01/2019, 05/26/2018, Additional history exists COVID-19 Vaccine ( season) 2023 09/17/2020, 08/20/2020, 08/20/2020 Influenza Vaccine (FLU shot) (#1) 2023 03/10/2022, 07/05/2021, 2018 CKD HGB USE SMARTSET 43290 07/06/202407/06, 07/06/2023, 06/11/2023, Additional history exists *BISPHONATE OR OTHER ACCEPTABLE MEDICATION NEEDED FOR OSTEOPOROSIS (REFER TO SMARTSET #1146) Addressed 01/01/2016 (Declined) Overridden w ith the intention of not completing the topic VITAMIN D LEVEL ONCE IN A LIFETIME-USE SMARTSET# 55906 Completed 08/01/2019, 08/13/2010, 05/15/2010 GARDASIL-HPV IMMUNIZATION SERIES Aged Out No longer eligible based on patient's age to complete this topic Hepatitis B Aged Out No longer eligi ble based on patient's age to complete this topic MENINGOCOCCAL (MENACTRA/MENVEO) Aged Out No longer eligible based on patient's age to complete this topic documented as of this encounter Medical Devices Implanted Type Area Production Planning Supervisor Device Identifier Shelf Expiration Date Model / Serial / Lot Sureclip 16mm 235cm - [id number] Implanted:Qty: 5 on 09/10/2021 by Estefani Ramirez MD at OR [facility] MICRO TECH ENDOSCOPY 12/18/2023 [id number] / / [id number] documented as of this encounter Visit Diagnoses Diagnosis Essential thrombocythemia (HCC)- Primary Essential thrombocythemia documented in this encounter Care Teams Hole Filler Relationship Specialty Start Date End Date Shaniqua Price MD [address] [place] [address] PCP - General Family Medicine 01/12/21 documented as of this encounter
--- OUTSIDE RECORDS SUMMARY | 2023-07-14 02:00 | External Medical Summary ---
Author Name Unknown Address Unknown Organization [facility] [address] [place] [id number] Laboratory Report Ordering Provider Test Date Status LESLIE MARROQUIN 07/06/2023 10:05:00 Final Observation Date Value Abnormality Reference (Units ) Status SYNC LEUKOCYTES IN BLOOD BY AUTOMATED COUNT 07/06/2023 10:05:00 6.31 4.00-10.80 (K/uL) Final Neutrophils/100 leukocytes in Blood by Manual count 07/06/2023 10:05:00 77.0 Above high normal 40.0-75.0 (%) Final Lymphocytes/100 leukocytes in Blood by Manual count 07/06/2023 10:05:00 16.0 Below low normal 18.0-42.0 (%) Final Monocytes/100 leukocytes in Blood by Manual count 07/06/2023 10:05:00 4.0 1.0-11.0 (%) Final Eosinophils/100 leukocytes in Blood by Manual count 07/06/2023 10:05:00 2.0 0.0-6.0 (%) Final Metamyelocytes/100 leukocytes in Blood by Manual count 07/06/2023 10:05:00 1.0 Above high normal <=0.0 (%) Final Neutrophils [#/volume] in Blood by Manual count 07/06/2023 10:05:00 4.86 1.80-7.70 (K/uL) Final Lymphocytes [#/volume] in Blood by Manual count 07/06/2023 10:05:00 1.01 1.00-4.80 (K/uL) Final Monocytes [#/volume] in Blood by Manual count 07/06/2023 10:05:00 0.25 0.00-1.10 (K/uL) Final Eosinophils [#/volume] in Blood by Manual count 07/06/2023 10:05:00 0.13 0.00-0.70 (K/uL) Final Metamyelocytes [#/volume] in Blood by Manual count 07/06/2023 10:05:00 0.06 Above high normal <=0.00 (K/uL) Final Nucleated erythrocytes/100 leukocytes [Ratio] in Blood by Automated count 07/06/2023 10:05:00 Final Performing Location [facility] [address] [facility] [id number]
--- OUTSIDE RECORDS SUMMARY | 2023-07-14 02:01 | External Medical Summary ---
Author Name Unknown Address Unknown [id number] [address] [place] [id number] Laboratory Report Ordering Provider Test Date Status LESLIE MARROQUIN 04/13/2023 10:33:00 Final Observation Date Value Abnormality Reference (Units ) Status WBC, Total 04/13/2023 10:33:00 6.87 4.00-10.8 0 (K/uL) Final RBC 04/13/2023 10:33:00 3.16 3.85-5.15 (M/uL) Final Hemoglobin 04/13/2023 10:33:00 12.0 12.0-15.3 (g/dL) Final HCT 04/13/2023 10:33:00 37.0 36.0-45.2 (%) Final MCV 04/13/2023 10:33:00 117.1 81.5-97.5 (fL) Final MCH 04/13/2023 10:33:00 38.0 27.0-34.0 (pg) Final MCHC 04/13/2023 10:33:00 32.4 32.0-36.0 (g/dL) Final RDW 04/13/2023 10:33:00 14.4 11.5-15.5 (%) Final Platelets 04/13/2023 10:33:00 340 140-400 (K /uL) Final MPV 04/13/2023 10:33:00 10.7 6.6-11.1 ( fL) Final Performing Location [facility] [address] [place] [id number]
--- OUTSIDE RECORDS SUMMARY | 2023-07-14 02:01 | External Medical Summary ---
Author Name Unknown Address Unknown Organization [facility] [address] [place] [address] Laboratory Report Ordering Provider Test Date Status LESLIE MARROQUIN 05/25/2023 11:57:00 Final Observation Date Value Abnormality Reference (Units ) Status SYNC LEUKOCYTES IN BLOOD BY AUTOMATED COUNT 05/25/2023 11:57:00 6.07 4.00-10.80 (K/uL) Final Segs 05/25/2023 11:57:00 72.6 40.0-75.0 (%) Final Lymphs % 05/25/2023 11:57:00 19.8 18.0-42.0 (%) Final Monos 05/25/2023 11:57:00 6.1 1.0-11.0 (%) Final Eosinophils 05/25/2023 11:57:00 1.3 0.0-6.0 (%) Final Basos 05/25/2023 11:57:00 0.2 0.0-2.0 (%) Final Absolute Segs 05/25/2023 11:57:00 4.41 1.80-7.70 (K/uL) Final Lymphs, absolute 05/25/2023 11:57:00 1.20 1.00-4.80 (K/ul) Final Monos, Abs 05/25/2023 11:57:00 0.37 0.00-1.10 (K/uL) Final Eos, Abs 05/25/2023 11:57:00 0.08 0.00-0.70 (K/uL) Final Basos, Abs 05/25/2023 11:57:00 0.01 0.00-0.20 (K/uL) Final Performing Location [facility] [address] [place] [id number]
--- OUTSIDE RECORDS SUMMARY | 2023-07-14 02:01 | External Medical Summary ---
Author Name Unknown Address Unknown Organization [facility] [address] [place] [address] Laboratory Report Ordering Provider Test Date Status LESLIE MARROQUIN 02/23/2023 09:39:00 Final Observation Date Value Abnormality Reference (Units ) Status SYNC LEUKOCYTES IN BLOOD BY AUTOMATED COUNT 02/23/2023 09:39:00 5.73 4.00-10.80 (K/uL) Final Segs 02/23/2023 09:39:00 72.5 40.0-75.0 (%) Final Lymphs % 02/23/2023 09:39:00 19.5 18.0-42.0 (%) Final Monos 02/23/2023 09:39:00 5.6 1.0-11.0 (%) Final Eosinophils 02/23/2023 09:39:00 1.9 0.0-6.0 (%) Final Basos 02/23/2023 09:39:00 0.5 0.0-2.0 (%) Final Absolute Segs 02/23/2023 09:39:00 4.15 1.80-7.70 (K/uL) Final Lymphs, absolute 02/23/2023 09:39:00 1.12 1.00-4.80 (K/ul) Final Monos, Abs 02/23/2023 09:39:00 0.32 0.00-1.10 (K/uL) Final Eos, Abs 02/23/2023 09:39:00 0.11 0.00-0.70 (K/uL) Final Basos, Abs 02/23/2023 09:39:00 0.03 0.00-0.20 (K/uL) Final Performing Location [facility] [address] [place] [address]
--- OUTSIDE RECORDS SUMMARY | 2023-07-14 02:01 | External Medical Summary ---
Author Name Unknown Address Unknown Organization [facility] [address] [place] [address] Laboratory Report Ordering Provider Test Date Status LESLIE MARROQUIN 03/09/2023 08:49:00 Final Observation Date Value Abnormality Reference (Units ) Status SYNC LEUKOCYTES IN BLOOD BY AUTOMATED COUNT 03/09/2023 08:49:00 6.28 4.00-10.80 (K/uL) Final Segs 03/09/2023 08:49:00 71.8 40.0-75.0 (%) Final Lymphs % 03/09/2023 08:49:00 21.2 18.0-42.0 (%) Final Monos 03/09/2023 08:49:00 4.3 1.0-11.0 (%) Final Eosinophils 03/09/2023 08:49:00 2.2 0.0-6.0 (%) Final Basos 03/09/2023 08:49:00 0.5 0.0-2.0 (%) Final Absolute Segs 03/09/2023 08:49:00 4.51 1.80-7.70 (K/uL) Final Lymphs, absolute 03/09/2023 08:49:00 1.33 1.00-4.80 (K/ul) Final Monos, Abs 03/09/2023 08:49:00 0.27 0.00-1.10 (K/uL) Final Eos, Abs 03/09/2023 08:49:00 0.14 0.00-0.70 (K/uL) Final Basos, Abs 03/09/2023 08:49:00 0.03 0.00-0.20 (K/uL) Final Performing Location [facility] [address] [place] [address]
--- OUTSIDE RECORDS SUMMARY | 2023-07-14 02:01 | External Medical Summary | Summary of Care ---
Author Name Unknown Organization [facility] Address [address] [place] [address] Phone [phone] Care Team Providers Care Dissolver Operator Name Role Phone Shaniqua Price MD Primary Care Provider Reason for Visit * Reason Comments Medication Management Encounter Details Date Type Department Care Team Description 02/24/2023 Pharmacy Pharmacy Hematology Oncology [facility] [address], [place] [id number] [facility] [address] [place] [address] Essential thrombocythemia (HCC)* Allergies Active Allergy Reactions Severity Noted Date Comments Statins 06/03/2011 Elevation in lfts Sulfa Antibiotics Edema face/lips/tongue High 2009 documented as of this encounter (statuses as of 02/23/2023) Medications Medication Sig Dispensed Refills Start Date [...] days of the week 35 Capsule 3 02/09/2023 Active documented as of this encounter (statuses as of 02/23/2023) Active Problems Problem Noted Date Amanda-prosthetic fracture around prosthet ic hip 12/04/2022 Closed wedge compression fracture of fou rth thoracic vertebra 12/04/2022 Closed stable burst fracture of T8 verte bra with delayed healing 12/04/2022 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 Pancreatic cyst 07/12/2020 Stage 3a chronic kidney disease 04/23/20 20 Overview: Per CKD protocol Essential thrombocythemia 06/28/2018 Large hiatal hernia 11/24/2011 Statin intolerance 04/29/2011 Overview: Elevation lfts, aches Dyslipidemia, goal LDL below 160 011 Osteoporosis 06/21/2010 Meniere's disease Overview: no salt in diet Chronic constipation documented as of this encounter (statuses as of 02/23/2023) Resolved Problems Problem Noted Date Resolved Date Patient left without being seen 02/12/2017 05/26/2018 Kidney disease, chronic, stage III (GFR 30-59 ml /min) 08/08/2013 04/26/2020 Overview: Per CKD protocol #1 Dyslipidemia, goal to be determined 04/01/2011 documented as of this encounter (statuses as of 02/23/2023) Immunizations Name Administration Dates Next Due Seasonal Influenza Virus Vac cine, Unspecified Formulation 2018 Seasonal Influenza, Quadrivalent Hd, 65+ Yrs ,07/05/2021 documented as of this encounter Social History Tobacco Use Types Packs/Day Years Used Date Smoking Tobacco: Never Smokeless Tobacco: Never Alcohol Use Standard Drinks/Week Comments Yes 0 (1 standard drink = 0.6 oz pur e alcohol) one drink three times a year Food Insecurity Answer Date Recorded Within the past 12 months, y ou worried that your food would run out before you got money to buy more. Never true 05/30/2019 Within the past 12 months, t he food you bought just didn't last and you didn't have money to get more. Never true 05/30/2019 Sex Assigned at Date Recorded Not on file Job Start Date Occupation Industry Not on file Not on file Not on file documented as of this encounter Progress Notes * Nathalie Holt, [facility] - 02/23/2023 3:44 PM EDT MEDICATION THERAPY MANAGEMENT HYDROXYUREA TREATMENT PROGRESS NOTE Natasha Ramos [phone] Patient Phone Numbers (daughter, Cher) GML: / Communication: Left message Current Treatment: Medication: hydroxyurea Indication: ET Dose: 500mg BID Fri, 500mg daily AOD (DI 01/06/23) Start date: 07/20/18 Primary Qa Architect: Dr. Eaton Is patient prescribed medication for Essential Thrombocythemia? Yes. IPSET- Thrombosis Risk Score: 3(age, WBC count) Interval History: Per OV 09/23/21, Pt s/p esophagoscopy w/diverticulectomy of hypopharynx on 09/10/21 (hydroxyurea held09/08/21-09/15/21) Per MyG 01/18/22, lab monitoring extended to monthly Per MyG 08/11/22, pt requests GML for lab monitoring but will only accept Thursday lab draws Pt admitted to [facility] from 11/24/22-11/28/22 for hip fracture and discharge to [facility] Per Ankita note 12/29/22, pt discharged to home 12/29/22 with home health and will continue weekly lab monitoring Pt has stage 6 dementia Changes to medication list since last visit? No Assessment and Plan: PLT at goal All other labs stable Continue current hydrea dose and q2wk labs via GML Dose adjustment needed based on lab or adverse drug reaction? No Follow up: 2 weeks Nathalie Holt PharmD, OP Clinical Pharmacist, [facility] Oral Chemotherapy [facility] 02/23/2023, 3:51 PM Pertinent labs: Latest Reference Range & Units 02/02/23 09:58 02/09/23 09:50 02/23/23 09:39 WBC 4.00 - 10.80 K/uL 6.57 4.84 5.73 HGB 12.0 - 15.3 g/dL 12.4 12.9 12.5 HCT 36.0 - 45.2 % 38.5 38.9 36.9 MCV 81.5 - 97.5 fL 106.6 107.5 107.9 PLT 140 - 400 K/uL 318 318 345 Absolute Neutrophils 1.80 - 7.70 K/uL 4.91 3.27 4.15 Time Spent on Encounter: 6 - 10 minutes Encounter Group: Hematology Encounter Interventions Item Category: Oral Chemotherapy Hydroxurea Problem/Rationale: Effectiveness: Needs additional monitoring - Medication Requires monitoring Safety: Needs additional monitoring - Medication Requires monitoring Pharmacist Intervention(s): Lab monitoring Magnitude of Intervention: Monitoring with direction (Level 1) documented in this encounter Plan of Treatment Upcoming Encounters Date Type Specialty Care Team Description 03/09/2023 Laboratory Laboratory Processing [facility], [facility] Draw [address] [place] [address] 03/10/2023 Pharmacy Pharmacy [facility], [facility] Hem[facility]Onc [address] [place] [address] 04/13/2023 Laboratory Laboratory Processing [facility], [facility] Draw [address] [place] [address] 05/06/2023 Office Visit Hematology Oncology Lito Eaton MD [address] [place] [address] 05/11/2023 Laboratory Laboratory Processing [facility], [facility] Draw [address] [place] [address] 06/08/2023 Laboratory Laboratory Processing [facility], [facility] Draw [address] [place] [address] Health Maintenance Due Date Last Done Comments Pneumococcal Vaccine: 65+ Years (1 - PCV) 1941 DTaP,Tdap,and Td Vaccines (1 - Tdap) 1954 Zoster Vaccines (1 of 2) 1954 DXA Scan 06/21/2012 06/21/2010, 06/21/2010 Albumin/Creatinine Ratio 05/26/2019 05/26/2018, 01/13 Depression Screening 07/04/2020 07/04/2019 COVID-19 Vaccine (4 - Mixed Product risk series) 11/12/2020 09/17/2020, 08/20/2020, 08/20/2020 CKD PHOS USE SMARTSET 53445 02/05/202101/14, 08/01/2019, 05/26/2018, Additional history exists Influenza Vaccine (FLU shot) (#1) 2023 03/10/2022, 07/05/2021, 2018 CKD HGB USE SMARTSET 79703 02/24/202402/23, 02/23/2023, 02/09/2023, Additional history exists *BISPHONATE OR OTHER ACCEPTABLE MEDICATION NEEDED FOR OSTEOPOROSIS (REFER TO SMARTSET #1146) Addressed 01/01/2016 (Declined) Overridden w ith the intention of not completing the topic VITAMIN D LEVEL ONCE IN A LIFETIME-USE SMARTSET# [id number] Completed 08/01/2019, 08/13/2010, 05/15/2010 GARDASIL-HPV IMMUNIZATION SERIES Aged Out No longer eligible based on patient's age to complete this topic Hepatitis B Aged Out No longer eligi ble based on patient's age to complete this topic MENINGOCOCCAL (MENACTRA/MENVEO) Aged Out No longer eligible based on patient's age to complete this topic documented as of this encounter Medical Devices Implanted Type Area Lean Leader Device Identifier Shelf Expiration Date Model / Serial / Lot Sureclip 16mm 235cm - [id number] Implanted:Qty: 5 on 09/10/2021 by Estefani Ramirez MD at OR [facility] MICRO TECH ENDOSCOPY 12/18/2023 [id number] / / [id number] documented as of this encounter Visit Diagnoses Diagnosis Essential thrombocythemia (HCC)- Primary Essential thrombocythemia documented in this encounter Care Teams Dissolver Operator Relationship Specialty Start Date End Date Shaniqua Price MD [address] [place] [address] PCP - General Family Medicine 01/12/21 documented as of this encounter
--- OUTSIDE RECORDS SUMMARY | 2023-07-14 02:01 | External Medical Summary | Summary of Care ---
Author Name Unknown Organization [facility] Address [address] [place] [address] Phone [phone] Care Team Providers Care Administrative Aide Name Role Phone Shaniqua Price MD Primary Care Provider Reason for Visit * Reason Onset Date Comments Medication Refill 02/09/2023 Encounter Details Date Type Department Care Team Description 02/09/2023 Refill Hematology/Oncology [facility] [address] [facility] [address] [facility] [address] [facility] [address] Essential thrombocythemia (HCC) Allergies Active Allergy Reactions Severity Noted Date Comments Statins 06/03/2011 Elevation in lfts Sulfa Antibiotics Edema face/lips/tongue High 2009 documented as of this encounter (statuses as of 02/09/2023) Medications Medication Sig Dispensed Refills Start Date [...] Tablet 0 12/04/2022 Active Thick-It Oral Powder (Starch-Maltodextrin )Indications:Orophar yngeal dysphagia Follow directions on can to thicken liquids to "nectar" consistency 850 g 0 12/29/2022 Active Memantine HCl 10 MG Oral Tablet (Namenda)Indications :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 30 Tablet 0 12/29/2022 Active Hydroxyurea 500 MG Oral Capsule (Hydrea)Indications: Essential thrombocythemia (HCC) Take one 500mg cap by mouth two times per day on Thursday and one 500mg cap by mouth once daily all other days of the week 35 Capsule 3 02/09/2023 Active Hydroxyurea 500 MG Oral Capsule (Hydrea)Indications: Essential thrombocythemia (HCC) Take 1 Capsule by mouth in the morning. 30 Capsule 3 12/09/2022 02/10/20 23 Discontinu ed(Refill) documented as of this encounter (statuses as of 02/09/2023) Active Problems Problem Noted Date Amanda-prosthetic fracture [...] as of this encounter (statuses as of 02/09/2023) Resolved Problems Problem Noted Date Resolved Date Patient left without being seen 02/12/2017 05/26/2018 Kidney disease, chronic, stage III (GFR 30-59 ml /min) 08/08/2013 04/26/2020 Overview: Per CKD protocol #1 Dyslipidemia, goal to be determined 04/01/2011 documented as of this encounter (statuses as of 02/09/2023) Immunizations Name Administration Dates Next Due Seasonal [...] on file documented as of this encounter Miscellaneous Notes * Telephone Encounter - Nathalie Holt RPh - 02/09/2023 1:49 PM EDT Hydrea RX refill per 02/10 [facility] encounter documented in this encounter Plan of Treatment Upcoming Encounters Date Type Specialty Care Team Description 02/10/2023 Pharmacy Pharmacy [facility], [facility] Hem/Onc [address] [place] [address] Essential thrombocythemia (HCC)* 02/24/2023 Pharmacy Pharmacy [facility], [facility] Hem/Onc [address] [place] [address] 03/09/2023 Laboratory Laboratory Processing [facility], [facility] Home Draw [address] [place] [address] 04/13/2023 Laboratory Laboratory Processing [facility], [facility] Draw [address] [place] [address] 05/06/2023 Office Visit Hematology Oncology Lito Eaton MD [address] [place] [address] 05/11/2023 Laboratory Laboratory Processing [facility], [facility] Draw [address] [place], [place] [phone] 06/08/2023 Laboratory Laboratory Processing [facility], [facility] Draw [address] [place] [address] Health Maintenance Due Date Last Done Comments Pneumococcal Vaccine: 65+ Years (1 - PCV) 1941 DTaP,Tdap,and Td Vaccines (1 - Tdap) 1954 Zoster Vaccines (1 of 2) 1954 DXA Scan 06/21/2012 06/21/2010, 06/21/2010 Albumin/Creatinine Ratio 05/26/2019 05/26/2018, 01/13 Depression Screening, Annual for Pts 12 and Over 07/04/2020 07/04/2019 COVID-19 Vaccine (4 - Mixed Product risk series) 11/12/2020 09/17/2020, 08/20/2020, 08/20/2020 CKD PHOS USE SMARTSET [id number] 02/05/202101/14, 08/01/2019, 05/26/2018, Additional history exists Influenza Vaccine (FLU shot) (#1) 2023 03/10/2022, 07/05/2021, 2018 CKD HGB USE SMARTSET 67879 02/10/202402/09, 02/09/2023, 02/02/2023, Additional history exists *BISPHONATE OR OTHER ACCEPTABLE MEDICATION NEEDED FOR OSTEOPOROSIS (REFER TO SMARTSET #1146) Addressed 01/01/2016 (Declined) Overridden w ith the intention of not completing the topic VITAMIN D LEVEL ONCE IN A LIFETIME-USE SMARTSET# 16453 Completed 08/01/2019, 08/13/2010, 05/15/2010 GARDASIL-HPV IMMUNIZATION SERIES Aged Out No longer eligible based on patient's age to complete this topic Hepatitis B Aged Out No longer eligi ble based on patient's age to complete this topic MENINGOCOCCAL (MENACTRA/MENVEO) Aged Out No longer eligible based on patient's age to complete this topic documented as of this encounter Medical Devices Implanted Type Area Social Studies Teacher Device Identifier Shelf Expiration Date Model / Serial / Lot Sureclip 16mm 235cm - [id number] Implanted:Qty: 5 on 09/10/2021 by Estefani Ramirez MD at OR [facility] MICRO TECH ENDOSCOPY 12/18/2023 [id number] / / [id number] documented as of this encounter Visit Diagnoses Diagnosis Essential thrombocythemia (HCC) Essential thrombocythemia Essential thrombocythemia (HCC)- Primary Essential thrombocythemia documented in this encounter Care Teams Administrative Aide Relationship Specialty Start Date End Date Shaniqua Price MD [address] [place], [place] [address] PCP - General Family Medicine 01/12/21 documented as of this encounter
--- OUTSIDE RECORDS SUMMARY | 2023-07-14 02:01 | External Medical Summary ---
Author Name Unknown Address Unknown Organization [facility] [address] [place] [address] Laboratory Report Ordering Provider Test Date Status LESLIE MARROQUIN 06/11/2023 11:29:00 Final Observation Date Value Abnormality Reference (Units ) Status SYNC LEUKOCYTES IN BLOOD BY AUTOMATED COUNT 06/11/2023 11:29:00 7.99 4.00-10.80 (K/uL) Final Segs 06/11/2023 11:29:00 76.6 Above high normal 40.0-75.0 (%) Final Lymphs % 06/11/2023 11:29:00 17.0 Below low normal 18.0-42.0 (%) Final Monos 06/11/2023 11:29:00 4.9 1.0-11.0 (%) Final Eosinophils 06/11/2023 11:29:00 1.0 0.0-6.0 (%) Final Basos 06/11/2023 11:29:00 0.5 0.0-2.0 (%) Final Absolute Segs 06/11/2023 11:29:00 6.12 1.80-7.70 (K/uL) Final Lymphs, absolute 06/11/2023 11:29:00 1.36 1.00-4.80 (K/ul) Final Monos, Abs 06/11/2023 11:29:00 0.39 0.00-1.10 (K/uL) Final Eos, Abs 06/11/2023 11:29:00 0.08 0.00-0.70 (K/uL) Final Basos, Abs 06/11/2023 11:29:00 0.04 0.00-0.20 (K/uL) Final Performing Location [facility] [place] [address]
--- OUTSIDE RECORDS SUMMARY | 2023-07-14 02:01 | External Medical Summary | Summary of Care ---
Author Name Unknown Organization [facility] Address [address] [place] [address] Phone [phone] Care Team Providers Care Sulfate Drier Machine Operator Name Role Phone Shaniqua Price MD Primary Care Provider Reason for Visit * Reason Comments Medication Management Encounter Details Date Type Department Care Team (Late st Contact Info) Description 06/12/2023 9:00 AM [facility] Pharmacy Pharmacy Hematology Oncology [facility] [address] [place] [address] [facility], [facility] Hem/Onc [address], [place] [id number] Essential thrombocythemia (HCC)* Allergies Active Allergy Reactions Criticality Noted Date Comments Statins 06/03/2011 Elevation in lfts Sulfa Antibiotics Edema face/lips/tongue High 2009 documented as of this encounter (statuses as of 06/11/2023) Medications Medication Sig Dispensed Refills Start Date [...] as of this encounter (statuses as of 06/11/2023) Active Problems Problem Noted Date Diagnosed Date [...] as of this encounter (statuses as of 06/11/2023) Resolved Problems Problem Noted Date Diagnosed Date Resolved Date Patient left without being seen 02/12/2017 05/26/2018 Kidney disease, chronic, sta ge III (GFR 30-59 ml/min) 08/08/2013 04/26/2020 Overview: Per CKD protocol #1 Dyslipidemia, goal to be determined 04/01/2011 documented as of this encounter (statuses as of 06/11/2023) Immunizations Name Administration Dates Next Due Seasonal [...] this encounter Progress Notes * Nathalie Holt, [facility] - 06/11/2023 2:57 PM EST MEDICATION THERAPY MANAGEMENT HYDROXYUREA TREATMENT PROGRESS NOTE Natasha Li Ramos [id number] Patient Phone Numbers (daughter, Cher) GML: Communication: Left message Current Treatment: Medication: hydroxyurea Indication: ET Dose: 500mg BID Thu, 500mg daily AOD (DI 01/06/23) Start date: 07/20/18 Primary Machine Molder Squeeze: Dr. Eaton Is patient prescribed medication for Essential Thrombocythemia? Yes. IPSET- Thrombosis Risk Score: 3(age, WBC count) Interval History: Per OV 09/23/21, Pt s/p esophagoscopy w/diverticulectomy of hypopharynx on 09/10/21 (hydroxyurea held09/08/21-09/15/21) Per MyG 01/18/22, lab monitoring extended to monthly Per MyG 08/11/22, pt requests [facility] for lab monitoring but will only accept Thursday lab draws Pt admitted to [facility] from 11/24/22-11/28/22 for hip fracture and discharge to [facility] Per Ankita note 12/29/22, pt discharged to home 12/29/22 with home health and will continue weekly lab monitoring Pt has stage 6 dementia Changes to medication list since last visit? No Assessment and Plan: PLT at goal H/H improving All other labs stable Continue current hydrea dose Lab monitoring extended to monthly via GML Plan reviewed with Dr. Eaton Dose adjustment needed based on lab or adverse drug reaction? No Follow up: 07/06 GML; 07/07 MT Nathalie Holt, PharmD, BCOP Clinical Pharmacist, [facility] Oral Chemotherapy [facility] 06/11/2023, 3:02 PM Pertinent labs: Latest Reference Range & Units 05/11/23 11:28 05/25/23 11:57 06/11/23 11:29 WBC 4.00 - 10.80 K/uL 9.05 6.07 7.99 HGB 12.0 - 15.3 g/dL 11.3 (L) 11.6 (L) 12.0 HCT 36.0 - 45.2 % 35.6 (L) 36.2 37.3 MCV 81.5 - 97.5 fL 119.9 116.0 116.2 PLT 140 - 400 K/uL 398 326 402 (H) Absolute Neutrophils 1.80 - 7.70 K/uL 7.46 4.41 6.12 Time Spent on Encounter: 6 - 10 minutes Encounter Group: Hematology Encounter Interventions Item Category: Oral Chemotherapy Hydroxurea Problem/Rationale: Effectiveness: Needs additional monitoring - Medication Requires monitoring Safety: Needs additional monitoring - Medication Requires monitoring Pharmacist Intervention(s): Care coordination, Lab monitoring, and Made recommendation to provider Magnitude of Intervention: Monitoring with direction (Level 1) documented in this encounter Plan of Treatment Upcoming Encounters Date Type Department Care Team (Late st Contact Info) Description 07/07/2023 9:00 AM EST Pharmacy Pharmacy Hematology Oncology [facility] [address] [place] [address] [facility], [facility] Hem/Onc [address] [place] [address] 11/04/2023 4:00 PM EDT Telemedicine Hematology/Oncology [place] Cecily Mehta [address] [facility] [place] [address] Lito Eaton MD [address] [facility] [place] [address] Health Maintenance Due Date Last Done Comments Pneumococcal Vaccine: 65+ Years (1 - PCV) 1941 DTaP,Tdap,and Td Vaccines (1 - Tdap) 1954 Zoster Vaccines (1 of 2) 1954 DXA Scan 06/21/2012 06/21/2010, 06/21/2010 Albumin/Creatinine Ratio 05/26/2019 05/26/2018, 01/13 Depression Screening 07/04/2020 07/04/2019 CKD PHOS USE SMARTSET 24660 02/05/202101/14, 08/01/2019, 05/26/2018, Additional history exists COVID-19 Vaccine ( season) 2023 09/17/2020, 08/20/2020, 08/20/2020 Influenza Vaccine (FLU shot) (#1) 2023 03/10/2022, 07/05/2021, 2018 CKD HGB USE SMARTSET 07498 06/11/202406/11, 06/11/2023, 05/25/2023, Additional history exists *BISPHONATE OR OTHER ACCEPTABLE MEDICATION NEEDED FOR OSTEOPOROSIS (REFER TO SMARTSET #1146) Addressed 01/01/2016 (Declined) Overridden w ith the intention of not completing the topic VITAMIN D LEVEL ONCE IN A LIFETIME-USE SMARTSET# 61436 Completed 08/01/2019, 08/13/2010, 05/15/2010 GARDASIL-HPV IMMUNIZATION SERIES Aged Out No longer eligible based on patient's age to complete this topic Hepatitis B Aged Out No longer eligi ble based on patient's age to complete this topic MENINGOCOCCAL (MENACTRA/MENVEO) Aged Out No longer eligible based on patient's age to complete this topic documented as of this encounter Medical Devices Implanted Type Area Blasting Entry Specialist Device Identifier Shelf Expiration Date Model / Serial / Lot Sureclip 16mm 235cm - [id number] Implanted:Qty: 5 on 09/10/2021 by Estefani Ramirez MD at OR [facility] MICRO TECH ENDOSCOPY 12/18/2023 [id number] / / [id number] documented as of this encounter Visit Diagnoses Diagnosis Essential thrombocythemia (HCC)- Primary Essential thrombocythemia documented in this encounter Care Teams Sulfate Drier Machine Operator Relationship Specialty Start Date End Date Shaniqua Price MD [facility] [place] [address] PCP - General Family Medicine 01/12/21 documented as of this encounter
--- OUTSIDE RECORDS SUMMARY | 2023-07-14 02:01 | External Medical Summary | Summary of Care ---
Author Name Unknown Organization [facility] Address [address] [place] [address] Phone [phone] Care Team Providers Care Surgical Instruments Inspector Name Role Phone Shaniqua Price MD Primary Care Provider Reason for Visit * Reason Comments Medication Management Encounter Details Date Type Department Care Team (Late st Contact Info) Description 04/14/2023 9:00 AM EDT Pharmacy Pharmacy Hematology Oncology [facility] [address], [place] [phone] [facility] Clinic Hem/Onc [address] [place], [place] [phone] Essential thrombocythemia (HCC)* Allergies Active Allergy Reactions Criticality Noted Date Comments Statins 06/03/2011 Elevation in lfts Sulfa Antibiotics Edema face/lips/tongue High 2009 documented as of this encounter (statuses as of 04/14/2023) Medications Medication Sig Dispensed Refills Start Date [...] as of this encounter (statuses as of 04/14/2023) Active Problems Problem Noted Date Diagnosed Date [...] as of this encounter (statuses as of 04/14/2023) Resolved Problems Problem Noted Date Diagnosed Date Resolved Date Patient left without being seen 02/12/2017 05/26/2018 Kidney disease, chronic, sta ge III (GFR 30-59 ml/min) 08/08/2013 04/26/2020 Overview: Per CKD protocol #1 Dyslipidemia, goal to be determined 04/01/2011 documented as of this encounter (statuses as of 04/14/2023) Immunizations Name Administration Dates Next Due Seasonal [...] this encounter Progress Notes * Nathalie Holt, [facility] - 04/14/2023 10:10 AM EDT MEDICATION THERAPY MANAGEMENT HYDROXYUREA TREATMENT PROGRESS NOTE Natasha Ramos [id number] Patient Phone Numbers (daughter, Cher) GML: Communication: Left message Current Treatment: Medication: hydroxyurea Indication: ET Dose: 500mg BID Thu, 500mg daily AOD (DI 01/06/23) Start date: 07/20/18 Primary Chemical Blender: Dr. Eaton Is patient prescribed medication for Essential Thrombocythemia? Yes. IPSET- Thrombosis Risk Score: 3(age, WBC count) Interval History: Per OV 09/23/21, Pt s/p esophagoscopy w/diverticulectomy of hypopharynx on 09/10/21 (hydroxyurea held09/08/21-09/15/21) Per MyG 01/18/22, lab monitoring extended to monthly Per MyG 08/11/22, pt requests [facility] for lab monitoring but will only accept Thursday lab draws Pt admitted to [facility] from 11/24/22-11/28/22 for hip fracture and discharge to [facility] Per Ankita note 12/29/22, pt discharged to home 12/29/22 with home health and will continue weekly lab monitoring Pt has stage 6 dementia Changes to medication list since last visit? No Assessment and Plan: PLT at goal All other labs stable Continue current hydrea dose and monthly labs via GML Dose adjustment needed based on lab or adverse drug reaction? No Follow up: 05/06 OV; 05/12 MTM with labs Nathalie Holt, PharmD, BCOP Clinical Pharmacist, [facility] Oral Chemotherapy [facility] 04/14/2023, 10:14 AM Pertinent labs: Latest Reference Range & Units 02/23/23 09:39 03/09/23 08:49 04/13/23 10:33 WBC 4.00 - 10.80 K/uL 5.73 6.28 6.87 HGB 12.0 - 15.3 g/dL 12.5 12.8 12.0 HCT 36.0 - 45.2 % 36.9 37.9 37.0 MCV 81.5 - 97.5 fL 107.9 110.2 117.1 PLT 140 - 400 K/uL 345 332 340 Absolute Neutrophils 1.80 - 7.70 K/uL 4.15 4.51 5.05 Time Spent on Encounter: 6 - 10 [...] Care Team (Late st Contact Info) Description 05/06/2023 3:30 PM EST Office Visit Hematology/Oncology State Cecily Mehta [address] [place] [address] Lito Eaton MD [address] [place] [address] 05/11/2023 8:30 AM EST Laboratory Lab Mobile Phlebotomy [facility] [address] [facility] [place] [address] [facility] Mobile Home Draw [address] [place] [address] 06/08/2023 8:30 AM EST Laboratory Lab Mobile Phlebotomy [facility] [address] [place] [address] [facility] Mobile Home Draw [address] [place] [address] Health Maintenance Due Date Last Done Comments Pneumococcal Vaccine: 65+ Years (1 - PCV) 1941 DTaP,Tdap,and Td Vaccines (1 - Tdap) 1954 Zoster Vaccines (1 of 2) 1954 DXA Scan 06/21/2012 06/21/2010, 06/21/2010 Albumin/Creatinine Ratio 05/26/2019 05/26/2018, 01/13 Depression Screening 07/04/2020 07/04/2019 CKD PHOS USE SMARTSET 42141 02/05/202101/14, 08/01/2019, 05/26/2018, Additional history exists COVID-19 Vaccine ( season) 2023 09/17/2020, 08/20/2020, 08/20/2020 Influenza Vaccine (FLU shot) (#1) 2023 03/10/2022, 07/05/2021, 2018 CKD HGB USE SMARTSET 11810 04/13/202404/13, 04/13/2023, 03/09/2023, Additional history exists *BISPHONATE OR OTHER ACCEPTABLE MEDICATION NEEDED FOR OSTEOPOROSIS (REFER TO SMARTSET #1146) Addressed 01/01/2016 (Declined) Overridden w ith the intention of not completing the topic VITAMIN D LEVEL ONCE IN A LIFETIME-USE SMARTSET# [id number] Completed 08/01/2019, 08/13/2010, 05/15/2010 GARDASIL-HPV IMMUNIZATION SERIES Aged Out No longer eligible based on patient's age to complete this topic Hepatitis B Aged Out No longer eligi ble based on patient's age to complete this topic MENINGOCOCCAL (MENACTRA/MENVEO) Aged Out No longer eligible based on patient's age to complete this topic documented as of this encounter Medical Devices Implanted Type Area Software Engineer Device Identifier Shelf Expiration Date Model / Serial / Lot Sureclip 16mm 235cm - [id number] Implanted:Qty: 5 on 09/10/2021 by Estefani Ramirez MD at OR [facility] MICRO TECH ENDOSCOPY 12/18/2023 [id number] / / [id number] documented as of this encounter Visit Diagnoses Diagnosis Essential thrombocythemia (HCC)- Primary Essential thrombocythemia documented in this encounter Care Teams Surgical Instruments Inspector Relationship Specialty Start Date End Date Shaniqua Price MD [address] [facility], [place] [phone] PCP - General Family Medicine 01/12/21 documented as of this encounter
--- OUTSIDE RECORDS SUMMARY | 2023-07-14 02:01 | External Medical Summary ---
Author Name Unknown Address Unknown Organization [facility] [place] [address] [place] [address] Laboratory Report Ordering Provider Test Date Status LESLIE MARROQUIN 05/11/2023 11:28:00 Final Observation Date Value Abnormality Reference (Units ) Status SYNC LEUKOCYTES IN BLOOD BY AUTOMATED COUNT 05/11/2023 11:28:00 9.05 4.00-10.80 (K/uL) Final Segs 05/11/2023 11:28:00 82.4 Above high normal 40.0-75.0 (%) Final Lymphs % 05/11/2023 11:28:00 11.5 Below low normal 18.0-42.0 (%) Final Monos 05/11/2023 11:28:00 5.1 1.0-11.0 (%) Final Eosinophils 05/11/2023 11:28:00 0.8 0.0-6.0 (%) Final Basos 05/11/2023 11:28:00 0.2 0.0-2.0 (%) Final Absolute Segs 05/11/2023 11:28:00 7.46 1.80-7.70 (K/uL) Final Lymphs, absolute 05/11/2023 11:28:00 1.04 1.00-4.80 (K/ul) Final Monos, Abs 05/11/2023 11:28:00 0.46 0.00-1.10 (K/uL) Final Eos, Abs 05/11/2023 11:28:00 0.07 0.00-0.70 (K/uL) Final Basos, Abs 05/11/2023 11:28:00 0.02 0.00-0.20 (K/uL) Final Performing Location [facility] [place] [address]
--- OUTSIDE RECORDS SUMMARY | 2023-07-14 02:01 | External Medical Summary ---
Author Name Unknown Address Unknown Organization [facility] [address] [place] [address] Laboratory Report Ordering Provider Test Date Status LESLIE MARROQUIN 02/09/2023 09:50:00 Final Observation Date Value Abnormality Reference (Units ) Status SYNC LEUKOCYTES IN BLOOD BY AUTOMATED COUNT 02/09/2023 09:50:00 4.84 4.00-10.80 (K/uL) Final Segs 02/09/2023 09:50:00 67.5 40.0-75.0 (%) Final Lymphs % 02/09/2023 09:50:00 24.0 18.0-42.0 (%) Final Monos 02/09/2023 09:50:00 6.2 1.0-11.0 (%) Final Eosinophils 02/09/2023 09:50:00 1.9 0.0-6.0 (%) Final Basos 02/09/2023 09:50:00 0.4 0.0-2.0 (%) Final Absolute Segs 02/09/2023 09:50:00 3.27 1.80-7.70 (K/uL) Final Lymphs, absolute 02/09/2023 09:50:00 1.16 1.00-4.80 (K/ul) Final Monos, Abs 02/09/2023 09:50:00 0.30 0.00-1.10 (K/uL) Final Eos, Abs 02/09/2023 09:50:00 0.09 0.00-0.70 (K/uL) Final Basos, Abs 02/09/2023 09:50:00 0.02 0.00-0.20 (K/uL) Final Performing Location [facility] [place] [address] [place] [address]
--- OUTSIDE RECORDS SUMMARY | 2023-07-14 02:01 | External Medical Summary ---
Author Name Unknown Address Unknown Organization [facility] [place] [address] [place] [address] Laboratory Report Ordering Provider Test Date Status LESLIE MARROQUIN 04/13/2023 10:33:00 Final Observation Date Value Abnormality Reference (Units ) Status SYNC LEUKOCYTES IN BLOOD BY AUTOMATED COUNT 04/13/2023 10:33:00 6.87 4.00-10.80 (K/uL) Final Segs 04/13/2023 10:33:00 73.6 40.0-75.0 (%) Final Lymphs % 04/13/2023 10:33:00 19.2 18.0-42.0 (%) Final Monos 04/13/2023 10:33:00 4.9 1.0-11.0 (%) Final Eosinophils 04/13/2023 10:33:00 2.0 0.0-6.0 (%) Final Basos 04/13/2023 10:33:00 0.3 0.0-2.0 (%) Final Absolute Segs 04/13/2023 10:33:00 5.05 1.80-7.70 (K/uL) Final Lymphs, absolute 04/13/2023 10:33:00 1.32 1.00-4.80 (K/ul) Final Monos, Abs 04/13/2023 10:33:00 0.34 0.00-1.10 (K/uL) Final Eos, Abs 04/13/2023 10:33:00 0.14 0.00-0.70 (K/uL) Final Basos, Abs 04/13/2023 10:33:00 0.02 0.00-0.20 (K/uL) Final Performing Location [facility] [place] [address] [place] [address]
--- OUTSIDE RECORDS SUMMARY | 2023-07-14 02:01 | External Medical Summary ---
Author Name Unknown Address Unknown Organization [facility] [address] [place] [address] Laboratory Report Ordering Provider Test Date Status LESLIE MARROQUIN 06/11/2023 11:29:00 Final Observation Date Value Abnormality Reference (Units ) Status WBC, Total 06/11/2023 11:29:00 7.99 4.00-10.8 0 (K/uL) Final RBC 06/11/2023 11:29:00 3.21 3.85-5.15 (M/uL) Final Hemoglobin 06/11/2023 11:29:00 12.0 12.0-15.3 (g/dL) Final HCT 06/11/2023 11:29:00 37.3 36.0-45.2 (%) Final MCV 06/11/2023 11:29:00 116.2 81.5-97.5 (fL) Final MCH 06/11/2023 11:29:00 37.4 27.0-34.0 (pg) Final MCHC 06/11/2023 11:29:00 32.2 32.0-36.0 (g/dL) Final RDW 06/11/2023 11:29:00 14.5 11.5-15.5 (%) Final Platelets 06/11/2023 11:29:00 402 Above high normal 14 0-400 (K/uL) Final MPV 06/11/2023 11:29:00 10.3 6.6-11.1 ( fL) Final Performing Location [facility] [place] [address] [place] [address]
--- OUTSIDE RECORDS SUMMARY | 2023-07-14 02:01 | External Medical Summary | Summary of Care ---
Author Name Unknown Organization [facility] Address [address] [place] [address] Phone [phone] Care Team Providers Care Foreign Languages Professor Name Role Phone Shaniqua Price MD Primary Care Provider Reason for Visit * Reason Comments Medication Management Encounter Details Date Type Department Care Team (Late st Contact Info) Description 05/12/2023 9:00 AM [facility] Pharmacy Pharmacy Hematology Oncology [facility] [address] [place] [address] [facility], [facility] Clinic Hem/Onc [address] [place], [place] [phone] Essential thrombocythemia (HCC)* Allergies Active Allergy Reactions Criticality Noted Date Comments Statins 06/03/2011 Elevation in lfts Sulfa Antibiotics Edema face/lips/tongue High 2009 documented as of this encounter (statuses as of 05/12/2023) Medications Medication Sig Dispensed Refills Start Date [...] as of this encounter (statuses as of 05/12/2023) Active Problems Problem Noted Date Diagnosed Date [...] as of this encounter (statuses as of 05/12/2023) Resolved Problems Problem Noted Date Diagnosed Date Resolved Date Patient left without being seen 02/12/2017 05/26/2018 Kidney disease, chronic, sta ge III (GFR 30-59 ml/min) 08/08/2013 04/26/2020 Overview: Per CKD protocol #1 Dyslipidemia, goal to be determined 04/01/2011 documented as of this encounter (statuses as of 05/12/2023) Immunizations Name Administration Dates Next Due Seasonal [...] encounter Progress Notes * Nathalie Holt, [facility] - 05/12/2023 9:00 AM EST MEDICATION THERAPY MANAGEMENT HYDROXYUREA TREATMENT PROGRESS NOTE Natasha Li Ramos [id number] Patient Phone Numbers (daughter, Cher) GML: Communication: Left message and MyG message sent Current Treatment: Medication: hydroxyurea Indication: ET Dose: 500mg BID Thu, 500mg daily AOD (DI 01/06/23) Start date: 07/20/18 Primary Lap Checker: Dr. Eaton Is patient prescribed medication for Essential Thrombocythemia? Yes. IPSET- Thrombosis Risk Score: 3(age, WBC count) Interval History: Per OV 09/23/21, Pt s/p esophagoscopy w/diverticulectomy of hypopharynx on 09/10/21 (hydroxyurea held09/08/21-09/15/21) Per MyG 01/18/22, lab monitoring extended to monthly Per MyG 08/11/22, pt requests GML for lab monitoring but will only accept Thursday lab draws Pt admitted to [facility] from 11/24/22-11/28/22 for hip fracture and discharge to [facility] Per Ankita note 12/29/22, pt discharged to home 12/29/22 with home health and will continue weekly lab monitoring Pt has stage 6 dementia Changes to medication list since last visit? No Assessment and Plan: PLT at goal H/H declining All other labs stable Continue current hydrea dose Repeat labs in 2 weeks to assess H/H via GML Dose adjustment needed based on lab or adverse drug reaction? No Follow up: 2 weeks Nathalie Holt, PharmD, BCOP Clinical Pharmacist, [facility] Oral Chemotherapy [facility] 05/12/2023, 10:37 AM Pertinent labs: Latest Reference Range & Units 03/09/23 08:49 04/13/23 10:33 05/11/23 11:28 WBC 4.00 - 10.80 K/uL 6.28 6.87 9.05 HGB 12.0 - 15.3 g/dL 12.8 12.0 11.3 (L) HCT 36.0 - 45.2 % 37.9 37.0 35.6 (L) MCV 81.5 - 97.5 fL 110.2 117.1 119.9 PLT 140 - 400 K/uL 332 340 398 Absolute Neutrophils 1.80 - 7.70 K/uL 4.51 5.05 7.46 Time Spent on Encounter: 6 - 10 [...] Care Team (Late st Contact Info) Description 05/26/2023 9:00 AM EST Pharmacy Pharmacy Hematology Oncology [facility] [address] [place] [address] [facility] Clinic Hem/Onc [address] [place] [address] 06/09/2023 9:40 AM EST Laboratory Lab Mobile Phlebotomy [facility] [address] [place] [address] [facility], [facility] Mobile Home Draw [address] [place] [address] 11/04/2023 4:00 PM EDT Telemedicine [facility] [address] [place] [address] Lito Eaton MD [address] [place] [address] Health Maintenance Due Date Last Done Comments Pneumococcal Vaccine: 65+ Years (1 - PCV) 1941 DTaP,Tdap,and Td Vaccines (1 - Tdap) 1954 Zoster Vaccines (1 of 2) 1954 DXA Scan 06/21/2012 06/21/2010, 06/21/2010 Albumin/Creatinine Ratio 05/26/2019 05/26/2018, 01/13 Depression Screening 07/04/2020 07/04/2019 CKD PHOS USE SMARTSET 74176 02/05/202101/14, 08/01/2019, 05/26/2018, Additional history exists COVID-19 Vaccine ( season) 2023 09/17/2020, 08/20/2020, 08/20/2020 Influenza Vaccine (FLU shot) (#1) 2023 03/10/2022, 07/05/2021, 2018 CKD HGB USE SMARTSET 81857 05/11/202405/11, 05/11/2023, 04/13/2023, Additional history exists *BISPHONATE OR OTHER ACCEPTABLE MEDICATION NEEDED FOR OSTEOPOROSIS (REFER TO SMARTSET #1141) Addressed 01/01/2016 (Declined) Overridden w ith the intention of not completing the topic VITAMIN D LEVEL ONCE IN A LIFETIME-USE SMARTSET# 56720 Completed 08/01/2019, 08/13/2010, 05/15/2010 GARDASIL-HPV IMMUNIZATION SERIES Aged Out No longer eligible based on patient's age to complete this topic Hepatitis B Aged Out No longer eligi ble based on patient's age to complete this topic MENINGOCOCCAL (MENACTRA/MENVEO) Aged Out No longer eligible based on patient's age to complete this topic documented as of this encounter Medical Devices Implanted Type Area Staff Weapons Officer Device Identifier Shelf Expiration Date Model / Serial / Lot Sureclip 16mm 235cm - [id number] Implanted:Qty: 5 on 09/10/2021 by Estefani Ramirez MD at OR [facility] MICRO TECH ENDOSCOPY 12/18/2023 [id number] / / [id number] documented as of this encounter Visit Diagnoses Diagnosis Essential thrombocythemia (HCC)- Primary Essential thrombocythemia documented in this encounter Care Teams Foreign Languages Professor Relationship Specialty Start Date End Date Shaniqua Price MD [address] [facility] [place] [address] PCP - General Family Medicine 01/12/21 documented as of this encounter
--- OUTSIDE RECORDS SUMMARY | 2023-07-14 02:01 | External Medical Summary ---
Author Name Unknown Address Unknown Organization [facility] [address] [place] [address] Laboratory Report Ordering Provider Test Date Status LESLIE MARROQUIN 05/11/2023 11:28:00 Final Observation Date Value Abnormality Reference (Units ) Status WBC, Total 05/11/2023 11:28:00 9.05 4.00-10.8 0 (K/uL) Final RBC 05/11/2023 11:28:00 2.97 3.85-5.15 (M/uL) Final Hemoglobin 05/11/2023 11:28:00 11.3 Below low normal 12 .0-15.3 (g/dL) Final HCT 05/11/2023 11:28:00 35.6 Below low normal 36. 0-45.2 (%) Final MCV 05/11/2023 11:28:00 119.9 81.5-97.5 (fL) Final MCH 05/11/2023 11:28:00 38.0 27.0-34.0 (pg) Final MCHC 05/11/2023 11:28:00 31.7 32.0-36.0 (g/dL) Final RDW 05/11/2023 11:28:00 12.6 11.5-15.5 (%) Final Platelets 05/11/2023 11:28:00 398 140-400 (K /uL) Final MPV 05/11/2023 11:28:00 10.3 6.6-11.1 ( fL) Final [facility] [place] [address]
--- OUTSIDE RECORDS SUMMARY | 2023-07-14 02:01 | External Medical Summary | Summary of Care ---
Author Name Unknown Organization [facility] Address [address] [place] [address] Phone [phone] Care Team Providers Care Zinc Miner Blasting Name Role Phone Shaniqua Price MD Primary Care Provider Reason for Visit * Reason Comments Medication Management Encounter Details Date Type Department Care Team (Late st Contact Info) Description 05/26/2023 9:00 AM [facility] Pharmacy Pharmacy Hematology Oncology [facility] [address] [place] [address] [facility], [facility] Clinic Hem/Onc [address], [place] [id number] Essential thrombocythemia (HCC)* Allergies Active Allergy Reactions Criticality Noted Date Comments Statins 06/03/2011 Elevation in lfts Sulfa Antibiotics Edema face/lips/tongue High 2009 documented as of this encounter (statuses as of 05/26/2023) Medications Medication Sig Dispensed Refills Start Date [...] as of this encounter (statuses as of 05/26/2023) Active Problems Problem Noted Date Diagnosed Date [...] as of this encounter (statuses as of 05/26/2023) Resolved Problems Problem Noted Date Diagnosed Date Resolved Date Patient left without being seen 02/12/2017 05/26/2018 Kidney disease, chronic, sta ge III (GFR 30-59 ml/min) 08/08/2013 04/26/2020 Overview: Per CKD protocol #1 Dyslipidemia, goal to be determined 04/01/2011 documented as of this encounter (statuses as of 05/26/2023) Immunizations Name Administration Dates Next Due Seasonal [...] this encounter Progress Notes * Nathalie Holt, [facility] - 05/26/2023 10:48 AM EST MEDICATION THERAPY MANAGEMENT HYDROXYUREA TREATMENT PROGRESS NOTE Natasha Li Ramos [id number] Patient Phone Numbers (daughter, Cher) GML: Communication: Left message and MyG message sent Current Treatment: Medication: hydroxyurea Indication: ET Dose: 500mg BID Thu, 500mg daily AOD (DI 01/06/23) Start date: 07/20/18 Primary Billing Typist: Dr. Eaton Is patient prescribed medication for Essential Thrombocythemia? Yes. IPSET- Thrombosis Risk Score: 3(age, WBC count) Interval History: Per OV 09/23/21, Pt s/p esophagoscopy w/diverticulectomy of hypopharynx on 09/10/21 (hydroxyurea held09/08/21-09/15/21) Per MyG 01/18/22, lab monitoring extended to monthly Per MyG 08/11/22, pt requests GML for lab monitoring but will only accept Thursday lab draws Pt admitted to [facility] from 11/24/22-11/28/22 for hip fracture and discharge to [facility] Per Ankita note 12/29/22, pt discharged to home 12/29/22 with home health and will continue weekly lab monitoring Pt has stage 6 dementia Changes to medication list since last visit? No Assessment and Plan: PLT at goal H/H improving All other labs stable Continue current hydrea dose Repeat labs in 2 weeks via GML If labs remain stable will extend monitoring back to monthly Dose adjustment needed based on lab or adverse drug reaction? No Follow up: 06/10 Nathalie Holt, PharmD, OP Clinical Pharmacist, [facility] Oral Chemotherapy [facility] 05/26/2023, 11:00 AM Pertinent labs: Latest Reference Range & Units 04/13/23 10:33 05/11/23 11:28 05/25/23 11:57 WBC 4.00 - 10.80 K/uL 6.87 9.05 6.07 HGB 12.0 - 15.3 g/dL 12.0 11.3 (L) 11.6 (L) HCT 36.0 - 45.2 % 37.0 35.6 (L) 36.2 MCV 81.5 - 97.5 fL 117.1 119.9 116.0 PLT 140 - 400 K/uL 340 398 326 Absolute Neutrophils 1.80 - 7.70 K/uL 5.05 7.46 4.41 Time Spent on Encounter: 6 - 10 [...] Care Team (Late st Contact Info) Description 06/09/2023 9:40 AM EST Laboratory Lab Mobile Phlebotomy [facility] [address] [place] [address] [facility], [facility] Mobile Home Draw [address] [place] [address] 06/10/2023 9:00 AM EST Pharmacy Pharmacy Hematology Oncology [facility] [address] [place] [address] [facility], [facility] Clinic Hem/Onc [address] [place] [address] 11/04/2023 4:00 PM EDT Telemedicine Hematology/Oncology [facility] [place] [address] [facility] [place] [address] Lito Eaton MD [address] [place] [address] Health Maintenance Due Date Last Done Comments Pneumococcal Vaccine: 65+ Years (1 - PCV) 1941 DTaP,Tdap,and Td Vaccines (1 - Tdap) 1954 Zoster Vaccines (1 of 2) 1954 DXA Scan 06/21/2012 06/21/2010, 06/21/2010 Albumin/Creatinine Ratio 05/26/2019 05/26/2018, 01/13 Depression Screening 07/04/2020 07/04/2019 CKD PHOS USE SMARTSET 36943 02/05/202101/14, 08/01/2019, 05/26/2018, Additional history exists COVID-19 Vaccine ( season) 2023 09/17/2020, 08/20/2020, 08/20/2020 Influenza Vaccine (FLU shot) (#1) 2023 03/10/2022, 07/05/2021, 2018 CKD HGB USE SMARTSET 86798 05/25/202405/25, 05/25/2023, 05/11/2023, Additional history exists *BISPHONATE OR OTHER ACCEPTABLE MEDICATION NEEDED FOR OSTEOPOROSIS (REFER TO SMARTSET #1146) Addressed 01/01/2016 (Declined) Overridden w ith the intention of not completing the topic VITAMIN D LEVEL ONCE IN A LIFETIME-USE SMARTSET# 33654 Completed 08/01/2019, 08/13/2010, 05/15/2010 GARDASIL-HPV IMMUNIZATION SERIES Aged Out No longer eligible based on patient's age to complete this topic Hepatitis B Aged Out No longer eligi ble based on patient's age to complete this topic MENINGOCOCCAL (MENACTRA/MENVEO) Aged Out No longer eligible based on patient's age to complete this topic documented as of this encounter Medical Devices Implanted Type Area Door Slinger Device Identifier Shelf Expiration Date Model / Serial / Lot Sureclip 16mm 235cm - [id number] Implanted:Qty: 5 on 09/10/2021 by Estefani Ramirez MD at OR [facility] MICRO TECH ENDOSCOPY 12/18/2023 [id number] / / [id number] documented as of this encounter Visit Diagnoses Diagnosis Essential thrombocythemia (HCC)- Primary Essential thrombocythemia documented in this encounter Care Teams Zinc Miner Blasting Relationship Specialty Start Date End Date Shaniqua Price MD [address] [place] [address] PCP - General Family Medicine 01/12/21 documented as of this encounter
--- OUTSIDE RECORDS SUMMARY | 2023-07-14 02:01 | External Medical Summary | Summary of Care ---
Author Name Unknown Organization [facility] Address [address] [place] [address] Phone [phone] Care Team Providers Care Brim Buster Name Role Phone Shaniqua Price MD Primary Care Provider Reason for Visit * Reason Comments Medication Management Encounter Details Date Type Department Care Team Description 02/10/2023 Pharmacy Pharmacy Hematology Oncology [facility] [address] [place], [place] [phone] [facility] Hem/Onc [address] [place] [address] Essential thrombocythemia (HCC)* Allergies Active [...] this encounter Progress Notes * Nathalie Holt, [facility] - 02/09/2023 1:41 PM EDT MEDICATION THERAPY MANAGEMENT HYDROXYUREA TREATMENT PROGRESS NOTE Natasha Ramos [id number] Patient Phone Numbers (daughter, Cher) GML: / Communication: Left message and MyG message sent Current Treatment: Medication: hydroxyurea Indication: ET Dose: 500mg BID Fri, 500mg daily AOD (DI 01/06/23) Start date: 07/20/18 Primary Deep Fryer Assembler: Dr. Eaton Is patient prescribed medication for Essential Thrombocythemia? Yes. IPSET- Thrombosis Risk Score: 3(age, WBC count) Interval History: Per OV 09/23/21, Pt s/p esophagoscopy w/diverticulectomy of hypopharynx on 09/10/21 (hydroxyurea held09/08/21-09/15/21) Per MyG 01/18/22, lab monitoring extended to monthly Per MyG 08/11/22, pt requests GML for lab monitoring but will only accept Thursday lab draws Pt admitted to [facility] from 11/24/22-11/28/22 for hip fracture and discharge to [facility] Per Ankita note 12/29/22, pt discharged to home 12/29/22 with home health and will continue weekly lab monitoring Pt has stage 6 dementia Changes to medication list since last visit? No Assessment and Plan: PLT at goal All other labs stable Continue current hydrea dose Updated RX sent to pharmacy Due to stable labs since [facility] discharge, lab monitoring extended to every 2 weeks via GML Dose adjustment needed based on lab or adverse drug reaction? No Follow up: 2 weeks Neri ErnstD, BCOP Clinical Pharmacist, [facility] Oral Chemotherapy [facility] 02/09/2023, 1:47 PM Pertinent labs: Latest Reference Range & Units 01/26/23 11:49 02/02/23 09:58 02/09/23 09:50 WBC 4.00 - 10.80 K/uL 7.57 6.57 4.84 HGB 12.0 - 15.3 g/dL 12.8 12.4 12.9 HCT 36.0 - 45.2 % 41.0 38.5 38.9 MCV 81.5 - 97.5 fL 109.0 106.6 107.5 PLT 140 - 400 K/uL 386 318 318 Absolute Neutrophils 1.80 - 7.70 K/uL 5.60 4.91 3.27 Time Spent on Encounter: 11 - 15 minutes Encounter Group: Hematology Encounter Interventions Item Category: Oral Chemotherapy Hydroxurea Problem/Rationale: Effectiveness: Needs additional monitoring - Medication Requires monitoring Safety: Needs additional monitoring - Medication Requires monitoring Adherence - Refill needed Pharmacist Intervention(s): Care coordination, Lab monitoring, and Refill sent Magnitude of Intervention: Modification of medication for asymtomatic patients (Level 2) documented in this encounter Plan of Treatment Upcoming Encounters Date Type Specialty Care Team Description 02/24/2023 Pharmacy Pharmacy [facility], [facility] Clinic Hem/Onc [address] [place] [address] 03/09/2023 Laboratory Laboratory Processing [facility] Mobile Home Draw [address] [place] [address] 04/13/2023 Laboratory Laboratory Processing [facility] Mobile Home Draw [address] [place] [address] 05/06/2023 Office Visit Hematology Oncology Lito Eaton MD [address] [facility] [place] [address] 05/11/2023 Laboratory Laboratory Processing [facility], [facility] Mobile Home Draw [address] [place] [address] 06/08/2023 Laboratory Laboratory Processing [facility], [facility] Mobile Home Draw [address], [place] [phone] Health Maintenance Due Date Last Done Comments [...] 09/17/2020, 08/20/2020, 08/20/2020 CKD PHOS USE SMARTSET 07150 02/05/202101/14, 08/01/2019, 05/26/2018, Additional history exists Influenza Vaccine (FLU shot) (#1) 2023 03/10/2022, 07/05/2021, 2018 CKD HGB USE SMARTSET 11289 02/10/202402/09, 02/09/2023, 02/02/2023, Additional history exists *BISPHONATE OR OTHER ACCEPTABLE MEDICATION NEEDED FOR OSTEOPOROSIS (REFER TO SMARTSET #1146) Addressed 01/01/2016 (Declined) Overridden w ith the intention of not completing the topic VITAMIN D LEVEL ONCE IN A LIFETIME-USE SMARTSET# 01278 Completed 08/01/2019, 08/13/2010, 05/15/2010 GARDASIL-HPV IMMUNIZATION SERIES Aged Out No longer eligible based on patient's age to complete this topic Hepatitis B Aged Out No longer eligi ble based on patient's age to complete this topic MENINGOCOCCAL (MENACTRA/MENVEO) Aged Out No longer eligible based on patient's age to complete this topic documented as of this encounter Medical Devices Implanted Type Area Barrel Line Operator Device Identifier Shelf Expiration Date Model / Serial / Lot Sureclip 16mm 235cm - [id number] Implanted:Qty: 5 on 09/10/2021 by Estefani Ramirez MD at OR [facility] MICRO TECH ENDOSCOPY 12/18/2023 [id number] / / [id number] documented as of this encounter Visit Diagnoses Diagnosis Essential thrombocythemia (HCC)- Primary Essential thrombocythemia documented in this encounter Care Teams Brim Buster Relationship Specialty Start Date End Date Shaniqua Price MD [address] [place] [address] PCP - General Family Medicine 01/12/21 documented as of this encounter
--- OUTSIDE RECORDS SUMMARY | 2023-07-14 02:01 | External Medical Summary ---
Author Name Unknown Address Unknown Organization K0G:LABORATORY [facility] [address] [place] [id number] Laboratory Report Ordering Provider Test Date Status LESLIE MARROQUIN 05/25/2023 11:57:00 Final Observation Date Value Abnormality Reference (Units ) Status WBC, Total 05/25/2023 11:57:00 6.07 4.00-10.8 0 (K/uL) Final RBC 05/25/2023 11:57:00 3.12 3.85-5.15 (M/uL) Final Hemoglobin 05/25/2023 11:57:00 11.6 Below low normal 12 .0-15.3 (g/dL) Final HCT 05/25/2023 11:57:00 36.2 36.0-45.2 (%) Final MCV 05/25/2023 11:57:00 116.0 81.5-97.5 (fL) Final MCH 05/25/2023 11:57:00 37.2 27.0-34.0 (pg) Final MCHC 05/25/2023 11:57:00 32.0 32.0-36.0 (g/dL) Final RDW 05/25/2023 11:57:00 13.6 11.5-15.5 (%) Final Platelets 05/25/2023 11:57:00 326 140-400 (K /uL) Final MPV 05/25/2023 11:57:00 10.5 6.6-11.1 ( fL) Final Performing Location [facility] [address] [place] [id number]
--- OUTSIDE RECORDS SUMMARY | 2023-07-14 02:01 | External Medical Summary | Summary of Care ---
Author Name Unknown Organization [facility] Address [address] [place] [address] Phone [phone] Care Team Providers Care Senior Accounting Clerk Name Role Phone Shaniqua Price MD Primary Care Provider Reason for Visit * Reason Comments Medication Management Encounter Details Date Type Department Care Team Description 03/10/2023 Pharmacy Pharmacy Hematology Oncology [facility] [address] [place], [place] [phone] [facility] Hem/Onc [address] [place] [address] Essential thrombocythemia (HCC)* Allergies Active Allergy Reactions Severity Noted Date Comments Statins 06/03/2011 Elevation in lfts Sulfa Antibiotics Edema face/lips/tongue High 2009 documented as of this encounter (statuses as of 03/10/2023) Medications Medication Sig Dispensed Refills Start Date [...] as of this encounter (statuses as of 03/10/2023) Active Problems Problem Noted Date Amanda-prosthetic fracture [...] as of this encounter (statuses as of 03/10/2023) Resolved Problems Problem Noted Date Resolved Date Patient left without being seen 02/12/2017 05/26/2018 Kidney disease, chronic, stage III (GFR 30-59 ml /min) 08/08/2013 04/26/2020 Overview: Per CKD protocol #1 Dyslipidemia, goal to be determined 04/01/2011 documented as of this encounter (statuses as of 03/10/2023) Immunizations Name Administration Dates Next Due Seasonal [...] * Nathalie Holt, [facility] - 03/09/2023 2:24 PM EDT MEDICATION THERAPY MANAGEMENT HYDROXYUREA TREATMENT PROGRESS NOTE Natasha Ramos [id number] Patient Phone Numbers (daughter, Cher) GML: / Communication: Left message Current Treatment: Medication: hydroxyurea Indication: ET Dose: 500mg BID Fri, 500mg daily AOD (DI 01/06/23) Start date: 07/20/18 Primary Forest Supervisor: Dr. Eaton Is patient prescribed medication for [...] 11/24/22-11/28/22 for hip fracture and discharge to [facility] Per Ankita note 12/29/22, pt discharged to home 12/29/22 with home health and will continue weekly lab monitoring Pt has stage 6 dementia Changes to medication list since last visit? No Assessment and Plan: PLT at goal All other labs stable Continue current hydrea dose Per discussion with Dr. Eaton, lab monitoring extended to monthly via GML Dose adjustment needed based on lab or adverse drug reaction? No Follow up: 04/14 Nathalie Holt, Tai, OP Clinical Pharmacist, [facility] Oral Chemotherapy [facility] 03/10/2023, 10:57 AM Pertinent labs: Latest Reference Range & Units 02/09/23 09:50 02/23/23 09:39 03/09/23 08:49 WBC 4.00 - 10.80 K/uL 4.84 5.73 6.28 HGB 12.0 - 15.3 g/dL 12.9 12.5 12.8 HCT 36.0 - 45.2 % 38.9 36.9 37.9 MCV 81.5 - 97.5 fL 107.5 107.9 110.2 PLT 140 - 400 K/uL 318 345 332 Absolute Neutrophils 1.80 - 7.70 K/uL 3.27 4.15 4.51 Time Spent on Encounter: 6 - 10 minutes Encounter Group: Hematology Encounter Interventions Item Category: Oral Chemotherapy Hydroxurea Problem/Rationale: Effectiveness: Needs additional monitoring - Medication Requires monitoring Safety: Needs additional monitoring - Medication Requires monitoring Pharmacist Intervention(s): Clarification with Provider and Lab monitoring Magnitude of Intervention: Monitoring with direction (Level 1) documented in this encounter Plan of Treatment Upcoming Encounters Date Type Specialty Care Team Description 04/13/2023 Laboratory Laboratory Processing [facility], [facility] Mobile Home Draw [address] [place] [address] 04/14/2023 Pharmacy Pharmacy [facility], [facility] Clinic Hem/Onc [address] [place] [address] 05/06/2023 Office Visit Hematology Oncology Lito Eaton MD [address] [place] [address] 05/11/2023 Laboratory Laboratory Processing [facility], [facility] Mobile Home Draw [address] [place] [address] 06/08/2023 Laboratory Laboratory Processing [facility], [facility] Mobile Home Draw [address] [place] [address] Health Maintenance Due Date Last Done Comments Pneumococcal Vaccine: 65+ Years (1 - PCV) 1941 DTaP,Tdap,and Td Vaccines (1 - Tdap) 1954 Zoster Vaccines (1 of 2) 1954 DXA Scan 06/21/2012 06/21/2010, 06/21/2010 Albumin/Creatinine Ratio 05/26/2019 05/26/2018, 01/13 Depression Screening 07/04/2020 07/04/2019 COVID-19 Vaccine (4 - Mixed Product risk series) 11/12/2020 09/17/2020, 08/20/2020, 08/20/2020 CKD PHOS USE SMARTSET 57996 02/05/202101/14, 08/01/2019, 05/26/2018, Additional history exists Influenza Vaccine (FLU shot) (#1) 2023 03/10/2022, 07/05/2021, 2018 CKD HGB USE SMARTSET 62208 03/09/202403/09, 03/09/2023, 02/23/2023, Additional history exists *BISPHONATE OR OTHER ACCEPTABLE MEDICATION NEEDED FOR OSTEOPOROSIS (REFER TO SMARTSET #1146) Addressed 01/01/2016 (Declined) Overridden w ith the intention of not completing the topic VITAMIN D LEVEL ONCE IN A LIFETIME-USE SMARTSET# [id number] Completed 08/01/2019, 08/13/2010, 05/15/2010 GARDASIL-HPV IMMUNIZATION SERIES Aged Out No longer eligible based on patient's age to complete this topic Hepatitis B Aged Out No longer eligi ble based on patient's age to complete this topic MENINGOCOCCAL (MENACTRA/MENVEO) Aged Out No longer eligible based on patient's age to complete this topic documented as of this encounter Medical Devices Implanted Type Area Paint Roller Winder Device Identifier Shelf Expiration Date Model / Serial / Lot Sureclip 16mm 235cm - [id number] Implanted:Qty: 5 on 09/10/2021 by Estefani Ramirez MD at OR [facility] MICRO TECH ENDOSCOPY 12/18/2023 [id number] / / [id number] documented as of this encounter Visit Diagnoses Diagnosis Essential thrombocythemia (HCC)- Primary Essential thrombocythemia documented in this encounter Care Teams Senior Accounting Clerk Relationship Specialty Start Date End Date Shaniqua Price MD [address] [place], [place] [address] PCP - General Family Medicine 01/12/21 documented as of this encounter
--- OUTSIDE RECORDS SUMMARY | 2023-07-14 02:01 | External Medical Summary ---
Author Name Unknown Address Unknown Organization K0G:LABORATORY [facility] [address] [place] [id number] Laboratory Report Ordering Provider Test Date Status LESLIE MARROQUIN 03/09/2023 08:49:00 Final Observation Date Value Abnormality Reference (Units ) Status WBC, Total 03/09/2023 08:49:00 6.28 4.00-10.8 0 (K/uL) Final RBC 03/09/2023 08:49:00 3.44 3.85-5.15 (M/uL) Final Hemoglobin 03/09/2023 08:49:00 12.8 12.0-15.3 (g/dL) Final HCT 03/09/2023 08:49:00 37.9 36.0-45.2 (%) Final MCV 03/09/2023 08:49:00 110.2 81.5-97.5 (fL) Final MCH 03/09/2023 08:49:00 37.2 27.0-34.0 (pg) Final MCHC 03/09/2023 08:49:00 33.8 32.0-36.0 (g/dL) Final RDW 03/09/2023 08:49:00 16.9 11.5-15.5 (%) Final Platelets 03/09/2023 08:49:00 332 140-400 (K /uL) Final MPV 03/09/2023 08:49:00 10.6 6.6-11.1 ( fL) Final Performing Location LABORATORY [facility] [address] [place] [id number]
--- OUTSIDE RECORDS SUMMARY | 2023-07-14 02:01 | External Medical Summary | Summary of Care ---
Author Name Unknown Organization [facility] Address [address] [place] [address] Phone [phone] Care Team Providers Care Third Cook Name Role Phone Shaniqua Price MD Primary Care Provider Reason for Visit * Reason Comments Follow Up Encounter Details Date Type Department Care Team (Late st Contact Info) Description 05/06/2023 3:30 PM EST Office Visit Hematology/Oncology [facility] [address] [facility] [place] [address] Lito Eaton MD [address] [facility] [address] Thrombocytosis*; Essential thrombocythemia (HCC) Allergies Active Allergy Reactions Criticality Noted Date Comments Statins 06/03/2011 Elevation in lfts Sulfa Antibiotics Edema face/lips/tongue High 2009 documented as of this encounter (statuses as of 05/06/2023) Medications Medication Sig Dispensed Refills Start Date [...] the week 35 Capsule 3 05/06/2023 Active Hydroxyurea 500 MG Oral Capsule (Hydrea)Indications: Essential thrombocythemia (HCC) Take one 500mg cap by mouth two times per day on Thursday and one 500mg cap by mouth once daily all other days of the week 35 Capsule 3 02/09/2023 05/06/20 23 Discontinu ed(Refill) documented as of this encounter (statuses as of 05/06/2023) Active Problems Problem Noted Date Diagnosed Date [...] as of this encounter (statuses as of 05/06/2023) Resolved Problems Problem Noted Date Diagnosed Date Resolved Date Patient left without being seen 02/12/2017 05/26/2018 Kidney disease, chronic, sta ge III (GFR 30-59 ml/min) 08/08/2013 04/26/2020 Overview: Per CKD protocol #1 Dyslipidemia, goal to be determined 04/01/2011 documented as of this encounter (statuses as of 05/06/2023) Immunizations Name Administration Dates Next Due Seasonal Influenza Virus Vac cine, Unspecified Formulation 2018 Seasonal Influenza, Quadrivalent Hd, 65+ Yrs ,07/05/2021 documented as of this encounter Social History Tobacco Use Types Packs/Day Years Used Date Smoking Tobacco: Never Smokeless Tobacco: Never Tobacco Cessation:Counseling Given: Not Answered Alcohol Use Standard Drinks/Week Comments Yes 0 [...] on file documented as of this encounter Last Filed Vital Signs Vital Sign Reading Time Taken Comments Blood Pressure 83/53 05/06/2023 3:02 PM EST Pulse 91 05/06/2023 3:02 PM EST Temperature - - Respiratory Rate 16 05/06/2023 3:02 PM EST Oxygen Saturation - - Inhaled Oxygen Concentration - - Weight 37.5 kg (82 lb 9.6 oz) 05/06/2023 3:02 PM EST Height - - Body Mass Index 15.11 12/11/2022 12:46 PM EDT documented in this encounter Progress Notes * Lito Eaton MD - 05/06/2023 3:22 PM EST Outpatient Consult Note Data Source: Patient, Epic record. Data Source: Patient, Epic record. 05/06/2023 3:22 PM Natasha Ramos [id number] 88 year old Patient Encounter: HEMATOLOGY/ONCOLOGY [facility] Diagnosis: Essential thrombocytosis Current Treatment: On hydroxyurea. Currently she is taking 500 mg 5 times week, Thursday through Thursday. Previous Treatment: None History : 88-year-old female with past medical history significant for the lipids problem and CKD. She had episode of nosebleed last year and went to the emergency room and it was cauterized. Otherwise her past medical history is not very significant for any other bleeding problem or easy bruising. Patient denies any history of fever, night sweats, chest pain, palpitation, headache, blurred vision. Her appetite is good and there is no history of weight loss Earliest blood test in the system is from December of 2012 at that time her platelet count was 519 witha normal WBC count and hemoglobin. Since then she always have high fluctuating level of platelet counts. Last to CBC was done on May 26, 2018 and at that time WBC count was 11.23 hemoglobin was 15 and platelet count 714. Differential shows ANC of 8.14. Peripheral blood smear shows as follow: Red Blood Cells: Normochromic and normocytic with slight anisocytosis. No tear drop cells are seen.No nRBCs are present. No polychromasia is noted. White Blood Cells: Leukocytes are morphologically normal. No blasts or atypical lymphocytes are seen. Platelets: Increased with no clumps. Normal morphology Family history is negative for any hematologic oncology problem JAK2 mutation positive JAK2 QUANTITATIVE Positive Interval History: Overall clinically she is stable without any new symptoms complain. She continued taking hydroxyurea with good tolerance and without any significant side effects toxicity. Currently she is taking 500mg hydroxyurea on daily basis 6 days a week and on Thursday she takes twice a day LABS/IMAGING: Results for orders placed or performed in visit on 04/13/23 CBC Result Value Ref Range WBC 6.87 4.00 - 10.80 K/uL RBC 3.16 3.85 - 5.15 M/uL HGB 12.0 12.0 - 15.3 g/dL HCT 37.0 36.0 - 45.2 % MCV 117.1 81.5 - 97.5 fL MCH 38.0 27.0 - 34.0 pg MCHC 32.4 32.0 - 36.0 g/dL RDW 14.4 11.5 - 15.5 % PLT 340 140 - 400 K/uL MPV 10.7 6.6 - 11.1 fL DIFFERENTIAL, AUTOMATED Result Value Ref Range WBC 6.87 4.00 - 10.80 K/uL Neutrophils % 73.6 40.0 - 75.0 % Lymphocytes % 19.2 18.0 - 42.0 % Monocytes % 4.9 1.0 - 11.0 % Eosinophils % 2.0 0.0 - 6.0 % Basophils % 0.3 0.0 - 2.0 % Absolute Neutrophils 5.05 1.80 - 7.70 K/uL Absolute Lymphocytes 1.32 1.00 - 4.80 K/ul Absolute Monocytes 0.34 0.00 - 1.10 K/uL Absolute Eosinophils 0.14 0.00 - 0.70 K/uL Absolute Basophils 0.02 0.00 - 0.20 K/uL Her blood counts are in acceptable range including WBC count, hemoglobin and platelet count. REVIEW OF SYSTEMS: General: No Fever, chills, night sweats HEENT: No change in visual acuity, blurred or double vision. No epistaxis, facial pain, nasal discharge or change in hearing. Denies dysphagia, no muscosal ulceration, or sores noted. Cardiovascular: No chest pain, VÁZQUEZ, or palpitations Respiratory: No shortness of breath, cough, hemoptysis, or pleuritic chest pain Gastrointestinal: No abdominal pain, nausea, vomiting, diarrhea, rectal pain or bleeding Genitourinary: Denies Hematuria or dysuria Musculoskeletal: Generalized weakness and joint pain. Psychiatric: No vegetative signs of depression Endocrine: No symptoms of hypothyroidism or hyperglycemia Hematologic: No bleeding or lymph nodes noted As mentioned above, all of the systems were reviewed in full and are unremarkable. Past Medical History: Diagnosis Date Chronic constipation Dyslipidemia, goal to be determined Hiatal hernia 11/24/2011 Meniere's disease 2006 no salt in diet Pancreatic cyst 07/12/2020 Statin intolerance 04/29/2011 Current Outpatient Medications Medication Sig Dispense Refill Hydroxyurea 500 MG Oral Capsule (Hydrea) Take one 500mg cap by mouth two times per day on Thursday and one 500mg cap by mouth once daily all other days of the week 35 Capsule 3 Cyanocobalamin 1000 MCG/ML Injection Solution (Cyanocobalamin) .COMPLEX B-12 1000 MCG Oral Tablet Take 1 Tablet by mouth in the morning. Vitamin D 25 MCG (1000 UT) Oral Tablet Take 0.5 Tablets by mouth in the morning. Acetaminophen 325 MG Oral Tablet (Tylenol) Take 2 Tablets by mouth in the morning. 100 Tablet 0 Thick-It Oral Powder (Starch-Maltodextrin) Follow directions on can to thicken liquids to "nectar" consistency 850 g 0 Memantine HCl 10 MG Oral Tablet (Namenda) Take 1 Tablet by mouth 2 times a day with morning and evening meals. 60 Tablet 0 QUEtiapine Fumarate 25 MG Oral Tablet (SEROquel) Take 0.5 Tablets by mouth at bedtime. 15 Tablet 0 Sertraline HCl 25 MG Oral Tablet (Zoloft) Take 1 Tablet by mouth at bedtime. 30 Tablet 0 No current facility-administered medications for this visit. Social History Tobacco Use Smoking status: Never Smokeless tobacco: Never Substance Use Topics Alcohol use: Yes Comment: one drink three times a year Drug use: No Review of patient's allergies indicates: Allergen Reactions Sulfa Antibiotics Edema face/lips/tongue Statins Elevation in lfts PHYSICAL EXAMINATION: General Appearance: Weak appearing patient in no acute distress, In wheelchair BP 83/53 (BP Site: Left Arm, BP Position: Sitting, BP Cuff Size: Pediatric) | Pulse 91 | Resp 16 | Wt 37.5 kg (82 lb 9.6 oz) | BMI 15.11 kg/m | BSA 1.28 m Vitals reviewed. HEENT: No oral or pharyngeal masses, ulceration or thrush noted, no sinus tenderness. Neck is supple with no thyromegaly or JVD noted. Lymph Nodes: No lymphadenopathy noted in the occipital, pre and post auricular, cervical, supra andinfraclavicular, axillary, epitrochlear, inguinal, and popliteal region. Lungs/Thorax: Clear to auscultation, no accessory muscles of respiration being used. Heart: Regular rate and rhythm, normal S1, S2 Abdomen: Soft, nontender, bowel sounds present, no appreciable hepatosplenomegaly, no palpable masses Extremeties: Good pulses bilaterally, no peripheral edema. ASSESSMENT: 88-year-old female with history of essential thrombocytosis positive for JAK2 mutation currently onhydroxyurea with good control of her blood counts. She had fracture of the femur and underwent hip replacement surgery. Since the surgery on walking lateral with help of walker. She is in wheelchair. She is tolerating hydroxyurea very well without any significant side effects toxicity Discussed with the patient and daughter about diagnosis reviewed all the available blood test result with them. PLAN: Continue current dose of hydroxyurea. She will return clinic for follow-up in 6 month. The patient voiced understanding of all of the above. All questions and concerns were addressed in an apparently satisfactory manner. Lito Eaton MD (This note was completed using the dictation program Fluency Direct. As such, there may be misspellings, word substitutions, or other variations that should not change the essence of the clinical content of this encounter note. If there is need for further clarification, please direct questions to me.) documented in this encounter Nursing Notes * Sonja Combs CMA - 05/06/2023 3:03 PM EST Patient identifed by name and birthdate Do you have any concerns about pain management for today's visit? No Living Will or Advance Directive for Health Care as noted on the problem list. [facility] is a way you can talk to your provider on line through e-mail. Would you like to sign up? I can activate it for you? ALREADY ACTIVE Filed Vitals: 05/06/23 1502 BP: 83/53 Pulse: 91 Resp: 16 Weight: 37.5 kg (82 lb 9.6 oz) Patient was instructed to not get up on the exam table/exam chair until directed and assisted by their provider; patient is to remain seated in the chair/ wheelchair/ exam table/ exam chair for fall prevention and safety reasons. Patient is aware to have assistance to step down off exam table/exam chair with personnel. Patient voiced full comprehension of instructions. documented in this encounter Plan of Treatment Upcoming Encounters Date Type Department Care Team (Late st Contact Info) Description 05/11/2023 8:30 AM EST Laboratory Lab Mobile [place]lebotomy [facility] [address] [place] [address] [facility] Home Draw [address] [place] [address] 05/12/2023 9:00 AM EST Pharmacy Pharmacy Hematology Oncology [facility] [address] [place] [address] [facility], [facility] Hem/Onc [address] [place] [address] 06/08/2023 8:30 AM EST Laboratory Lab Mobile [facility]lebotomy [facility] [address] [place] [address] [facility], [facility] Mobile Home Draw [address] [place] [address] 11/04/2023 4:00 PM EDT Telemedicine Hematology/Oncology [facility] [place] [address] [facility] [place] [address] Lito Eaton MD [address] [place] [address] Health Maintenance Due Date Last Done Comments Pneumococcal Vaccine: 65+ Years (1 - PCV) 1941 DTaP,Tdap,and Td Vaccines (1 - Tdap) 1954 Zoster Vaccines (1 of 2) 1954 DXA Scan 06/21/2012 06/21/2010, 06/21/2010 Albumin/Creatinine Ratio 05/26/2019 05/26/2018, 01/13 Depression Screening 07/04/2020 07/04/2019 CKD PHOS USE SMARTSET 91556 02/05/202101/14, 08/01/2019, 05/26/2018, Additional history exists COVID-19 Vaccine ( season) 2023 09/17/2020, 08/20/2020, 08/20/2020 Influenza Vaccine (FLU shot) (#1) 2023 03/10/2022, 07/05/2021, 2018 CKD HGB USE SMARTSET 51749 04/13/202404/13, 04/13/2023, 03/09/2023, Additional history exists *BISPHONATE OR OTHER ACCEPTABLE MEDICATION NEEDED FOR OSTEOPOROSIS (REFER TO SMARTSET #1146) Addressed 01/01/2016 (Declined) Overridden w ith the intention of not completing the topic VITAMIN D LEVEL ONCE IN A LIFETIME-USE SMARTSET# 34600 Completed 08/01/2019, 08/13/2010, 05/15/2010 GARDASIL-HPV IMMUNIZATION SERIES Aged Out No longer eligible based on patient's age to complete this topic Hepatitis B Aged Out No longer eligi ble based on patient's age to complete this topic MENINGOCOCCAL (MENACTRA/MENVEO) Aged Out No longer eligible based on patient's age to complete this topic documented as of this encounter Medical Devices Implanted Type Area Wrestling Coach Device Identifier Shelf Expiration Date Model / Serial / Lot Sureclip 16mm 235cm - [id number] Implanted:Qty: 5 on 09/10/2021 by Estefani Ramirez MD at OR [facility] MICRO TECH ENDOSCOPY 12/18/2023 [id number] / / [id number] documented as of this encounter Visit Diagnoses Diagnosis Thrombocytosis- Primary Essential thrombocythemia Essential thrombocythemia (HCC) Essential thrombocythemia documented in this encounter Care Teams Third Cook Relationship Specialty Start Date End Date Shaniqua Prcie MD [address] [place] [address] PCP - General Family Medicine 01/12/21 documented as of this encounter
--- OUTSIDE RECORDS SUMMARY | 2023-07-14 02:01 | External Medical Summary ---
Author Name Unknown Address Unknown Organization [id number][facility] [address] [place] [id number] Laboratory Report Ordering Provider Test Date Status LESLIE MARROQUIN 02/23/2023 09:39:00 Final Observation Date Value Abnormality Reference (Units ) Status WBC, Total 02/23/2023 09:39:00 5.73 4.00-10.8 0 (K/uL) Final RBC 02/23/2023 09:39:00 3.42 3.85-5.15 (M/uL) Final Hemoglobin 02/23/2023 09:39:00 12.5 12.0-15.3 (g/dL) Final HCT 02/23/2023 09:39:00 36.9 36.0-45.2 (%) Final MCV 02/23/2023 09:39:00 107.9 81.5-97.5 (fL) Final MCH 02/23/2023 09:39:00 36.5 27.0-34.0 (pg) Final MCHC 02/23/2023 09:39:00 33.9 32.0-36.0 (g/dL) Final RDW 02/23/2023 09:39:00 17.0 11.5-15.5 (%) Final Platelets 02/23/2023 09:39:00 345 140-400 (K /uL) Final MPV 02/23/2023 09:39:00 10.7 6.6-11.1 ( fL) Final Performing Location [facility] [address] [place] [id number]
--- OUTSIDE RECORDS SUMMARY | 2023-07-14 02:02 | External Medical Summary ---
Author Name Unknown Address Unknown Organization [id number]:[facility] [address] [address] [place] [id number] Laboratory Report Ordering Provider Test Date Status LESLIE MARROQUIN 02/09/2023 09:50:00 Final Observation Date Value Abnormality Reference (Units ) Status WBC, Total 02/09/2023 09:50:00 4.84 4.00-10.8 0 (K/uL) Final RBC 02/09/2023 09:50:00 3.62 3.85-5.15 (M/uL) Final Hemoglobin 02/09/2023 09:50:00 12.9 12.0-15.3 (g/dL) Final HCT 02/09/2023 09:50:00 38.9 36.0-45.2 (%) Final MCV 02/09/2023 09:50:00 107.5 81.5-97.5 (fL) Final MCH 02/09/2023 09:50:00 35.6 27.0-34.0 (pg) Final MCHC 02/09/2023 09:50:00 33.2 32.0-36.0 (g/dL) Final RDW 02/09/2023 09:50:00 16.3 11.5-15.5 (%) Final Platelets 02/09/2023 09:50:00 318 140-400 (K /uL) Final MPV 02/09/2023 09:50:00 10.8 6.6-11.1 ( fL) Final Performing Location [facility] [address] [place] [id number]
--- OUTSIDE RECORDS SUMMARY | 2023-07-14 02:02 | External Medical Summary ---
Author Name Unknown Address Unknown Organization : Laboratory Report Ordering Provider Test Date Status LESLIE MARROQUIN 01/26/2023 11:49:44 Final Observation Date Value Abnormality Reference (Units ) Status SYNC LEUKOCYTES IN BLOOD BY AUTOMATED COUNT 01/26/2023 11:49:44 7.57 4.00-10.80 (K/uL) Final Segs 01/26/2023 11:49:44 74.0 40.0-75.0 (%) Final Lymphs % 01/26/2023 11:49:44 17.7 Below low normal 18.0-42.0 (%) Final Monos 01/26/2023 11:49:44 5.2 1.0-11.0 (%) Final Eosinophils 01/26/2023 11:49:44 1.7 0.0-6.0 (%) Final Basos 01/26/2023 11:49:44 0.5 0.0-2.0 (%) Final Immature Granulocyte, Percent 01/26/2023 11:49:44 0.9 0.0-2.0 (%) Final Absolute Segs 01/26/2023 11:49:44 5.60 1.80-7.70 (K/uL) Final Lymphs, absolute 01/26/2023 11:49:44 1.34 1.00-4.80 (K/ul) Final Monos, Abs 01/26/2023 11:49:44 0.39 0.00-1.10 (K/uL) Final Eos, Abs 01/26/2023 11:49:44 0.13 0.00-0.70 (K/uL) Final Basos, Abs 01/26/2023 11:49:44 0.04 0.00-0.20 (K/uL) Final Immature Granulocytes, Number 01/26/2023 11:49:44 0.07 0.00-0.20 (K/uL) Final Performing Location
--- OUTSIDE RECORDS SUMMARY | 2023-07-14 02:02 | External Medical Summary | Summary of Care ---
Author Name Unknown Organization [facility] Address [address] [place] [address] Phone [phone] Care Team Providers Care Head Baker Name Role Phone Shaniqua Price MD Primary Care Provider Reason for Visit * Reason Comments Medication Management Encounter Details Date Type Department Care Team Description 02/03/2023 Pharmacy Pharmacy Hematology Oncology [facility] [address] [place], [place] [id number] [facility], [facility] Hem/Onc [address] [place] [address] Essential thrombocythemia (HCC)* Allergies Active Allergy Reactions Severity Noted Date Comments Statins 06/03/2011 Elevation in lfts Sulfa Antibiotics Edema face/lips/tongue High 2009 documented as of this encounter (statuses as of 02/03/2023) Medications Medication Sig Dispensed Refills Start Date [...] the morning. 100 Tablet 0 12/04/2022 Active Hydroxyurea 500 MG Oral Capsule (Hydrea)Indications:E ssential thrombocythemia (HCC) Take 1 Capsule by mouth in the morning. 30 Capsule 3 12/09/2022 Active Additional Information Patient taking differently:500 mg Oral Daily(AM),Take one 500mg cap by mouth two times per day on Thursday and one 500mg cap by mouth once daily all other days of the week, Reported on 01/06/2023 Thick-It Oral Powder (Starch-Maltodextrin) Indications:Oropharyn geal dysphagia [...] at bedtime. 30 Tablet 0 12/29/2022 Active documented as of this encounter (statuses as of 02/03/2023) Active Problems Problem Noted Date Amanda-prosthetic fracture [...] as of this encounter (statuses as of 02/03/2023) Resolved Problems Problem Noted Date Resolved Date Patient left without being seen 02/12/2017 05/26/2018 Kidney disease, chronic, stage III (GFR 30-59 ml /min) 08/08/2013 04/26/2020 Overview: Per CKD protocol #1 Dyslipidemia, goal to be determined 04/01/2011 documented as of this encounter (statuses as of 02/03/2023) Immunizations Name Administration Dates Next Due Seasonal [...] this encounter Progress Notes * Nathalie Holt, [facility] - 02/03/2023 10:18 AM EDT MEDICATION THERAPY MANAGEMENT HYDROXYUREA TREATMENT PROGRESS NOTE Natasha Li Rachel [id number] Patient Phone Numbers (daughter, Cher) GML: / Communication: Left message Current Treatment: Medication: hydroxyurea Indication: ET Dose: 500mg BID Thu, 500mg daily AOD (DI 01/06/23) Start date: 07/20/18 Primary Telephone Supervisor: Dr. Eaton Is patient prescribed medication for Essential Thrombocythemia? Yes. IPSET- Thrombosis Risk Score: 3(age, WBC count) Interval History: Per OV 09/23/21, Pt s/p esophagoscopy w/diverticulectomy of hypopharynx on 09/10/21 (hydroxyurea held09/08/21-09/15/21) Per MyG 01/18/22, lab monitoring extended to monthly Per MyG 08/11/22, pt requests [facility] for lab monitoring but will only accept Thursday lab draws Pt admitted to [facility] from 11/24/22-11/28/22 for hip fracture and [facility], pt discharged to home 12/29/22 with home health and will continue weekly lab monitoring Pt has stage 6 dementia Changes to medication list since last visit? No Assessment and Plan: PLT at goal All other labs stable Continue current hydrea dose Repeat labs in one week with GML Dose adjustment needed based on lab or adverse drug reaction? No Follow up: 1 week Nathalie Holt, PharmD, BCOP Clinical Pharmacist, [facility] Oral Chemotherapy [facility] 02/03/2023, 10:22 AM Pertinent labs: Latest Reference Range & Units 01/19/23 08:53 01/26/23 11:49 02/02/23 09:58 WBC 4.00 - 10.80 K/uL 8.64 7.57 6.57 HGB 12.0 - 15.3 g/dL 13.2 12.8 12.4 HCT 36.0 - 45.2 % 41.4 41.0 38.5 MCV 81.5 - 97.5 fL 106.2 109.0 106.6 PLT 140 - 400 K/uL 444 (H) 386 318 Absolute Neutrophils 1.80 - 7.70 K/uL 6.67 5.60 4.91 Time Spent on Encounter: 6 - 10 minutes Encounter Group: Hematology Encounter Interventions Item Category: Oral Chemotherapy Hydroxurea Problem/Rationale: Effectiveness: Needs additional monitoring - Medication Requires monitoring Safety: Needs additional monitoring - Medication Requires monitoring Pharmacist Intervention(s): Lab monitoring Magnitude of Intervention: Monitoring with direction (Level 1) documented in this encounter Plan of Treatment Upcoming Encounters Date Type Specialty Care Team Description 02/09/2023 Laboratory Laboratory [facility] Draw [address] [place] [address] 03/09/2023 Laboratory Laboratory Processing [facility] [address] [place] [address] 04/13/2023 Laboratory Laboratory Processing [facility] [address] [place] [address] 05/06/2023 Office Visit Hematology Oncology Lito Eaton MD [address] [facility] [place] [address] 05/11/2023 Laboratory Laboratory Processing [facility], [facility] Mobile Home Draw [address] [place] [address] 06/08/2023 Laboratory Laboratory Processing [facility] Mobile Home Draw [address] [place], [place] [id number] Health Maintenance Due Date Last Done Comments [...] 09/17/2020, 08/20/2020, 08/20/2020 CKD PHOS USE SMARTSET 96782 02/05/202101/14, 08/01/2019, 05/26/2018, Additional history exists Influenza Vaccine (FLU shot) (#1) 2023 03/10/2022, 07/05/2021, 2018 CKD HGB USE SMARTSET 93082 02/03/202402/02, 02/02/2023, 01/26/2023, Additional history exists *BISPHONATE OR OTHER ACCEPTABLE MEDICATION NEEDED FOR OSTEOPOROSIS (REFER TO SMARTSET #1146) Addressed 01/01/2016 (Declined) Overridden w ith the intention of not completing the topic VITAMIN D LEVEL ONCE IN A LIFETIME-USE SMARTSET# [id number] Completed 08/01/2019, 08/13/2010, 05/15/2010 GARDASIL-HPV IMMUNIZATION SERIES Aged Out No longer eligible based on patient's age to complete this topic Hepatitis B Aged Out No longer eligi ble based on patient's age to complete this topic MENINGOCOCCAL (MENACTRA/MENVEO) Aged Out No longer eligible based on patient's age to complete this topic documented as of this encounter Medical Devices Implanted Type Area Flyer Repairer Device Identifier Shelf Expiration Date Model / Serial / Lot Sureclip 16mm 235cm - [id number] Implanted:Qty: 5 on 09/10/2021 by Estefani Ramirez MD at OR [facility] MICRO TECH ENDOSCOPY 12/18/2023 [id number] / / [id number] documented as of this encounter Visit Diagnoses Diagnosis Essential thrombocythemia (HCC)- Primary Essential thrombocythemia documented in this encounter Care Teams Head Baker Relationship Specialty Start Date End Date Shaniqua Price MD [address] [place] [place] [address] PCP - General Family Medicine 01/12/21 documented as of this encounter
--- OUTSIDE RECORDS SUMMARY | 2023-07-14 02:02 | External Medical Summary ---
Author Name Unknown Address Unknown Organization K0G:[facility] [address] [place] [address] Laboratory Report Ordering Provider Test Date Status LESLIE MARROQUIN 02/02/2023 09:58:00 Final Observation Date Value Abnormality Reference (Units ) Status WBC, Total 02/02/2023 09:58:00 6.57 4.00-10.8 0 (K/uL) Final RBC 02/02/2023 09:58:00 3.61 3.85-5.15 (M/uL) Final Hemoglobin 02/02/2023 09:58:00 12.4 12.0-15.3 (g/dL) Final HCT 02/02/2023 09:58:00 38.5 36.0-45.2 (%) Final MCV 02/02/2023 09:58:00 106.6 81.5-97.5 (fL) Final MCH 02/02/2023 09:58:00 34.3 27.0-34.0 (pg) Final MCHC 02/02/2023 09:58:00 32.2 32.0-36.0 (g/dL) Final RDW 02/02/2023 09:58:00 16.7 11.5-15.5 (%) Final Platelets 02/02/2023 09:58:00 318 140-400 (K /uL) Final MPV 02/02/2023 09:58:00 10.4 6.6-11.1 ( fL) Final Performing Location [facility] [address] [place] [address]
--- OUTSIDE RECORDS SUMMARY | 2023-07-14 02:02 | External Medical Summary ---
Author Name Unknown Address Unknown Organization K0G:[facility] [place] [address] - [address] [place] [address] Laboratory Report Ordering Provider Test Date Status LESLIE MARROQUIN 01/19/2023 08:53:00 Final Observation Date Value Abnormality Reference (Units ) Status WBC, Total 01/19/2023 08:53:00 8.64 4.00-10.8 0 (K/uL) Final RBC 01/19/2023 08:53:00 3.90 3.85-5.15 (M/uL) Final Hemoglobin 01/19/2023 08:53:00 13.2 12.0-15.3 (g/dL) Final HCT 01/19/2023 08:53:00 41.4 36.0-45.2 (%) Final MCV 01/19/2023 08:53:00 106.2 81.5-97.5 (fL) Final MCH 01/19/2023 08:53:00 33.8 27.0-34.0 (pg) Final MCHC 01/19/2023 08:53:00 31.9 32.0-36.0 (g/dL) Final RDW 01/19/2023 08:53:00 16.3 11.5-15.5 (%) Final Platelets 01/19/2023 08:53:00 444 Above high normal 14 0-400 (K/uL) Final MPV 01/19/2023 08:53:00 10.6 6.6-11.1 ( fL) Final Performing Location [facility] [place] [address] - [address] [place] [id number]
--- OUTSIDE RECORDS SUMMARY | 2023-07-14 02:02 | External Medical Summary ---
Author Name Unknown Address Unknown Organization K0G:[facility] [place] [address] - [address] [place] [address] Laboratory Report Ordering Provider Test Date Status LESLIE MARROQUIN 02/02/2023 09:58:00 Final Observation Date Value Abnormality Reference (Units ) Status SYNC LEUKOCYTES IN BLOOD BY AUTOMATED COUNT 02/02/2023 09:58:00 6.57 4.00-10.80 (K/uL) Final Segs 02/02/2023 09:58:00 74.7 40.0-75.0 (%) Final Lymphs % 02/02/2023 09:58:00 17.8 Below low normal 18.0-42.0 (%) Final Monos 02/02/2023 09:58:00 4.7 1.0-11.0 (%) Final Eosinophils 02/02/2023 09:58:00 2.3 0.0-6.0 (%) Final Basos 02/02/2023 09:58:00 0.5 0.0-2.0 (%) Final Absolute Segs 02/02/2023 09:58:00 4.91 1.80-7.70 (K/uL) Final Lymphs, absolute 02/02/2023 09:58:00 1.17 1.00-4.80 (K/ul) Final Monos, Abs 02/02/2023 09:58:00 0.31 0.00-1.10 (K/uL) Final Eos, Abs 02/02/2023 09:58:00 0.15 0.00-0.70 (K/uL) Final Basos, Abs 02/02/2023 09:58:00 0.03 0.00-0.20 (K/uL) Final Performing Location [facility] [place] [address] [place] [address]
--- OUTSIDE RECORDS SUMMARY | 2023-07-14 02:02 | External Medical Summary | Summary of Care ---
Author Name Unknown Organization [facility] Address [address] [place] [address] Phone [phone] Care Team Providers Care Distribution Warehouse Manager Name Role Phone Shaniqua Price MD Primary Care Provider Reason for Visit * Reason Comments Medication Management Encounter Details Date Type Department Care Team Description 01/20/2023 Pharmacy Pharmacy Hematology Oncology [facility]3] [address], [place] [id number] [facility], [facility] Hem/Onc [address] [place] [address] Essential thrombocythemia (HCC)* Allergies Active Allergy Reactions Severity Noted Date Comments Statins 06/03/2011 Elevation in lfts Sulfa Antibiotics Edema face/lips/tongue High 2009 documented as of this encounter (statuses as of 01/19/2023) Medications Medication Sig Dispensed Refills Start Date [...] as of this encounter (statuses as of 01/19/2023) Active Problems Problem Noted Date Amanda-prosthetic fracture [...] as of this encounter (statuses as of 01/19/2023) Resolved Problems Problem Noted Date Resolved Date Patient left without being seen 02/12/2017 05/26/2018 Kidney disease, chronic, stage III (GFR 30-59 ml /min) 08/08/2013 04/26/2020 Overview: Per CKD protocol #1 Dyslipidemia, goal to be determined 04/01/2011 documented as of this encounter (statuses as of 01/19/2023) Immunizations Name Administration Dates Next Due Seasonal [...] this encounter Progress Notes * Nathalie Holt, [facility] - 01/19/2023 2:39 PM EDT MEDICATION THERAPY MANAGEMENT HYDROXYUREA TREATMENT PROGRESS NOTE Natasha Li Rachel [phone] Patient Phone Numbers (daughter, Cher) GML: / Communication: Left message Current Treatment: Medication: hydroxyurea Indication: ET Dose: 500mg BID Thu, 500mg daily AOD (DI 01/06/23) Start date: 07/20/18 Primary [place] Tower Loader: Dr. Eaton Is patient prescribed medication for Essential Thrombocythemia? Yes. IPSET- Thrombosis Risk Score: 3(age, WBC count) Interval History: Per OV 09/23/21, Pt s/p esophagoscopy w/diverticulectomy of hypopharynx on 09/10/21 (hydroxyurea held 09/08/21-09/15/21) Per MyG 01/18/22, lab monitoring extended to monthly Per MyG 08/11/22, pt requests [facility] for lab monitoring but will only accept Thursday lab draws Pt admitted to [facility] from 11/24/22-11/28/22 for hip fracture and discharge to [facility] Per Ankita note 12/29/22, pt discharged to home 12/29/22 with home health and will continue weekly lab monitoring Pt has stage 6 dementia Changes to medication list since last visit? No Assessment and Plan: PLT at goal WBC/ANC declining to WNL All other labs stable Continue current hydrea dose Repeat labs in one week with GML Dose adjustment needed based on lab or adverse drug reaction? No Follow up: 1 week Nathalie Holt, PharmD, BCOP Clinical Pharmacist, [facility] Oral Chemotherapy [facility] 01/19/2023, 3:15 PM Pertinent labs: Latest Reference Range & Units 01/05/23 09:15 01/12/23 09:15 01/19/23 08:53 WBC 4.00 - 10.80 K/uL 9.17 10.87 (H) 8.64 HGB 12.0 - 15.3 g/dL 13.0 12.5 13.2 HCT 36.0 - 45.2 % 39.5 38.0 41.4 MCV 81.5 - 97.5 fL 103.1 103.3 106.2 PLT 140 - 400 K/uL 534 (H) 486 (H) 444 (H) Absolute Neutrophils 1.80 - 7.70 K/uL 7.05 9.55 (H) 6.67 Time Spent on Encounter: 6 - 10 [...] [facility] [address] [place] [address] 03/09/2023 Laboratory Laboratory Processing [facility] [address] [place] [address] 04/13/2023 Laboratory Laboratory Processing [facility], [facility] Mobile Home Draw [address] [place] [address] 05/06/2023 Office Visit Hematology Oncology Lito Eaton MD [address] [place] [address] 05/11/2023 Laboratory Laboratory Processing [facility], [facility] Mobile Home Draw [address], [place] [phone] 06/08/2023 Laboratory Laboratory Processing [facility], [facility] Mobile Home Draw [address], [place] [phone] Health Maintenance Due Date Last Done Comments [...] 09/17/2020, 08/20/2020, 08/20/2020 CKD PHOS USE SMARTSET 77418 02/05/202101/14, 08/01/2019, 05/26/2018, Additional history exists Influenza Vaccine (FLU shot) (#1) 2023 03/10/2022, 07/05/2021, 2018 CKD HGB USE SMARTSET 46119 01/20/202401/19, 01/19/2023, 01/12/2023, Additional history exists *BISPHONATE OR OTHER ACCEPTABLE MEDICATION NEEDED FOR OSTEOPOROSIS (REFER TO SMARTSET #1146) Addressed 01/01/2016 (Declined) Overridden w ith the intention of not completing the topic VITAMIN D LEVEL ONCE IN A LIFETIME-USE SMARTSET# 75205 Completed 08/01/2019, 08/13/2010, 05/15/2010 GARDASIL-HPV IMMUNIZATION SERIES Aged Out No longer eligible based on patient's age to complete this topic Hepatitis B Aged Out No longer eligi ble based on patient's age to complete this topic MENINGOCOCCAL (MENACTRA/MENVEO) Aged Out No longer eligible based on patient's age to complete this topic documented as of this encounter Medical Devices Implanted Type Area Energy Efficiency Finance Manager Device Identifier Shelf Expiration Date Model / Serial / Lot Sureclip 16mm 235cm - [id number] Implanted:Qty: 5 on 09/10/2021 by Estefani Ramirez MD at OR [facility] MICRO TECH ENDOSCOPY 12/18/2023 [id number] / / [id number] documented as of this encounter Visit Diagnoses Diagnosis Essential thrombocythemia (HCC)- Primary Essential thrombocythemia documented in this encounter Care Teams Distribution Warehouse Manager Relationship Specialty Start Date End Date Shaniqua Price MD [address] [place] [address] PCP - General Family Medicine 01/12/21 documented as of this encounter
--- OUTSIDE RECORDS SUMMARY | 2023-07-14 02:02 | External Medical Summary ---
Author Name Unknown Address Unknown Organization K0G:[facility] [place] [address] [place] [address] Laboratory Report Ordering Provider Test Date Status LESLIE MARROQUIN 01/19/2023 08:53:00 Final Observation Date Value Abnormality Reference (Units ) Status SYNC LEUKOCYTES IN BLOOD BY AUTOMATED COUNT 01/19/2023 08:53:00 8.64 4.00-10.80 (K/uL) Final Segs 01/19/2023 08:53:00 77.2 Above high normal 40.0-75.0 (%) Final Lymphs % 01/19/2023 08:53:00 16.3 Below low normal 18.0-42.0 (%) Final Monos 01/19/2023 08:53:00 4.3 1.0-11.0 (%) Final Eosinophils 01/19/2023 08:53:00 1.7 0.0-6.0 (%) Final Basos 01/19/2023 08:53:00 0.5 0.0-2.0 (%) Final Absolute Segs 01/19/2023 08:53:00 6.67 1.80-7.70 (K/uL) Final Lymphs, absolute 01/19/2023 08:53:00 1.41 1.00-4.80 (K/ul) Final Monos, Abs 01/19/2023 08:53:00 0.37 0.00-1.10 (K/uL) Final Eos, Abs 01/19/2023 08:53:00 0.15 0.00-0.70 (K/uL) Final Basos, Abs 01/19/2023 08:53:00 0.04 0.00-0.20 (K/uL) Final Performing Location [facility] [place] [place] [address] [place] [id number]
--- OUTSIDE RECORDS SUMMARY | 2023-07-14 02:02 | External Medical Summary | Summary of Care ---
Author Name Unknown Organization [facility] Address [address] [place] [address] Phone [phone] Care Team Providers Care Right Of Way Man Name Role Phone Shaniqua Price MD Primary Care Provider Reason for Visit * Reason Comments Medication Management Encounter Details Date Type Department Care Team Description 01/27/2023 Pharmacy Pharmacy Hematology Oncology [facility] [address] [place], [place] [id number] [facility] Hem/Onc [address] [place] [address] Essential thrombocythemia (HCC)* Allergies Active Allergy Reactions Severity Noted Date Comments Statins 06/03/2011 Elevation in lfts Sulfa Antibiotics Edema face/lips/tongue High 2009 documented as of this encounter (statuses as of 01/27/2023) Medications Medication Sig Dispensed Refills Start Date [...] as of this encounter (statuses as of 01/27/2023) Active Problems Problem Noted Date Amanda-prosthetic fracture [...] as of this encounter (statuses as of 01/27/2023) Resolved Problems Problem Noted Date Resolved Date Patient left without being seen 02/12/2017 05/26/2018 Kidney disease, chronic, stage III (GFR 30-59 ml /min) 08/08/2013 04/26/2020 Overview: Per CKD protocol #1 Dyslipidemia, goal to be determined 04/01/2011 documented as of this encounter (statuses as of 01/27/2023) Immunizations Name Administration Dates Next Due Seasonal [...] Nathalie Holt, [facility] - 01/27/2023 8:13 AM EDT MEDICATION THERAPY MANAGEMENT HYDROXYUREA TREATMENT PROGRESS NOTE Natasha Li Rachel [phone] Patient Phone Numbers (daughter, Cher) GML: / Communication: Left message Current Treatment: Medication: hydroxyurea Indication: ET Dose: 500mg BID Thu, 500mg daily AOD (DI 01/06/23) Start date: 07/20/18 Primary Phthalic Acid Purifier: Dr. Eaton Is patient prescribed medication for Essential Thrombocythemia? Yes. IPSET- Thrombosis Risk Score: 3(age, WBC count) Interval History: Per OV 09/23/21, Pt s/p esophagoscopy w/diverticulectomy of hypopharynx on 09/10/21 (hydroxyurea held09/08/21-09/15/21) Per MyG 01/18/22, lab monitoring extended to monthly Per MyG 08/11/22, pt requests [facility] for lab monitoring but will only accept Thursday lab draws Pt admitted to [facility] from 11/24/22-11/28/22 for hip fracture and discharge to [facility] Per Ankita note 12/29/22, pt discharged [...] week Nathalie Holt, PharmD, BCOP Clinical Pharmacist, [facility] Oral Chemotherapy [facility] 01/27/2023, 10:19 AM Pertinent labs: Latest Reference Range & Units 01/12/23 09:15 01/19/23 08:53 01/26/23 11:49 WBC 4.00 - 10.80 K/uL 10.87 (H) 8.64 7.57 HGB 12.0 - 15.3 g/dL 12.5 13.2 12.8 HCT 36.0 - 45.2 % 38.0 41.4 41.0 MCV 81.5 - 97.5 fL 103.3 106.2 109.0 PLT 140 - 400 K/uL 486 (H) 444 (H) 386 Absolute Neutrophils 1.80 - 7.70 K/uL 9.55 (H) 6.67 5.60 Time Spent on Encounter: 6 - 10 [...] Encounters Date Type Specialty Care Team Description 02/03/2023 Pharmacy Pharmacy [facility] Hem[facility]Onc [address] [place] [address] 02/09/2023 Laboratory Laboratory Processing [facility] Draw [address] [place] [address] 03/09/2023 Laboratory Laboratory Processing [facility] [address] [place] [address] 04/13/2023 Laboratory Laboratory Processing [facility] [address] [place] [address] 05/06/2023 Office Visit Hematology Oncology Lito Eaton MD [address] [place] [address] 05/11/2023 Laboratory Laboratory Processing [facility] [address], [place] [phone] 06/08/2023 Laboratory Laboratory Processing [facility] Draw [address] [place] [address] Health Maintenance Due Date Last Done Comments [...] 09/17/2020, 08/20/2020, 08/20/2020 CKD PHOS USE SMARTSET [id number] 02/05/202101/14, 08/01/2019, 05/26/2018, Additional history exists Influenza Vaccine (FLU shot) (#1) 2023 03/10/2022, 07/05/2021, 2018 CKD HGB USE SMARTSET 79874 01/27/202401/26, 01/26/2023, 01/19/2023, Additional history exists *BISPHONATE OR OTHER ACCEPTABLE MEDICATION NEEDED FOR OSTEOPOROSIS (REFER TO SMARTSET #1146) Addressed 01/01/2016 (Declined) Overridden w ith the intention of not completing the topic VITAMIN D LEVEL ONCE IN A LIFETIME-USE SMARTSET# 30111 Completed 08/01/2019, 08/13/2010, 05/15/2010 GARDASIL-HPV IMMUNIZATION SERIES Aged Out No longer eligible based on patient's age to complete this topic Hepatitis B Aged Out No longer eligi ble based on patient's age to complete this topic MENINGOCOCCAL (MENACTRA/MENVEO) Aged Out No longer eligible based on patient's age to complete this topic documented as of this encounter Medical Devices Implanted Type Area Seafood Clerk Device Identifier Shelf Expiration Date Model / Serial / Lot Sureclip 16mm 235cm - [id number] Implanted:Qty: 5 on 09/10/2021 by Estefani Ramirez MD at OR [facility] MICRO TECH ENDOSCOPY 12/18/2023 [id number] / / [id number] documented as of this encounter Visit Diagnoses Diagnosis Essential thrombocythemia (HCC)- Primary Essential thrombocythemia documented in this encounter Care Teams Right Of Way Man Relationship Specialty Start Date End Date Shaniqua Price MD [address] [facility] [place] [address] PCP - General Family Medicine 01/12/21 documented as of this encounter
--- OUTSIDE RECORDS SUMMARY | 2023-07-14 02:02 | External Medical Summary ---
Author Name Unknown Address Unknown Organization : Laboratory Report Ordering Provider Test Date Status LESLIE MARROQUIN 01/26/2023 11:49:44 Final Observation Date Value Abnormality Reference (Units ) Status WBC, Total 01/26/2023 11:49:44 7.57 4.00-10.80 (K/uL) Final RBC 01/26/2023 11:49:44 3.76 3.85-5.15 (M/uL) Final Hemoglobin 01/26/2023 11:49:44 12.8 12.0-15.3 (g/dL) Final HCT 01/26/2023 11:49:44 41.0 36.0-45.2 (%) Final MCV 01/26/2023 11:49:44 109.0 81.5-97.5 (fL) Final MCH 01/26/2023 11:49:44 34.0 27.0-34.0 (pg) Final MCHC 01/26/2023 11:49:44 31.2 32.0-36.0 (g/dL) Final RDW 01/26/2023 11:49:44 16.9 11.5-15.5 (%) Final Platelets 01/26/2023 11:49:44 386 140-400 (K/uL) Final MPV 01/26/2023 11:49:44 10.8 6.6-11.1 (fL) Final Nucleated erythrocytes/100 leukocytes [Ratio] in Blood by Automated count 01/26/2023 11:49:44 0 <=0 (/100 WBCs) Final Performing Location
[2023-07-14] MEDS: ENOXAPARIN INJ 30 MG/0.3 ML SYR SQ SCH (07:28)
[2023-07-14] MEDS: MEMANTINE HCL 10 MG TAB PO SCH (07:32)
[2023-07-14 08:38] LABS: Hematocrit (blood only) 36.4 % (37.0-47.0); Hemoglobin 11.7 g/dl (12.0-16.0); Mean Corpuscular Hemoglobin 36.7 pg (25.0-34.0); Mean Corpuscular Hgb Conc 32.1 g/dL (32.0-36.0); Mean Corpuscular Volume 114.1 fL (80.0-100.0); Mean Platelet Volume 9.8 fL (9.4-12.4); Platelet Count 281 K/uL (130-400); RDW Coefficient of Variation 14.7 % (11.5-14.5); RDW Standard Deviation 62.4 fL (36.4-46.3); Red Blood Count 3.19 M/uL (4.20-5.40); White Blood Count 3.89 K/ul (4.8-10.8)
[2023-07-14 08:50] LABS: BUN Creatinine Ratio 30.8 (10-20); Calcium 8.8 mg/dl (8.6-10.3); Est GFR (African American) 78.1 ml/min; Est GFR (Non-African American) 67.4 ml/min; Potassium 4.3 mmol/L (3.5-5.1)
[2023-07-14] MEDS: HYDROXYUREA 500 MG CAP PO SCH (09:21)
--- NOTE | 2023-07-14 12:08 | Electrocardiogram Report ---
Test Reason : Blood Pressure : / mmHG Vent. Rate : 085 BPM Atrial Rate : 085 BPM P-R Int : 142 ms QRS Dur : 058 ms QT Int : 370 ms P-R-T Axes : 007 031 049 degrees QTc Int : 440 ms Poor data quality, interpretation may be adversely affected Normal sinus rhythm Nonspecific T wave abnormality Abnormal ECG When compared with ECG of 24-NOV-2022 12:23, Non-specific change in ST segment in Anterior leads Confirmed by Billy Stinson ([id number]) on 07/14/2023 12:07:46 PM Referred By: REFERRED SELF Confirmed By:Billy Stinson
[2023-07-14 18:39] LABS: C Reactive Protein 1.54 mg/dl (0-0.5)
[2023-07-14 20:41] VITALS: RESP 18
[2023-07-14] MEDS: SERTRALINE HCL 50 MG TABLET PO SCH (20:43)
[2023-07-14] MEDS: QUEtiapine FUMARATE 25 MG TABLET PO SCH (20:43)
--- NOTE | 2023-07-14 23:02 | Hospitalist Progress Note ---
Date of Service July 14, 2023 Assessment & Plan (1) COVID-19: Plan: 88 yo female with history of HTN, HLP, CKD and Dementia presenting from home with one day of cough, weakness, fatigue and worsening confusion. Patient tested POSITIVE on a home Covid-19 test yesterday 07/13/23. She has never had Covid before and is up to date with her vaccinations. Saturations are adequate on room air. No respiratory distress. -Admit to medical -Maintain isolation precautions -Monitor respiratory status - no indication for treatment with Remdesivir or Dexamethasone at this time as oxygenation has been adequate on RA -Tylenol PRN -Guaifenesin PRN continue supportive care (2) Dementia: Plan: Patient with underlying dementia with acute metabolic encephalopathy as well secondary to Covid-19 infection. -Frequent orientation -Fall precautions -Continue Memantine -Continue Seroquel -Continue Sertraline F/E/N - Saline lock. Electroltyes WNL. Regular diet/Pureed with honey thick liquids and aspiration precautions Ppx - Lovenox 30mg SQ daily for DVT prophylaxis Code - DNR/DNI per discussion with family Dispo - Observation to medical Admission and Anticipated Discharge Date Admission Date: July 13, 2023 Subjective Patient reports feeling better. Review of Systems Review of Systems: All systems reviewed & are unremarkable except as noted in HPI & below Physical Exam Physical Exam: General: frail, elderly female resting in bed Skin: warm, dry, intact HEENT: NC/AT, PERRL, EOMI Heart: +S1/S2, regular, no m/r/g Lungs: equal air entry bilaterally, no rales/rhonchi/wheezes Abd: +BS, soft, NT/ND, no masses/organomegaly/ascites Ext: warm, 2+ pulses in UE/LE bilaterally Neuro: grossly nonfocal Results & Data Results & Data Vital Signs (Past 12 Hours) Vital Signs Temp Pulse Resp BP Pulse Ox O2 Del Method 07/14/23 20:45 Room Air 07/14/23 20:40 37.0 C 68 18 124/75 96 Room Air 07/14/23 15:49 36.6 C 16 142/79 H Room Air PG Care Time/CCT Total # of Minutes Spent Total Time Spent with Patient: Total time spent is greater than 50% in coordination of care (as documented) at patient's floor/unit and/or counseling patient: Coding Level of Care Code 65877 SUB INP/OBS CARE MIN Diagnoses COVID-19 U07.1 Dementia F03.90
[2023-07-15 06:54] LABS: BUN Creatinine Ratio 31.1 (10-20); C Reactive Protein 1.91 mg/dl (0-0.5); Calcium 8.6 mg/dl (8.6-10.3); Creatinine Clr Calc Pharmacy 35.8 ml/min; Est GFR (African American) 83.2 ml/min; Est GFR (Non-African American) 71.8 ml/min; Potassium 3.8 mmol/L (3.5-5.1)
[2023-07-15 06:55] LABS: Hematocrit (blood only) 35.4 % (37.0-47.0); Hemoglobin 11.3 g/dl (12.0-16.0); Mean Corpuscular Hemoglobin 36.6 pg (25.0-34.0); Mean Corpuscular Hgb Conc 31.9 g/dL (32.0-36.0); Mean Corpuscular Volume 114.6 fL (80.0-100.0); Mean Platelet Volume 9.8 fL (9.4-12.4); Platelet Count 269 K/uL (130-400); RDW Coefficient of Variation 14.5 % (11.5-14.5); RDW Standard Deviation 61.2 fL (36.4-46.3); Red Blood Count 3.09 M/uL (4.20-5.40); White Blood Count 3.11 K/ul (4.8-10.8)
[2023-07-15 08:01] VITALS: O2SAT 93
[2023-07-15] MEDS: dexAMETHasone 4 MG TAB PO ONE (13:44)
--- NOTE | 2023-07-15 13:54 | Discharge Summary ---
Date of Service July 15, 2023 Admission HPI Per Admitting Provider Natasha Ramos is an 88yo female with history of HTN, HLP, CKD and Dementia presenting from home with Covid-19 infection. Patient's daughters are at bedside and offer history. Yesterday 07/12/23 patient developed fatigue, worsening confusion, generalized weakness, poor appetite and inability to stand or ambulate. She also has had a dry cough and "raspy breathing" which has progressed througout the day today. She did test POSITIVE for Covid-19 on a home test yesterday 07/13/23. Patient has become more confused throughout the day with grasping at things in the air as well as hallucinating and conversing with people that aren't there. Daughters state that at baseline patient is able to sit up and feed herself as well as ambulate with a walker. In the ER she is afebrile, HD stable. NO hypoxia. Principal Diagnosis COVID 19 Discharge Exam General: frail, elderly female resting in bed Skin: warm, dry, intact HEENT: NC/AT, PERRL, EOMI Heart: +S1/S2, regular, no m/r/g Lungs: equal air entry bilaterally, no rales/rhonchi/wheezes Abd: +BS, soft, NT/ND, no masses/organomegaly/ascites Ext: warm, 2+ pulses in UE/LE bilaterally Neuro: grossly nonfocal Discharge Data Allergies Allergy/AdvReac Type Severity Reaction Status Date / Time Sulfa (Sulfonamide Allergy Intermediate Hives Verified 07/13/23 20:54 Antibiotics) Lohyueq-[id number]-JoD Reductase AdvReac Severe ELAVATION Verified 07/13/23 20:54 Inhibitor OF LFTS [Gajfwbn-Trj-Uwv Reductase Inhibitor] Consultations 07/13/23 21:11 ED Decision to Admit Stat Hospital Course (1) COVID-19: 88 yo female with history of HTN, HLP, CKD and Dementia presenting from home with one day of cough, weakness, fatigue and worsening confusion. Patient tested POSITIVE on a home Covid-19 test yesterday 07/13/23. She has never had Covid before and is up to date with her vaccinations. Saturations are adequate on room air. No respiratory distress. -Admit to medical -Maintain isolation precautions -Monitor respiratory status - no indication for treatment with Remdesivir or Dexamethasone at this time as oxygenation has been adequate on RA -Tylenol PRN -Guaifenesin PRN continue supportive care Will dischare on decadron as O2 sat was low 90s. (2) Dementia: Patient with underlying dementia with acute metabolic encephalopathy as well secondary to Covid-19 infection. -Frequent orientation -Fall precautions -Continue Memantine -Continue Seroquel -Continue Sertraline Total Time Total Time Spent Total Time Spent (In Minutes): 32 Discharge Plan Discharge Items Patient Disposition: Home - Self-Care Reason For Visit: COVID-19, WEAKNESS Discharge Diagnosis: COVID 19 Activity: Resume your previous activity Non-emergency contact: Primary Care Provider Call non-emergency contact if: you have any medication questions Follow-up/Referrals: Shaniqua Price MD [Primary Care Provider] - 07/17/23 10:20 am Diet: Regular Diet Texture: Pureed (blended smooth) Addtl Attending Provider Instructions: You were diagnosed with COVID 19. Thankfully your symptoms, have improved and you never required supplemental oxygen. At this moment, we will continue on Decadron for 9 more days. This medication helps decrease symptoms and the risk of dying from COVID 19. Please take your next dose tomorrow morning. Basic recommendations for COVID 19: Please continue to quarantine for 3 more days, and then for the next 5 days, please wear a mask if out in public. It was a pleasure Mrs. Ramos. Pending Studies at Discharge: No Stand-Alone Forms: My [facility] [employer], Smoking Cessation Medications and DC Order Prescriptions: New dexamethasone 6 mg tablet 6 mg PO DAILY Qty: 9 0RF Continued cyanocobalamin (vitamin B-12) 1,000 mcg/mL solution 1,000 mcg subcut MONTHLY Qty: 1 5RF Rx Instructions: 1,000 mcg subcutaneously ONCE A MONTH. (DME) BD SafetyGlide Syringe 3 mL 25 x 5/8" syringe See Rx Instructions .ROUTE .MEDSUPPLY Qty: 10 6RF Rx Instructions: As directed memantine 10 mg tablet 10 mg PO BID 90 Days Qty: 180 3RF quetiapine 25 mg tablet 25 mg PO HS Qty: 30 2RF sertraline 25 mg tablet 50 mg PO HS Qty: 90 1RF Lagevrio (EUA) 200 mg capsule 800 mg PO Q12H 5 Days Qty: 40 0RF senna 8.6 mg capsule 8.6 mg PO DAILY PRN (Reason: constipation) cholecalciferol (vitamin D3) [Vitamin D3] 25 mcg (1,000 unit) tablet 25 mcg PO DAILY hydroxyurea 500 mg capsule See Rx Instructions .ROUTE .COMPLEX Rx Instructions: take 1 capsule twice a day on FRIDAYS and 1 capsule all other days of the week cyanocobalamin (vitamin B-12) [Vitamin B-12] 1,000 mcg Tablet 1,000 mcg PO DAILY Discharge Orders: Discharge Order (Routine); Ordered 07/15/23 Ordered By: Holden Baez/Other Patient Handouts: COVID-19 Home Care Admission Data Admit Date/Time: 07/13/23 21:42 Attending Provider: Holden Rodrigues Admit Provider: Bekah Sanabria Primary Care Provider: Shaniqua Price Other Providers: [facility]; [facility],Referral Center Other Interventions: Discharge Summary Assessment (RN) Last Done: 07/15/23 15:45 Coding Level of Care Code 11288 INP/OBS DISCH >30 MIN Diagnoses COVID-19 U07.1 Dementia F03.90
[2023-07-15 14:49] LABS: Appearance Urine Turbid (Clear); Bacteria Urine Automated 1+ (Negative); Bilirubin Urine Negative (Negative); Blood Urine 3+ (Negative); Color Urine Yellow; Epithelial Cell Urine Auto >30 /lpf (0-5); Glucose Urine UA Negative (Negative); Ketones Urine Negative (Negative); Leukocyte Esterase Urine 3+ (Negative); Nitrite Urine Positive (Negative); Protein Urine Trace (Negative); RBC Urine Automated >30 /hpf (0-4); Specific Gravity Urine 1.014 (1.000-1.030); Urobilinogen Urine Negative (Negative); WBC Urine Automated >30 /hpf (0-5)
[2023-07-15 15:59] VITALS: BP 121/72; PULSE 70; TEMP 98.1
[2023-07-17] MEDS ORDERED: HYDROXYUREA 500 MG CAP PO SCH (21:00)
== END 2023-07-15 16:40 | disposition home or self-care (01) ==
LOC: ED 17:36 → 3E 17:36 → SUATTDRO 21:42 → 3E 23:02